=== PATIENT | female | born 1960 | race Caucasian/White ===

== ENCOUNTER 2018-01-26 11:36 | Emergency (ER) | payer SELFPAY ==
[2018-01-26] MEDS ORDERED: ONDANSETRON 4 MG/2 ML VIAL ONE ×2 (12:32→13:35)
[2018-01-26] MEDS ORDERED: FENTANYL CITR 100 MCG/2 ML ONE (12:32)
[2018-01-26 12:33] LABS: Hematocrit 26.5 % (36.0-45.0); MPV 9.3 fL (7.6-11.3)
[2018-01-26 12:34] LABS: Absolute Lymphocytes (CBC) 0.9 K/uL (0.7-4.9); Absolute Monocytes 0.4 K/uL (0.1-1.3); Absolute Neutrophil 5.1 K/uL (1.8-8.0); Basophils % 0.4 % (0-1.3); Eosinophils % 0.2 % (0-4.4); Lymphocytes % 13.9 % (15.3-44.8); Monocytes % 6.3 % (3.3-12.3)
[2018-01-26 12:37] LABS: Protime INR 1.6
--- NOTE | 2018-01-26 13:09 | RAD REPORT ---
EXAM DESCRIPTION: RAD - Hip Left 2 View - 01/26/2018 1:00 pm CLINICAL HISTORY: Left hip pain status post fall FINDINGS: Subcapital fracture involves the proximal left femur with moderate displacement of fractur e fragments. Portion of the femoral neck may also be involved. No dislocation seen
[2018-01-26] MEDS ORDERED: MORPHINE 4 MG/ML SYR ONE ×4 (13:35→19:34)
[2018-01-26 13:36] LABS: ALT/SGPT 33 U/L (12-78); AST/SGOT 75 U/L (15-37); Albumin 2.8 g/dL (3.4-5.0); Alkaline Phosphatase 147 U/L (45-117); BUN Blood Urea Nitrogen 14 mg/dL (7-18); Bicarbonate 24 mmol/L (21-32); Bilirubin Total 1.8 mg/dL (0.2-1.0); Glucose Level 109 mg/dL (74-106); Potassium 3.6 mmol/L (3.5-5.1); Protein, Total 7.5 g/dL (6.4-8.2); Sodium Level 143 mmol/L (136-145)
[2018-01-26] MEDS ORDERED: NA CHLORIDE 0.9% 1,000 ML ONE ×2 (13:36→15:58)
--- NOTE | 2018-01-26 13:42 | RAD REPORT ---
EXAM DESCRIPTION: Aurea Single View01/26/2018 1:37 pm CLINICAL HISTORY: Chest pain COMPARISON: 2017 FINDINGS: The lungs appear clear of acute infiltrate. The heart is normal size IMPRESSION: No acute abnormalities displayed
--- NOTE | 2018-01-26 13:42 | EDPHYS ---
Physician Documentation [facility] Name: Jami Brewer Age: 57 yrs Sex: Female : 1960 Arrival Date: 01/26/2018 Time: 11:41 Bed 5 Private MD: Raymond Shaver ED Physician Blake Guzman HPI: 01/26 12:00 This 57 yrs old Female presents to ER via EMS with complaints of Fall Injury, pm1 Hip Pain. 12:00 Details of fall: The patient fell from an upright position, while walking. Onset: The pm1 symptoms/episode began/occurred yesterday. Associated injuries: The patient sustained left hip. Severity of symptoms: in the emergency department the symptoms are unchanged. The patient has not experienced similar symptoms in the past. The patient has not recently seen a physician. Patient was walking outside her apartment yesterday and tripped on some cobblestones and then landed on her left hip. No headache, head injury, LOC, or neck pain. Patient reports that she was not able to get up and bear weight. She crawled into her apartment. Called the EMS today because she could not get up. 15:30 Patient's friends report that she is an alcoholic and drinks alcohol daily. pm1 Historical: - Allergies: 11:48 No Known Allergies; ph - PMHx: 11:48 Ulcers; Depression; Hypertension; Cirrhosis; ph - Immunization history: Last tetanus immunization: unknown. - Social history:: Smoking status: Patient/guardian denies using tobacco, Patient uses alcohol, last drink was [address], marijuana. - Ebola Screening: : No symptoms or risks identified at this time. ROS: 12:00 Constitutional: Negative for fever, chills, and weight loss, Eyes: Negative for injury, pm1 pain, redness, and discharge, ENT: Negative for injury, pain, and discharge, Neck: Negative for injury, pain, and swelling, Cardiovascular: Negative for chest pain, palpitations, and edema, Respiratory: Negative for shortness of breath, cough, wheezing, and pleuritic chest pain, Abdomen/GI: Negative for abdominal pain, nausea, vomiting, diarrhea, and constipation, Back: Negative for injury and pain, : Negative for injury, bleeding, discharge, and swelling. 12:00 Skin: Negative for injury, rash, and discoloration, Neuro: Negative for headache, weakness, numbness, tingling, and seizure. 12:00 MS/extremity: Positive for pain, of the left hip. Exam: 12:00 Constitutional: This is a well developed, well nourished patient who is awake, alert, pm1 and in no acute distress. Head/Face: Normocephalic, atraumatic. Eyes: Pupils equal round and reactive to light, extra-ocular motions intact. Lids and lashes normal. Conjunctiva and sclera are non-icteric and not injected. Cornea within normal limits. Periorbital areas with no swelling, redness, or edema. ENT: Nares patent. No nasal discharge, no septal abnormalities noted. Tympanic membranes are normal and external auditory canals are clear. Oropharynx with no redness, swelling, or masses, exudates, or evidence of obstruction, uvula midline. Mucous membranes moist. Neck: Trachea midline, no thyromegaly or masses palpated, and no cervical lymphadenopathy. Supple, full range of motion without nuchal rigidity, or vertebral point tenderness. No Meningismus. Chest/axilla: Normal chest wall appearance and motion. Nontender with no deformity. No lesions are appreciated. Respiratory: Lungs have equal breath sounds bilaterally, clear to auscultation and percussion. No rales, rhonchi or wheezes noted. No increased work of breathing, no retractions or nasal flaring. Abdomen/GI: Soft, non-tender, with normal bowel sounds. No distension or tympany. No guarding or rebound. No evidence of tenderness throughout. 12:00 Back: No spinal tenderness. No costovertebral tenderness. Full range of motion. 12:00 Cardiovascular: Rate: tachycardic, Rhythm: regular, Pulses: no pulse deficits are appreciated, 2+ marked with pen on left foot , Heart sounds: normal, Edema: is not appreciated. 12:00 Musculoskeletal/extremity: Extremities: grossly normal except: noted in the left hip: pain, tenderness, Sensation intact. 12:00 Skin: Appearance: normal except for affected area, ecchymosis, small bruising present to left iliac crest and left hip. Vital Signs: 11:45 BP 131 / 66; Pulse 112; Resp 20; Temp 98.0; Pulse Ox 94% on R/A; Weight 64.86 kg; ph Height 5 ft. 7 in. (170.18 cm); Pain 10/10; 13:00 BP 119 / 57; Pulse 125; Resp 20; Pulse Ox 95% on R/A; ph 14:00 BP 139 / 72; Pulse 121; Resp 18; Pulse Ox 95% on R/A; ph 15:21 BP 134 / 64; Pulse 121; Resp 18; Pulse Ox 98% on 2 lpm NC; ph 16:15 BP 139 / 74; Pulse 129; Resp 18; Pulse Ox 96% on 2 lpm NC; ph 16:15 BP 149 / 73; Pulse 124; Resp 20; Pulse Ox 96% on 2 lpm NC; ph 19:28 BP 148 / 83; Pulse 121; Resp 17; Temp 98.2; Pulse Ox 98% ; Pain 6/10; tl1 11:45 Body Mass Index 22.40 (64.86 kg, 170.18 cm) ph Ashley Coma Score: 11:45 Eye Response: spontaneous(4). Verbal Response: oriented(5). Motor Response: obeys ph commands(6). Total: 15. 13:00 Eye Response: spontaneous(4). Verbal Response: oriented(5). Motor Response: obeys ph commands(6). Total: 15. 14:00 Eye Response: spontaneous(4). Verbal Response: oriented(5). Motor Response: obeys ph commands(6). Total: 15. 15:21 Eye Response: spontaneous(4). Verbal Response: oriented(5). Motor Response: obeys ph commands(6). Total: 15. 16:15 Eye Response: spontaneous(4). Verbal Response: oriented(5). Motor Response: obeys ph commands(6). Total: 15. 16:15 Eye Response: spontaneous(4). Verbal Response: oriented(5). Motor Response: obeys ph commands(6). Total: 15. 19:33 Eye Response: spontaneous(4). Verbal Response: oriented(5). Motor Response: obeys tl1 commands(6). Total: 15. Trauma Score (Adult): 11:45 Eye Response: spontaneous(1); Verbal Response: oriented(1); Motor Response: obeys ph commands(2); Systolic BP: > 89 mm Hg(4); Respiratory Rate: 10 to 29 per min(4); Ashley Score: 15; Trauma Score: 12 13:00 Eye Response: spontaneous(1); Verbal Response: oriented(1); Motor Response: obeys ph commands(2); Systolic BP: > 89 mm Hg(4); Respiratory Rate: 10 to 29 per min(4); Ashley Score: 15; Trauma Score: 12 14:00 Eye Response: spontaneous(1); Verbal Response: oriented(1); Motor Response: obeys ph commands(2); Systolic BP: > 89 mm Hg(4); Respiratory Rate: 10 to 29 per min(4); Ashley Score: 15; Trauma Score: 12 15:21 Eye Response: spontaneous(1); Verbal Response: oriented(1); Motor Response: obeys ph commands(2); Systolic BP: > 89 mm Hg(4); Respiratory Rate: 10 to 29 per min(4); Tyrone Score: 15; Trauma Score: 12 16:15 Eye Response: spontaneous(1); Verbal Response: oriented(1); Motor Response: obeys ph commands(2); Systolic BP: > 89 mm Hg(4); Respiratory Rate: 10 to 29 per min(4); Tyrone Score: 15; Trauma Score: 12 16:15 Eye Response: spontaneous(1); Verbal Response: oriented(1); Motor Response: obeys ph commands(2); Systolic BP: > 89 mm Hg(4); Respiratory Rate: 10 to 29 per min(4); Ashley Score: 15; Trauma Score: 12 19:33 Eye Response: spontaneous(1); Verbal Response: oriented(1); Motor Response: obeys tl1 commands(2); Systolic BP: > 89 mm Hg(4); Respiratory Rate: 10 to 29 per min(4); Tyrone Score: 15; Trauma Score: 12 MDM: 11:41 Patient medically screened. pm1 13:11 Data reviewed: vital signs. Counseling: I had a detailed discussion with the patient pm1 and/or guardian regarding: the historical points, exam findings, and any diagnostic results supporting the discharge/admit diagnosis, radiology results, the need for further work-up and treatment in the hospital. 13:46 Physician consultation: Frank Kellogg MD was called at 13:46, was contacted at 13:46, pm1 regarding consult, patient's condition, after a discussion of the case, a recommendation for transfer for higher level of care is made, Requests transfer due to liver cirrhosis history and abnormal liver enzymes and abnormal PT-INR profile. 14:34 Physician consultation: Frank Kellogg MD was called at 14:34, Consulted with pmDeng Kellogg. Declined to see the patient at this time. He would like the patient to be transferred for higher level of care due to liver cirrhosis and coagulopathy. Speciality for GI and infectious disease is present at [facility] for evaluation and treatment prior to surgery. 15:21 ED course: Spoke with Dr. Kellogg, who came to evaluate patient in ER, states pt with rn cirrhosis, a 1 day old injury, is stable, still recommends transfer given alcoholic cirrhosis, and coagulopathy. . 15:23 ED course: At this point, we have gotten administration, ER director, chief mechanical engineer rn involved to resolve this matter, ultimate direction that I received from these sources is to transfer for higher level of care. . 15:56 ED course: Patient accepted to [facility] without a report. pm1 01/26 12:23 Order name: CBC with Diff; Complete Time: 12:55 pm1 01/26 12:23 Order name: CMP; Complete Time: 13:39 pm1 01/26 11:52 Order name: Hip Left 2 View XRAY; Complete Time: 13:12 pm1 01/26 12:23 Order name: PT-INR; Complete Time: 12:55 pm1 01/26 12:58 Order name: Chest Single View XRAY; Complete Time: 13:46 pm1 01/26 13:14 Order name: Type And Screen; Complete Time: 15:19 pm1 01/26 11:55 Order name: IV Saline Lock; Complete Time: 12:25 pm1 01/26 12:58 Order name: EKG; Complete Time: 12:59 pm1 01/26 12:58 Order name: EKG - Nurse/Tech; Complete Time: 14:09 pm1 01/26 12:59 Order name: Urine Dipstick-Ancillary (obtain specimen); Complete Time: 15:18 pm1 Administered Medications: 12:26 Drug: Zofran 4 mg Route: IVP; Site: right antecubital; hb 13:30 Follow up: Response: No adverse reaction ph 12:28 Drug: fentaNYL (PF) 50 mcg Route: IVP; Site: right antecubital; hb 13:30 Follow up: Response: No adverse reaction ph 13:45 Drug: morphine 4 mg Route: IVP; Site: right forearm; ph 14:15 Follow up: Response: No adverse reaction; Pain is decreased ph 13:45 Drug: NS 0.9% 500 ml Route: IV; Rate: bolus; Site: right forearm; ph 14:30 Follow up: Response: No adverse reaction; IV Status: Completed infusion ph 14:55 Drug: NS 0.9% 1000 ml Route: IV; Rate: 100 ml/hr; Site: right forearm; ph 17:09 Follow up: Response: No adverse reaction; IV Status: Infusion continued upon admission ph 14:55 Drug: morphine 4 mg Route: IVP; Site: right forearm; ph 15:30 Follow up: Response: No adverse reaction; Pain is decreased ph 14:55 Drug: NS 0.9% 500 ml Route: IV; Rate: bolus; Site: right forearm; ph 15:45 Follow up: Response: No adverse reaction; IV Status: Completed infusion ph 15:54 Drug: Valium 5 mg Route: IVP; Site: right forearm; ph 16:15 Follow up: Response: No adverse reaction; Anxiety decreased ph 17:08 Drug: morphine 4 mg Route: IVP; Site: right forearm; ph 17:28 Follow up: Response: No adverse reaction; Pain is decreased ph 19:27 Drug: morphine 4 mg Route: IVP; Infused Over: 2 mins; Site: right forearm; tl1 19:28 Follow up: Response: No adverse reaction; Temperature is decreased; medication tl1 administered upon transfer Disposition: 01/26/18 13:[address] [facility]. Diagnosis are Subcapital fracture of the left proximal femur, Anemia, unspecified, Thrombocytopenia, unspecified, Alcohol dependence with withdrawal. - Reason for transfer: Higher level of care. - Accepting physician is [facility]. - Condition is Stable. - Problem is new. - Symptoms have improved. Addendum: 02/04/2018 06:58 Co-signature as Attending Physician, Blake Guzman MD. r n Signatures: Dispatcher [employer] EDBlake Zaragoza MD MD rn Lasagna, Tonya RN RN tl1 Yola Mathis RN RN Roshan Quinteros, MEDIA EXECUTIVE MEDIA EXECUTIVE pm1 Gala Alonso, ALEXI RN Corrections: (The following items were deleted from the chart) 01/26 13:52 13:42 Hospitalization Ordered by Sima Ott MD for Observation. Preliminary pm1 diagnosis is Left subcapital femur fracture ; Anemia, unspecified. Bed requested for Telemetry/MedSurg (observation). Status is Observation. Condition is Stable. Problem is new. Symptoms have improved. UTI on Admission? No. pm1 15:42 13:53 01/26/2018 13:[address] [facility]. Diagnosis is pm1 Subcapital fracture of the left proximal femur. Reason for transfer: Higher level of care. Accepting physician is [facility]. Condition is Stable. Problem is new. Symptoms have improved. pm1 19:16 15:42 01/26/2018 13:[address] [facility]. Diagnosis is tl1 Subcapital fracture of the left proximal femur; Anemia, unspecified; Thrombocytopenia, unspecified; Alcohol dependence with withdrawal. Reason for transfer: Higher level of care. Accepting physician is [facility]. Condition is Stable. Problem is new. Symptoms have improved. pm1 19:44 19:16 01/26/2018 13:[address] [facility]. Diagnosis is tl1 Subcapital fracture of the left proximal femur; Anemia, unspecified; Thrombocytopenia, unspecified; Alcohol dependence with withdrawal. Reason for transfer: Higher level of care. Accepting physician is [facility]. Condition is Stable. Problem is new. Symptoms have improved. tl1
--- NOTE | 2018-01-26 13:42 | ER ---
Nurse's Notes [facility] Name: Jami Brewer Age: 57 yrs Sex: Female : 1960 Arrival Date: 01/26/2018 Time: 11:41 Bed 5 Private MD: Raymond Shaver Diagnosis: Subcapital fracture of the left proximal femur;Anemia, unspecified;Thrombocytopenia, unspecified;Alcohol dependence with withdrawal Presentation: 01/26 11:42 Presenting complaint: EMS states: Pt reports falling 3 times in the last 2 weeks, fel ph yesterday onto [place] and is c/o pain in L hip, states that she did hit her head but denies LOC or blood thinner use, also c/o pain in R elbow, hx of depression and recently started taking citalopram which she thinks may be contributing to her falling. Care prior to arrival: None. Mechanism of Injury: Fall from standing position. Trauma event details: Injury occurred in the [facility], Injury occurred: at home. Injury occurred: January 25, 2018. 11:42 Acuity: PRECIOUS 3 ph 11:42 Method Of Arrival: EMS: [facility] ph 11:57 Transition of care: patient was not received from another setting of care. Onset of ph symptoms was January 26, 2018. Risk Assessment: Do you want to hurt yourself or someone else? Patient reports no desire to harm self or others. Initial Sepsis Screen: Does the patient meet any 2 criteria? No. Patient's initial sepsis screen is negative. Does the patient have a suspected source of infection? No. Patient's initial sepsis screen is negative. Trauma Activation: Not Applicable Physician: ED Physician; Name: ; Notified At: ; Arrived At: Physician: General Surgeon; Name: ; Notified At: ; Arrived At: Physician: Radiology; Name: ; Notified At: ; Arrived At: Physician: Respiratory; Name: ; Notified At: ; Arrived At: Physician: Lab; Name: ; Notified At: ; Arrived At: Historical: - Allergies: 11:48 No Known Allergies; ph - PMHx: 11:48 Ulcers; Depression; Hypertension; Cirrhosis; ph - Immunization history: Last tetanus immunization: unknown. - Social history:: Smoking status: Patient/guardian denies using tobacco, Patient uses alcohol, last drink was [address], marijuana. - Ebola Screening: : No symptoms or risks identified at this time. Screenin:52 Abuse screen: Denies threats or abuse. Denies injuries from another. Nutritional ph screening: No deficits noted. Tuberculosis screening: No symptoms or risk factors identified. Fall Risk Fall in past 12 months (25 points). No secondary diagnosis (0 pts). No IV (0 pts). Ambulatory Aid- None/Bed Rest/Nurse Assist (0 pts). Gait- Impaired (20 pts.). Mental Status- Oriented to own ability (0 pts). Total Angulo Fall Scale indicates High Risk Score (45 or more points). Fall prevention measures have been instituted. Side Rails Up X 2 Frequent Obs/Assessments Occuring As available patient and family educated on Fall Prevention Program and Strategies. Primary Survey: 11:48 NO uncontrolled hemorrhage observed. A: The patient is alert. Airway: patent, No ph supplemental oxygen in use on arrival. Oral cavity: clear, Trachea midline. Breathing/Chest: Respiratory pattern: regular, Respiratory effort: spontaneous, unlabored, Breath sounds: clear, bilaterally. Chest inspection: symmetrical rise and fall of the chest. Circulation: Pulses: palpable right radial artery, right dorsalis pedis artery, left radial artery and left dorsalis pedis artery. Skin color: pink, Skin temperature: warm, dry. Disability Alert. Exposure/Environment: There is no evidence of uncontrolled external bleeding. Obvious injury(ies) are noted at this time: pt c/o pain to L hip and R elbow. 14:11 Reassessment Breathing/Chest Respiratory pattern Regular Respiratory effort Spontaneous ph Unlabored Disability Alert. Secondary Survey: 11:58 HEENT: No deficits noted. Gastrointestinal: No deficits noted. : No signs and/or ph symptoms were reported regarding the genitourinary system. Musculoskeletal: Circulation, motion, and sensation intact. Range of motion: limited in left hip. Assessment: 11:54 General: Appears in no apparent distress. uncomfortable, Behavior is calm, cooperative, ph appropriate for age. Pain: Complains of pain in left upper thigh and right shoulder. Neuro: Level of Consciousness is awake, alert, obeys commands, Oriented to person, place, time, situation. Cardiovascular: Capillary refill < 3 seconds in bilateral fingers Patient's skin is warm and dry. Respiratory: Airway is patent Respiratory effort is even, unlabored, Respiratory pattern is regular, symmetrical. GI: No signs and/or symptoms were reported involving the gastrointestinal system. Derm: Skin is intact, is healthy with good turgor, Skin is pink, warm \\T\\ dry. Bruising that is dark purple, on left hip. Musculoskeletal: Circulation, motion, and sensation intact. Range of motion: limited in left hip. 13:45 Reassessment: Patient appears in no apparent distress at this time. Patient and/or ph family updated on plan of care and expected duration. Pain level reassessed. Patient is alert, oriented x 3, equal unlabored respirations, skin warm/dry/pink. Attempted to place Bledsoe pt, unable to do so, charge nurse also attempted and was unsuccessful as well. 14:00 Reassessment: Patient appears in no apparent distress at this time. Stephanie CROSSP ph at bedside to attempt Bledsoe placement. 14:35 Reassessment: Patient appears in no apparent distress at this time. Patient and/or ph family updated on plan of care and expected duration. Pain level reassessed. Patient is alert, oriented x 3, equal unlabored respirations, skin warm/dry/pink. Pt rates pain 9/10 at this time, repositioned onto R side with pillows behind back for comfort, pt states, " That helped a little bit." ERP notified of pt's pain level, see MAR for orders. 15:18 Reassessment: Patient appears in no apparent distress at this time. Patient and/or ph family updated on plan of care and expected duration. Pain level reassessed. Patient is alert, oriented x 3, equal unlabored respirations, skin warm/dry/pink. 16:00 Reassessment: Patient appears in no apparent distress at this time. Patient and/or ph family updated on plan of care and expected duration. Pain level reassessed. Patient is alert, oriented x 3, equal unlabored respirations, skin warm/dry/pink. 17:00 Reassessment: Patient appears in no apparent distress at this time. Patient and/or ph family updated on plan of care and expected duration. Pain level reassessed. Patient is alert, oriented x 3, equal unlabored respirations, skin warm/dry/pink. Report called to [facility], awaiting EMS for transport. Vital Signs: 11:45 BP 131 / 66; Pulse 112; Resp 20; Temp 98.0; Pulse Ox 94% on R/A; Weight 64.86 kg; ph Height 5 ft. 7 in. (170.18 cm); Pain 10/10; 13:00 BP 119 / 57; Pulse 125; Resp 20; Pulse Ox 95% on R/A; ph 14:00 BP 139 / 72; Pulse 121; Resp 18; Pulse Ox 95% on R/A; ph 15:21 BP 134 / 64; Pulse 121; Resp 18; Pulse Ox 98% on 2 lpm NC; ph 16:15 BP 139 / 74; Pulse 129; Resp 18; Pulse Ox 96% on 2 lpm NC; ph 16:15 BP 149 / 73; Pulse 124; Resp 20; Pulse Ox 96% on 2 lpm NC; ph 19:28 BP 148 / 83; Pulse 121; Resp 17; Temp 98.2; Pulse Ox 98% ; Pain 6/10; tl1 11:45 Body Mass Index 22.40 (64.86 kg, 170.18 cm) ph Ashley Coma Score: 11:45 Eye Response: spontaneous(4). Verbal Response: oriented(5). Motor Response: obeys ph commands(6). Total: 15. 13:00 Eye Response: spontaneous(4). Verbal Response: oriented(5). Motor Response: obeys ph commands(6). Total: 15. 14:00 Eye Response: spontaneous(4). Verbal Response: oriented(5). Motor Response: obeys ph commands(6). Total: 15. 15:21 Eye Response: spontaneous(4). Verbal Response: oriented(5). Motor Response: obeys ph commands(6). Total: 15. 16:15 Eye Response: spontaneous(4). Verbal Response: oriented(5). Motor Response: obeys ph commands(6). Total: 15. 16:15 Eye Response: spontaneous(4). Verbal Response: oriented(5). Motor Response: obeys ph commands(6). Total: 15. 19:33 Eye Response: spontaneous(4). Verbal Response: oriented(5). Motor Response: obeys tl1 commands(6). Total: 15. Trauma Score (Adult): 11:45 Eye Response: spontaneous(1); Verbal Response: oriented(1); Motor Response: obeys ph commands(2); Systolic BP: > 89 mm Hg(4); Respiratory Rate: 10 to 29 per min(4); Ashley Score: 15; Trauma Score: 12 13:00 Eye Response: spontaneous(1); Verbal Response: oriented(1); Motor Response: obeys ph commands(2); Systolic BP: > 89 mm Hg(4); Respiratory Rate: 10 to 29 per min(4); [place] Score: 15; Trauma Score: 12 14:00 Eye Response: spontaneous(1); Verbal Response: oriented(1); Motor Response: obeys ph commands(2); Systolic BP: > 89 mm Hg(4); Respiratory Rate: 10 to 29 per min(4); Ashley Score: 15; Trauma Score: 12 15:21 Eye Response: spontaneous(1); Verbal Response: oriented(1); Motor Response: obeys ph commands(2); Systolic BP: > 89 mm Hg(4); Respiratory Rate: 10 to 29 per min(4); Ashley Score: 15; Trauma Score: 12 16:15 Eye Response: spontaneous(1); Verbal Response: oriented(1); Motor Response: obeys ph commands(2); Systolic BP: > 89 mm Hg(4); Respiratory Rate: 10 to 29 per min(4); Ashley Score: 15; Trauma Score: 12 16:15 Eye Response: spontaneous(1); Verbal Response: oriented(1); Motor Response: obeys ph commands(2); Systolic BP: > 89 mm Hg(4); Respiratory Rate: 10 to 29 per min(4); [place] Score: 15; Trauma Score: 12 19:33 Eye Response: spontaneous(1); Verbal Response: oriented(1); Motor Response: obeys tl1 commands(2); Systolic BP: > 89 mm Hg(4); Respiratory Rate: 10 to 29 per min(4); [place] Score: 15; Trauma Score: 12 ED Course: 11:41 Patient arrived in ED. ph 11:41 Roshan Lewis NP is PHCP. pm1 11:41 Blake Guzman MD is Attending Physician. pm1 11:45 Triage completed. ph 11:51 Marnie Vaz, ALEXI is Primary Nurse. sv 11:52 Arm band placed on. ph 11:56 Patient has correct armband on for positive identification. Bed in low position. Call ph light in reach. Side rails up X2. Pulse ox on. NIBP on. Warm blanket given. Pillow given. 11:58 Patient maintains SpO2 saturation greater than 95% on room air. Thermoregulation: warm ph blanket given to patient. 12:24 Yola Mathis RN is Primary Nurse. ph 12:24 Initial lab(s) drawn, by la, sent to lab. Inserted saline lock: 22 gauge in right jb1 forearm, using aseptic technique. Blood collected. 12:55 X-ray completed. Portable x-ray completed in exam room. Patient tolerated procedure ag1 poorly. 13:00 Hip Left 2 View XRAY In Process Unspecified. EDMS 13:18 No provider procedures requiring assistance completed. ph 13:23 EKG done, by pharmacy technology instructor. reviewed by Roshan Lewis NP. dt2 13:37 Chest Single View XRAY In Process Unspecified. EDMS 13:39 Sima Ott MD is Hospitalizing Provider. pm1 13:45 X-ray completed. Portable x-ray completed in exam room. ag1 14:06 Initiate a transfer with Nieves at [facility] transfer center. lt1 14:30 Bledsoe cath inserted, using sterile technique, 16 Fr., by ED staff, balloon inflated, to ph gravity drainage, urine specimen collected. returned glen urine. Patient tolerated well. 15:00 Patient was declined to transfer to [facility] per Nieves at the transfer center due lt1 to hospital being full. 15:02 Raymond Shaver MD is Private Physician. lt1 15:35 Initiate transfer with Shirley at [facility]. lt1 15:56 administrative approval given by Shirley Reddy RN head transfer clerk/ pt going to the ER/ eb Report to be called [phone]/ Dr. Wiggins accepted the patient in transfer. 19:22 Primary Nurse role handed off by Yola Mathis RN tl1 19:32 Patient transferred, IV remains in place. tl1 Administered Medications: 12:26 Drug: Zofran 4 mg Route: IVP; Site: right antecubital; hb 13:30 Follow up: Response: No adverse reaction ph 12:28 Drug: fentaNYL (PF) 50 mcg Route: IVP; Site: right antecubital; hb 13:30 Follow up: Response: No adverse reaction ph 13:45 Drug: morphine 4 mg Route: IVP; Site: right forearm; ph 14:15 Follow up: Response: No adverse reaction; Pain is decreased ph 13:45 Drug: NS 0.9% 500 ml Route: IV; Rate: bolus; Site: right forearm; ph 14:30 Follow up: Response: No adverse reaction; IV Status: Completed infusion ph 14:55 Drug: NS 0.9% 1000 ml Route: IV; Rate: 100 ml/hr; Site: right forearm; ph 17:09 Follow up: Response: No adverse reaction; IV Status: Infusion continued upon admission ph 14:55 Drug: morphine 4 mg Route: IVP; Site: right forearm; ph 15:30 Follow up: Response: No adverse reaction; Pain is decreased ph 14:55 Drug: NS 0.9% 500 ml Route: IV; Rate: bolus; Site: right forearm; ph 15:45 Follow up: Response: No adverse reaction; IV Status: Completed infusion ph 15:54 Drug: Valium 5 mg Route: IVP; Site: right forearm; ph 16:15 Follow up: Response: No adverse reaction; Anxiety decreased ph 17:08 Drug: morphine 4 mg Route: IVP; Site: right forearm; ph 17:28 Follow up: Response: No adverse reaction; Pain is decreased ph 19:27 Drug: morphine 4 mg Route: IVP; Infused Over: 2 mins; Site: right forearm; tl1 19:28 Follow up: Response: No adverse reaction; Temperature is decreased; medication tl1 administered upon transfer Intake: 11:45 PO: 0ml; Total: 0ml. ph 15:21 IV: 1000ml (IV Fluid); Total: 1000ml. ph 16:15 IV: 100ml (IV Fluid); Total: 1100ml. ph 16:15 IV: 100ml (IV Fluid); Total: 1200ml. ph Output: 11:45 Urine: 0ml; Total: 0ml. ph 16:15 Urine: 400ml (Bledsoe); Total: 400ml. ph Outcome: 13:42 Decision to Hospitalize by Provider. pm1 13:53 ER care complete, transfer ordered by MD. pm1 19:16 Patient left the ED. tl1 19:31 Transferred by ground EMS to [facility], Transfer form completed. X-rays sent tl1 w/ patient. 19:31 Condition: stable 19:31 Instructed on the need for transfer. 19:32 accepting facility acceptance of patient Patient's length of stay extended due to tl1 19:44 Patient left the ED. tl1 Signatures: Dispatcher [employer] ED Aakash Evans jb1 Marnie Vaz, ALEXI TRUONG sv Karen Hanson RN RN tl1 Yola Mathis RN RN Judith Carvalho ag1 Roshan Lewis, GEOTHERMAL TECHNICIAN GEOTHERMAL TECHNICIAN pm1 Gala Alonso RN RN hb Botello, Elizabeth eb Teague, Danielle dt2 Megan Queen 1 Corrections: (The following items were deleted from the chart) 12:56 12:54 X-ray completed. Portable x-ray completed in exam room. Patient tolerated ag1 procedure well. ag1 15:57 11:45 morphine 4 mg IVP in right forearm ph ph
[2018-01-26] MEDS ORDERED: DIAZEPAM 10 MG/2 ML INJ SYRINGE ONE (15:53)
--- NOTE | 2018-01-26 18:06 | EKG ---
Test Date: 2018-01-26 Test Time: 13:17:04 Zone Maintenance Technician: MANOHAR MEASUREMENT RESULTS: Intervals: Rate: 120 VT: 146 QRSD: 80 QT: 340 QTc: 480 [place]: P: 85 VT: 146 QRS: 73 T: 76 INTERPRETIVE STATEMENTS: Sinus tachycardia Minimal voltage criteria for LVH, may be normal variant Borderline ECG Compared to ECG 08/31/2016 23:43:00 Left ventricular hypertrophy now present Myocardial infarct finding no longer present Electronically Signed On 01-26-18 18:04:46 SENIOR QC TECHNICIAN by Iban Levine
--- OUTSIDE RECORDS SUMMARY | 2018-01-26 18:54 | XMS REPORT ---
:1960 [facility] Address [address] [place] [id number] Care Team Providers Name Role Phone STEPHANIE MAYA Unavailable Unavailable Problems This patient has no known problems. Allergies, Adverse Reactions, Alerts This patient has no known allergies or adverse reactions. Medications This patient has no known medications. Results Test Description Test Time Test Comments Text Results Atomic Results Result Comments BLOOD CULTURE 2016-09-06 11:00:00 Test Item Value Reference Range Comments CULTURE (BEAKER) (test ldyu=2048) No growth in 5 days BLOOD [id number] 11:00:00 Test Item Value Reference Range Comments CULTURE (BEAKER) (test iqgv=6425) No growth in 5 days CBC W/PLT COUNT & AUTO [id number] 08:38:00 Test Item Value Reference Range Comments WHITE BLOOD CELL COUNT (BEAKER) (test hxso=456) 9.6 K/ L 3.5-10.5 RED BLOOD CELL COUNT (BEAKER) (test hogk=284) 3.00 M/ L 3.93-5.22 HEMOGLOBIN (BEAKER) (test ciuy=063) 7.4 GM/DL 11.2-15.7 HEMATOCRIT (BEAKER) (test jshe=961) 24.4 % 34.1-44.9 MEAN CORPUSCULAR VOLUME (BEAKER) (test wqhy=459) 81.3 fL 79.4-94.8 MEAN CORPUSCULAR HEMOGLOBIN (BEAKER) (test 24.7 pg 25.6-32.2 qodd=442) MEAN CORPUSCULAR HEMOGLOBIN CONC (BEAKER) (test 30.3 GM/DL 32.2-35.5 tshx=415) RED CELL DISTRIBUTION WIDTH (BEAKER) (test 22.5 % 11.7-14.4 vfec=695) PLATELET COUNT (BEAKER) (test gqts=082) 91 K/CU MM 150-450 MEAN PLATELET VOLUME (BEAKER) (test cfmx=394) 10.3 fL 9.4-12.3 NUCLEATED RED BLOOD CELLS (BEAKER) (test 0 /100 WBC 0-0 waxi=652) NEUTROPHILS RELATIVE PERCENT (BEAKER) (test 71 % jpmi=088) LYMPHOCYTES RELATIVE PERCENT (BEAKER) (test 15 % ewbi=612) MONOCYTES RELATIVE PERCENT (BEAKER) (test 10 % ytyk=049) EOSINOPHILS RELATIVE PERCENT (BEAKER) (test 4 % zbci=883) BASOPHILS RELATIVE PERCENT (BEAKER) (test 1 % kuis=047) NEUTROPHILS ABSOLUTE COUNT (BEAKER) (test 6.82 K/ L 1.56-6.13 eddv=192) LYMPHOCYTES ABSOLUTE COUNT (BEAKER) (test 1.39 K/ L 1.18-3.74 ityk=287) MONOCYTES ABSOLUTE COUNT (BEAKER) (test kgay=939) 0.92 K/ L 0.24-0.36 EOSINOPHILS ABSOLUTE COUNT (BEAKER) (test 0.37 K/ L 0.04-0.36 kkfg=594) BASOPHILS ABSOLUTE COUNT (BEAKER) (test fgmw=577) 0.06 K/ L 0.01-0.08 IMMATURE GRANULOCYTES-RELATIVE PERCENT (BEAKER) 1 % 0-1 (test rqlp=8249) COMPREHENSIVE METABOLIC [id number] 07:11:00 Test Item Value Reference Range Comments TOTAL PROTEIN (BEAKER) 6.5 gm/dL 6.0-8.3 (test pczc=787) ALBUMIN (BEAKER) (test 2.2 g/dL 3.5-5.0 hyxy=9610) ALKALINE PHOSPHATASE 111 U/L 40-150 (BEAKER) (test mpwf=819) BILIRUBIN TOTAL (BEAKER) 3.2 mg/dL 0.2-1.2 (test plzu=009) SODIUM (BEAKER) (test 139 meq/L 136-145 vfhc=727) POTASSIUM (BEAKER) (test 3.2 meq/L 3.5-5.1 vrmd=489) CHLORIDE (BEAKER) (test 105 meq/L 98-107 rcvl=514) CO2 (BEAKER) (test 27 meq/L 22-29 kkxc=738) BLOOD UREA NITROGEN 4 mg/dL 7-21 (BEAKER) (test nrsu=053) CREATININE (BEAKER) (test 0.63 mg/dL 0.57-1.25 ccxh=838) GLUCOSE RANDOM (BEAKER) 107 mg/dL 70-105 (test rvfb=549) CALCIUM (BEAKER) (test 7.7 mg/dL 8.4-10.2 gath=243) AST (SGOT) (BEAKER) (test 55 U/L 5-34 mxux=620) ALT (SGPT) (BEAKER) (test 17 U/L 6-55 evtg=507) EGFR (BEAKER) (test 98 mL/min/1.73 sq m ESTIMATED GFR IS NOT pntz=3555) ACCURATE CREATININE CLEARANCE IN PREDICTING GLOMERULAR FILTRATION RATE. ESTIMATED GFR IS NOT APPLICABLE FOR DIALYSIS PATIENTS. Specimen slightly ictericPROTHROMBIN [id number] 06:07:00 Test Item Value Reference Range Comments PROTIME (BEAKER) (test yttz=395) 23.2 seconds 11.7-14.7 INR (BEAKER) (test rjzi=606) 2.1 <=5.9 RECOMMENDED COUMADIN/WARFARIN INR THERAPY RANGESSTANDARD DOSE: 2.0 - 3.0 Includes: PROPHYLAXIS forvenous thrombosis, systemic embolization; TREATMENT for venous thrombosis and/or pulmonary embolus.HIGH RISK: Target INR is 2.5-3.5 for patients with mechanical heart valves.BODY FLUID CULTURE + GRAM [id number] 00:14:00 Test Item Value Reference Range Comments CULTURE (BEAKER) (test ptun=0024) No growth GRAM STAIN RESULT (BEAKER) (test No WBCs ddnq=9106) GRAM STAIN RESULT (BEAKER) (test No organisms seen uwji=29047) HEMOGLOBIN AND [id number] 23:16:00 Test Item Value Reference Range Comments HEMOGLOBIN (BEAKER) (test sjkg=741) 7.4 GM/DL 11.2-15.7 HEMATOCRIT (BEAKER) (test rzkt=728) 24.6 % 34.1-44.9 HEMOGLOBIN AND [id number] 10:55:00 Test Item Value Reference Range Comments HEMOGLOBIN (BEAKER) (test ecjp=545) 8.2 GM/DL 11.2-15.7 HEMATOCRIT (BEAKER) (test kvkk=633) 27.2 % 34.1-44.9 CBC W/PLT COUNT & AUTO [id number] 09:09:00 Test Item Value Reference Range Comments WHITE BLOOD CELL COUNT 7.7 K/ L 3.5-10.5 (BEAKER) (test rupl=875) RED BLOOD CELL COUNT (BEAKER) 3.02 M/ L 3.93-5.22 (test clrr=549) HEMOGLOBIN (BEAKER) (test 7.4 GM/DL 11.2-15.7 nanx=882) HEMATOCRIT (BEAKER) (test 24.0 % 34.1-44.9 bfhi=240) MEAN CORPUSCULAR VOLUME 79.5 fL 79.4-94.8 (BEAKER) (test tufn=568) MEAN CORPUSCULAR HEMOGLOBIN 24.5 pg 25.6-32.2 (BEAKER) (test dxdh=894) MEAN CORPUSCULAR HEMOGLOBIN 30.8 GM/DL 32.2-35.5 CONC (BEAKER) (test ihpj=715) RED CELL DISTRIBUTION WIDTH 22.2 % 11.7-14.4 (BEAKER) (test kitv=747) PLATELET COUNT (BEAKER) (test 77 K/CU MM 150-450 srwk=693) MEAN PLATELET VOLUME (BEAKER) fL 9.4-12.3 Unable to report due to (test vkwr=540) abnormal Platelet population distribution. NUCLEATED RED BLOOD CELLS 0 /100 WBC 0-0 (BEAKER) (test vtfg=665) NEUTROPHILS RELATIVE PERCENT 69 % (BEAKER) (test vtyz=760) LYMPHOCYTES RELATIVE PERCENT 15 % (BEAKER) (test ayws=486) MONOCYTES RELATIVE PERCENT 11 % (BEAKER) (test bsiy=290) EOSINOPHILS RELATIVE PERCENT 4 % (BEAKER) (test gtol=143) BASOPHILS RELATIVE PERCENT 1 % (BEAKER) (test qlbv=197) NEUTROPHILS ABSOLUTE COUNT 5.26 K/ L 1.56-6.13 (BEAKER) (test wcgu=644) LYMPHOCYTES ABSOLUTE COUNT 1.16 K/ L 1.18-3.74 (BEAKER) (test ziax=495) MONOCYTES ABSOLUTE COUNT 0.84 K/ L 0.24-0.36 (BEAKER) (test fchj=263) EOSINOPHILS ABSOLUTE COUNT 0.30 K/ L 0.04-0.36 (BEAKER) (test bxpu=600) BASOPHILS ABSOLUTE COUNT 0.06 K/ L 0.01-0.08 (BEAKER) (test cfpk=455) IMMATURE GRANULOCYTES-RELATIVE 1 % 0-1 PERCENT (BEAKER) (test qjyp=3762) COMPREHENSIVE METABOLIC [id number] 07:08:00 Test Item Value Reference Range Comments TOTAL PROTEIN (BEAKER) 6.8 gm/dL 6.0-8.3 (test cskp=971) ALBUMIN (BEAKER) (test 2.3 g/dL 3.5-5.0 qmqj=8530) ALKALINE PHOSPHATASE 116 U/L 40-150 (BEAKER) (test vyit=338) BILIRUBIN TOTAL (BEAKER) 3.3 mg/dL 0.2-1.2 (test effl=143) SODIUM (BEAKER) (test 137 meq/L 136-145 gvww=148) POTASSIUM (BEAKER) (test 3.0 meq/L 3.5-5.1 ypnb=763) CHLORIDE (BEAKER) (test 103 meq/L 98-107 asnc=503) CO2 (BEAKER) (test 27 meq/L 22-29 zbad=432) BLOOD UREA NITROGEN 5 mg/dL 7-21 (BEAKER) (test dwsf=873) CREATININE (BEAKER) (test 0.61 mg/dL 0.57-1.25 hoaq=116) GLUCOSE RANDOM (BEAKER) 112 mg/dL 70-105 (test hkii=936) CALCIUM (BEAKER) (test 7.5 mg/dL 8.4-10.2 pvgs=044) AST (SGOT) (BEAKER) (test 55 U/L 5-34 zdyg=507) ALT (SGPT) (BEAKER) (test 17 U/L 6-55 fqid=483) EGFR (BEAKER) (test 102 mL/min/1.73 sq ESTIMATED GFR IS NOT wusc=1812) m ACCURATE CREATININE CLEARANCE IN PREDICTING GLOMERULAR FILTRATION RATE. ESTIMATED GFR IS NOT APPLICABLE FOR DIALYSIS PATIENTS. Specimen slightly ictericPROTHROMBIN [id number] 06:40:00 Test Item Value Reference Range Comments PROTIME (BEAKER) (test gfcj=667) 23.1 seconds 11.7-14.7 INR (BEAKER) (test mvtr=219) 2.0 <=5.9 RECOMMENDED COUMADIN/WARFARIN INR THERAPY RANGESSTANDARD DOSE: 2.0 - 3.0 Includes: PROPHYLAXIS forvenous thrombosis, systemic embolization; TREATMENT for venous thrombosis and/or pulmonary embolus.HIGH RISK: Target INR is 2.5-3.5 for patients with mechanical heart valves.HEMOGLOBIN AND [id number] 21 :22:00 Test Item Value Reference Range Comments HEMOGLOBIN (BEAKER) (test cevi=414) 8.0 GM/DL 11.2-15.7 HEMATOCRIT (BEAKER) (test bnpd=429) 26.2 % 34.1-44.9 ANTI-NUCLEAR ANTIBODY (FLORES)2016-09-02 13:41:00 Test Item Value Reference Range Comments ANTI-NUCLEAR ANTIBODY (FLORES) (BEAKER) (test Negative Negative fasz=640) CBC W/PLT COUNT & AUTO [id number] 06:28:00 Test Item Value Reference Range Comments WHITE BLOOD CELL COUNT (BEAKER) (test anwc=187) 5.6 K/ L 3.5-10.5 RED BLOOD CELL COUNT (BEAKER) (test tinf=223) 2.98 M/ L 3.93-5.22 HEMOGLOBIN (BEAKER) (test xvmh=710) 7.4 GM/DL 11.2-15.7 HEMATOCRIT (BEAKER) (test dyga=373) 23.7 % 34.1-44.9 MEAN CORPUSCULAR VOLUME (BEAKER) (test itgk=166) 79.5 fL 79.4-94.8 MEAN CORPUSCULAR HEMOGLOBIN (BEAKER) (test 24.8 pg 25.6-32.2 nhuq=937) MEAN CORPUSCULAR HEMOGLOBIN CONC (BEAKER) (test 31.2 GM/DL 32.2-35.5 ghwj=150) RED CELL DISTRIBUTION WIDTH (BEAKER) (test 21.3 % 11.7-14.4 elbk=819) PLATELET COUNT (BEAKER) (test bjmx=772) 77 K/CU MM 150-450 MEAN PLATELET VOLUME (BEAKER) (test mzah=184) 10.4 fL 9.4-12.3 NUCLEATED RED BLOOD CELLS (BEAKER) (test 0 /100 WBC 0-0 ghog=654) NEUTROPHILS RELATIVE PERCENT (BEAKER) (test 63 % qyxm=790) LYMPHOCYTES RELATIVE PERCENT (BEAKER) (test 21 % oehl=706) MONOCYTES RELATIVE PERCENT (BEAKER) (test 12 % dimr=093) EOSINOPHILS RELATIVE PERCENT (BEAKER) (test 3 % nvsm=037) BASOPHILS RELATIVE PERCENT (BEAKER) (test 1 % olap=310) NEUTROPHILS ABSOLUTE COUNT (BEAKER) (test 3.53 K/ L 1.56-6.13 igjt=858) LYMPHOCYTES ABSOLUTE COUNT (BEAKER) (test 1.15 K/ L 1.18-3.74 yuok=747) MONOCYTES ABSOLUTE COUNT (BEAKER) (test ttln=979) 0.68 K/ L 0.24-0.36 EOSINOPHILS ABSOLUTE COUNT (BEAKER) (test 0.17 K/ L 0.04-0.36 rrbb=371) BASOPHILS ABSOLUTE COUNT (BEAKER) (test jfcs=490) 0.05 K/ L 0.01-0.08 IMMATURE GRANULOCYTES-RELATIVE PERCENT (BEAKER) 1 % 0-1 (test nxhv=6141) COMPREHENSIVE METABOLIC [id number] 05:34:00 Test Item Value Reference Range Comments TOTAL PROTEIN (BEAKER) 7.0 gm/dL 6.0-8.3 (test msqq=138) ALBUMIN (BEAKER) (test 2.4 g/dL 3.5-5.0 djob=7010) ALKALINE PHOSPHATASE 120 U/L 40-150 (BEAKER) (test krlg=156) BILIRUBIN TOTAL (BEAKER) 2.7 mg/dL 0.2-1.2 (test dpxx=018) SODIUM (BEAKER) (test 137 meq/L 136-145 vtsc=878) POTASSIUM (BEAKER) (test 3.7 meq/L 3.5-5.1 yrhh=836) CHLORIDE (BEAKER) (test 106 meq/L 98-107 nvyd=272) CO2 (BEAKER) (test 25 meq/L 22-29 eplx=012) BLOOD UREA NITROGEN 9 mg/dL 7-21 (BEAKER) (test fxeb=657) CREATININE (BEAKER) (test 0.61 mg/dL 0.57-1.25 nxtb=588) GLUCOSE RANDOM (BEAKER) 135 mg/dL 70-105 (test zmeg=059) CALCIUM (BEAKER) (test 7.3 mg/dL 8.4-10.2 mrmq=549) AST (SGOT) (BEAKER) (test 67 U/L 5-34 dtue=700) ALT (SGPT) (BEAKER) (test 21 U/L 6-55 uxxk=400) EGFR (BEAKER) (test 102 mL/min/1.73 sq ESTIMATED GFR IS NOT corp=3802) m ACCURATE CREATININE CLEARANCE IN PREDICTING GLOMERULAR FILTRATION RATE. ESTIMATED GFR IS NOT APPLICABLE FOR DIALYSIS PATIENTS. Specimen slightly ictericPROTHROMBIN [id number] 05:31:00 Test Item Value Reference Range Comments PROTIME (BEAKER) (test llgo=925) 21.1 seconds 11.7-14.7 INR (BEAKER) (test xwkd=660) 1.8 <=5.9 RECOMMENDED COUMADIN/WARFARIN INR THERAPY RANGESSTANDARD DOSE: 2.0 - 3.0 Includes: PROPHYLAXIS forvenous thrombosis, systemic embolization; TREATMENT for venous thrombosis and/or pulmonary embolus.HIGH RISK: Target INR is 2.5-3.5 for patients with mechanical heart valves.HEMOGLOBIN AND [id number] 05 :26:00 Test Item Value Reference Range Comments HEMOGLOBIN (BEAKER) (test pnzn=731) 7.4 GM/DL 11.2-15.7 HEMATOCRIT (BEAKER) (test blri=859) 23.7 % 34.1-44.9 HEMOGLOBIN AND [id number] 23:31:00 Test Item Value Reference Range Comments HEMOGLOBIN (BEAKER) (test wasp=568) 7.1 GM/DL 11.2-15.7 HEMATOCRIT (BEAKER) (test dhgz=153) 22.9 % 34.1-44.9 URINALYSIS W/ [id number] 22:47:00 Test Item Value Reference Range Comments COLOR (BEAKER) (test deuk=591) Yellow CLARITY (BEAKER) (test xxmk=613) Clear SPECIFIC GRAVITY UA (BEAKER) (test fuvu=964) 1.017 1.001-1.035 PH UA (BEAKER) (test iarh=187) 6.0 5.0-8.0 PROTEIN UA (BEAKER) (test ljvi=574) Negative Negative GLUCOSE UA (BEAKER) (test ijli=018) Negative Negative KETONES UA (BEAKER) (test bqrt=958) Negative Negative BILIRUBIN UA (BEAKER) (test exkx=259) Negative Negative BLOOD UA (BEAKER) (test rrnf=167) Trace Negative NITRITE UA (BEAKER) (test tgce=308) Positive Negative LEUKOCYTE ESTERASE UA (BEAKER) (test dnhg=744) Negative Negative UROBILINOGEN UA (BEAKER) (test jkdx=708) 0.2 mg/dL 0.2-1.0 RBC UA (BEAKER) (test jcpl=847) 1 /HPF WBC UA (BEAKER) (test iaey=257) 5 /HPF BACTERIA (BEAKER) (test nvsm=071) Rare MUCUS (BEAKER) (test ikxq=9918) Rare SQUAMOUS EPITHELIAL (BEAKER) (test mivm=857) 1 /HPF SOURCE(BEAKER) (test mgtk=9097) Urine, Voided BODY FLUID CELL COUNT WITH [id number] 20:32:00 Test Item Value Reference Range Comments APPEARANCE FLUID (BEAKER) (test ubjz=168) Slightly Hazy Clear COLOR FLUID (BEAKER) (test ykje=355) Straw Colorless, Straw RBC FLUID (BEAKER) (test fkfk=571) 230 /cu mm <=1 ADJUSTED WBC FLUID (BEAKER) (test seao=5968) 105 /cu mm <=5 LINING CELLS (BEAKER) (test xiox=3783) 5 /cu mm <=1 NEUTROPHILS FLUID (BEAKER) (test izpi=8674) 11 % LYMPHS FLUID (BEAKER) (test ngfu=780) 8 % MONO/MACROPHAGE FLUID (BEAKER) (test 81 % qhax=207) EOSINOPHILS FLUID (BEAKER) (test dfir=793) 0 % BASO FLUID (BEAKER) (test nzgh=100) 0 % CONTAINER BODY FLUID (BEAKER) (test EDTA Tube tpqf=7942) HEMOGLOBIN AND [id number] 17:45:00 Test Item Value Reference Range Comments HEMOGLOBIN (BEAKER) (test tlrv=578) 7.0 GM/DL 11.2-15.7 HEMATOCRIT (BEAKER) (test euxn=992) 22.5 % 34.1-44.9 ALBUMIN, BODY [id number] 17:14:00 Test Item Value Reference Range Comments ALBUMIN FLUID (BEAKER) (test dtag=037) < gm/dL Reference Range: No Normals Assay performance has not been validated for this type of specimen.PROTEIN, BODY [id number] 17:14:00 Test Item Value Reference Range Comments PROTEIN FLUID (BEAKER) (test jnem=691) < g/dL Absence of reference range indicates that normals have not been defined.Assay performance has not been validated for this type of specimen.TRIGLYCERIDES, BODY [id number] 17:10:00 Test Item Value Reference Range Comments TRIGLYCERIDES FLUID (BEAKER) (test sdfo=557) 12 mg/dL Reference Range: No Normals Assay performance has not been validated for this type of specimen.HEMOGLOBIN AND [id number] 13:36:00 Test Item Value Reference Range Comments HEMOGLOBIN (BEAKER) (test nlgn=414) 7.0 GM/DL 11.2-15.7 HEMATOCRIT (BEAKER) (test xyet=375) 22.5 % 34.1-44.9 CBC W/PLT COUNT & AUTO [id number] 09:05:00 Test Item Value Reference Range Comments WHITE BLOOD CELL COUNT (BEAKER) (test edex=861) 6.2 K/ L 3.5-10.5 RED BLOOD CELL COUNT (BEAKER) (test oatt=441) 3.12 M/ L 3.93-5.22 HEMOGLOBIN (BEAKER) (test qfii=686) 7.7 GM/DL 11.2-15.7 HEMATOCRIT (BEAKER) (test xnyt=841) 25.4 % 34.1-44.9 MEAN CORPUSCULAR VOLUME (BEAKER) (test lrkw=309) 81.4 fL 79.4-94.8 MEAN CORPUSCULAR HEMOGLOBIN (BEAKER) (test 24.7 pg 25.6-32.2 kxij=400) MEAN CORPUSCULAR HEMOGLOBIN CONC (BEAKER) (test 30.3 GM/DL 32.2-35.5 rwuz=503) RED CELL DISTRIBUTION WIDTH (BEAKER) (test 21.4 % 11.7-14.4 llgp=622) PLATELET COUNT (BEAKER) (test dwqf=330) 90 K/CU MM 150-450 MEAN PLATELET VOLUME (BEAKER) (test zpsx=199) 10.1 fL 9.4-12.3 NUCLEATED RED BLOOD CELLS (BEAKER) (test 0 /100 WBC 0-0 lexq=816) NEUTROPHILS RELATIVE PERCENT (BEAKER) (test 58 % dnyc=491) LYMPHOCYTES RELATIVE PERCENT (BEAKER) (test 27 % ryth=264) MONOCYTES RELATIVE PERCENT (BEAKER) (test 13 % ldkl=930) EOSINOPHILS RELATIVE PERCENT (BEAKER) (test 1 % fucc=228) BASOPHILS RELATIVE PERCENT (BEAKER) (test 1 % olly=009) NEUTROPHILS ABSOLUTE COUNT (BEAKER) (test 3.57 K/ L 1.56-6.13 nvfx=615) LYMPHOCYTES ABSOLUTE COUNT (BEAKER) (test 1.69 K/ L 1.18-3.74 rzmp=836) MONOCYTES ABSOLUTE COUNT (BEAKER) (test gpaw=962) 0.79 K/ L 0.24-0.36 EOSINOPHILS ABSOLUTE COUNT (BEAKER) (test 0.06 K/ L 0.04-0.36 ywfq=633) BASOPHILS ABSOLUTE COUNT (BEAKER) (test vbma=107) 0.04 K/ L 0.01-0.08 IMMATURE GRANULOCYTES-RELATIVE PERCENT (BEAKER) 1 % 0-1 (test cbqq=1826) (MANUAL DIFFERENTIAL)2016-09-01 09:05:00 Test Item Value Reference Range Comments TOTAL COUNTED (BEAKER) (test wznr=2499) WBC MORPHOLOGY (BEAKER) (test cjba=404) Normal PLT MORPHOLOGY (BEAKER) (test ngby=669) Normal HYPOCHROMIA (BEAKER) (test lwov=243) 1+ few POLYCHROMATOPHILLIC RBCS(BEAKER) (test jjpo=426) 1+ few TARGET CELLS (BEAKER) (test ysai=576) 1+ few TEAR DROP CELLS (BEAKER) (test wcfd=734) 1+ few [id number] 07:47:00 Test Item Value Reference Range Comments FERRITIN (BEAKER) (test tdjg=910) 17 ng/mL 5-275 Effective 12/24/2013: Reference Range ChangeNew: Male 5-275 Previous: Male 22-322 Female 5-275 Female 10-291ALPHA FETOPROTEIN (AFP), TUMOR [id number] 07:47:00 Test Item Value Reference Range Comments ALPHA-FETOPROTEIN (BEAKER) (test evon=1911) 3.0 ng/mL <10.0 Effective 12/24/2013: Reference Range ChangeNew: <10.0 Previous: 0.0- 8.0IRON, TIBC, % SAT. (WITHOUT FERRITIN)2016-09-01 07:34:00 Test Item Value Reference Range Comments IRON (BEAKER) (test qtll=113) 25 ug/dL 40-160 TOTAL IRON BINDING CAPACITY (BEAKER) (test 276 ug/dL 250-450 cfed=246) IRON % SATURATION (2) (BEAKER) (test mduz=4215) 9 % 20-55 LACTIC ACID, VENOUS, WHOLE [id number] 07:10:00 Test Item Value Reference Range Comments LACTATE BLOOD VENOUS (2) 3.2 mmol/L 0.5-2.2 Specimen slightly hemolyzed (BEAKER) (test ffwn=4727) Effective 06/10/2015: Units/Reference Range ChangeNew: 0.5-2.2 mmol/L Previous: 5 -20 mg/dLHEMOGLOBIN AND [id number] 06:51:00 Test Item Value Reference Range Comments HEMOGLOBIN (BEAKER) (test geky=671) 7.2 GM/DL 11.2-15.7 HEMATOCRIT (BEAKER) (test voys=473) 23.3 % 34.1-44.9 HEPATITIS A [id number] 04:15:00 Test Item Value Reference Range Comments HEPATITIS A IGM ANTIBODY (BEAKER) (test Nonreactive Nonreactive kgmm=230) HEPATITIS A IGG ANTIBODY (BEAKER) (test Reactive Nonreactive vhvr=2768) CARCINOEMBRYONIC ANTIGEN (CEA)2016-09-01 04:05:00 Test Item Value Reference Range Comments CARCINOEMBRYONIC ANTIGEN (BEAKER) (test nvzi=514) 8.6 ng/mL 0.0-5.0 TSH/FREE T4 IF [id number] 04:05:00 Test Item Value Reference Range Comments THYROID STIMULATING HORMONE (BEAKER) (test 0.43 uIU/mL 0.35-4.94 nglu=775) HEPATITIS PANEL, [id number] 04:01:00 Test Item Value Reference Range Comments HEPATITIS A IGM ANTIBODY (BEAKER) (test Nonreactive Nonreactive efhz=021) HEPATITIS B CORE IGM ANTIBODY (BEAKER) (test Nonreactive Nonreactive mrtl=536) HEPATITIS C ANTIBODY (BEAKER) (test pbzo=623) Nonreactive Nonreactive HEPATITIS B SURFACE ANTIGEN (2) (BEAKER) (test Nonreactive Nonreactive lakr=2198) HEPATITIS B [id number] 04:01:00 Test Item Value Reference Range Comments HEPATITIS B CORE TOTAL ANTIBODY (BEAKER) (test Nonreactive Nonreactive drwl=155) HEPATITIS B SURFACE ANTIBODY (BEAKER) (test 24.0 mIU/mL <8.0 lsxz=335) HEPATITIS B SURFACE ANTIGEN (2) (BEAKER) (test Nonreactive Nonreactive zpbv=3124) HIV-1 ANTIGEN WITH HIV-1/2 [id number] 04:01:00 Test Item Value Reference Range Comments HIV-1 ANTIGEN WITH HIV 1\T\2 ANTIBODY (2) Nonreactive Nonreactive (BEAKER) (test wbms=8999) [id number] 03:45:00 Test Item Value Reference Range Comments AMMONIA (BEAKER) (test nziw=215) 80 mol/L 18-72 LACTIC ACID, VENOUS, WHOLE [id number] 03:45:00 Test Item Value Reference Range Comments LACTATE BLOOD VENOUS (2) 3.7 mmol/L 0.5-2.2 Specimen slightly hemolyzed (BEAKER) (test hnuw=7031) Effective 06/10/2015: Units/Reference Range ChangeNew: 0.5-2.2 mmol/L Previous: 5 -20 mg/dLCOMPREHENSIVE METABOLIC [id number] 03:35:00 Test Item Value Reference Range Comments TOTAL PROTEIN (BEAKER) 7.0 gm/dL 6.0-8.3 (test fwdd=297) ALBUMIN (BEAKER) (test 2.4 g/dL 3.5-5.0 eqcg=4343) ALKALINE PHOSPHATASE 123 U/L 40-150 (BEAKER) (test ohui=554) BILIRUBIN TOTAL (BEAKER) 1.8 mg/dL 0.2-1.2 (test bmuh=561) SODIUM (BEAKER) (test 139 meq/L 136-145 aroz=396) POTASSIUM (BEAKER) (test 4.9 meq/L 3.5-5.1 ccsl=961) CHLORIDE (BEAKER) (test 109 meq/L 98-107 avhn=395) CO2 (BEAKER) (test 21 meq/L 22-29 hnaz=155) BLOOD UREA NITROGEN 11 mg/dL 7-21 (BEAKER) (test emmd=583) CREATININE (BEAKER) (test 0.72 mg/dL 0.57-1.25 xnov=006) GLUCOSE RANDOM (BEAKER) 90 mg/dL 70-105 (test jzje=079) CALCIUM (BEAKER) (test 7.1 mg/dL 8.4-10.2 trlb=010) AST (SGOT) (BEAKER) (test 74 U/L 5-34 zfiv=021) ALT (SGPT) (BEAKER) (test 21 U/L 6-55 ukib=779) EGFR (BEAKER) (test 84 mL/min/1.73 sq m ESTIMATED GFR IS NOT onth=2476) ACCURATE CREATININE CLEARANCE IN PREDICTING GLOMERULAR FILTRATION RATE. ESTIMATED GFR IS NOT APPLICABLE FOR DIALYSIS PATIENTS. [id number] 03:28:00 Test Item Value Reference Range Comments PHOSPHORUS (BEAKER) (test kvby=407) 3.8 mg/dL 2.3-4.7 [id number] 03:28:00 Test Item Value Reference Range Comments MAGNESIUM (BEAKER) (test sfnq=219) 1.5 mg/dL 1.6-2.6 PROTHROMBIN TIME/[id number] 03:18:00 Test Item Value Reference Range Comments PROTIME (BEAKER) (test pshz=381) 22.6 seconds 11.7-14.7 INR (BEAKER) (test aife=411) 2.0 <=5.9 RECOMMENDED COUMADIN/WARFARIN INR THERAPY RANGESSTANDARD DOSE: 2.0 - 3.0 Includes: PROPHYLAXIS forvenous thrombosis, systemic embolization; TREATMENT for venous thrombosis and/or pulmonary embolus.HIGH RISK: Target INR is 2.5-3.5 for patients with mechanical heart valves.
--- OUTSIDE RECORDS SUMMARY | 2018-01-26 18:54 | XMS REPORT | Clinical Summary ---
:1960 [facility] Address [address] [place] [address] Care Team Providers Name Role Phone SivakumarRaymond Primary Care Provider Allergies No Known Allergies Medications Medication Sig Dispensed Refills Start Date End Date Status escitalopram oxalate Take 10 mg by 0 Active (LEXAPRO) 10 MG tablet mouth daily. loratadine (CLARITIN) Take 10 mg by 0 Active 10 mg tablet mouth daily. carvedilol (COREG) Take 1 tablet 60 tablet 1 09/04/2016 Active 3.125 MG tablet (3.125 mg total) by mouth 2 (two) times daily. folic acid (FOLVITE) 1 Take 1 tablet 30 tablet 1 09/04/2016 Active MG tablet (1 mg total) by mouth daily. lactulose (CHRONULAC) Take 15 mLs (10 1350 mL 1 09/04/2016 Active 20 gram/30 mL solution g total) by mouth 3 (three) times daily. thiamine (VITAMIN B-1) Take 1 tablet 30 tablet 1 09/04/2016 Active 50 MG tablet (50 mg total) by mouth daily. pantoprazole Take 1 tablet 60 tablet 1 09/04/2016 Active (PROTONIX) 40 MG (40 mg total) tablet by mouth 2 (two) times daily. furosemide (LASIX) 40 Take 1 tablet 30 tablet 1 09/04/2016 09/04/2017 MG tablet (40 mg total) by mouth daily. spironolactone Take 1 tablet 30 tablet 1 09/04/2016 09/04/2017 (ALDACTONE) 100 MG (100 mg total) tablet by mouth daily. potassium chloride Take 2 tablets 60 tablet 1 09/04/2016 09/04/2017 (KLOR-CON) 10 MEQ CR (20 mEq total) tablet by mouth daily. Active Problems Problem Noted Date Acute GI bleeding 09/01/2016 Acute blood loss anemia 09/01/2016 Alcohol withdrawal syndrome without complication 09/01/2016 Cirrhosis of liver with ascites 09/01/2016 Coagulopathy 09/01/2016 Thrombocytopenia 09/01/2016 Social History Tobacco Use Types Packs/Day Years Used Date Former Smoker Alcohol Use Drinks/Week oz/Week Comments Yes 2 Glasses of wine 1.2 Sex Assigned at Date Recorded Not on file Job Start Date Occupation Industry Not on file Not on file Not on file Travel History Travel Start Travel End No recent travel history available. Last Filed Vital Signs Not on file Plan of Treatment Not on file Results Not on fileafter 01/25/2017 Advance Directives For more information, please contact:[address] [phone] Code Status Date Activated Date Inactivated Comments Full Code 09/01/2016 10:09 AM 09/04/2016 3:57 PM This code status was determined by: Patient
== END 2018-01-26 19:44 | disposition short-term general hospital (02) ==
LOC: ER 11:36
DX: S72.012A Unspecified intracapsular fracture of left femur, initial encounter for closed fracture (principal); D64.9 Anemia, unspecified; D69.6 Thrombocytopenia, unspecified; F10.239 Alcohol dependence with withdrawal, unspecified; W01.0XXA Fall on same level from slipping, tripping and stumbling without subsequent striking against object, initial encounter; Y93.01 Activity, walking, marching and hiking; Y92.89 Other specified places as the place of occurrence of the external cause; I10 Essential (primary) hypertension
CPT/HCPCS: 36415; 51702; 71045; 80053; 85025; 85610; 86850; 86900; 86901; 93005; 99285; J2405; J3010; J3360; J7030

== ENCOUNTER 2018-02-07 12:42 | Emergency (ER) | payer SELFPAY ==
--- OUTSIDE RECORDS SUMMARY | 2018-02-07 12:46 | XMS REPORT | Clinical Summary ---
:1960 [facility] Address [address] [place] [address] Care Team Providers Name Role Phone SivakumarRaymond [...] Not on file Results Not on fileafter 02/06/2017 Advance Directives For more information, please contact:[address] [phone] Code Status Date Activated Date Inactivated Comments Full Code 09/01/2016 10:09 AM 09/04/2016 3:57 PM This code status was determined by: Patient
--- OUTSIDE RECORDS SUMMARY | 2018-02-07 12:47 | XMS REPORT ---
:1960 [facility] Address [address] [place] [address] Care Team Providers Name Role Phone STEPHANIE MAYA Unavailable Unavailable Problems This patient has no known problems. Allergies, Adverse Reactions, Alerts This patient has no known allergies or adverse reactions. Medications This patient has no known medications. Results Test Description Test Time Test Comments Text Results Atomic Results Result Comments BLOOD CULTURE 2016-09-06 11:00:00 Test Item Value Reference Range Comments CULTURE (BEAKER) (test twqo=9297) No growth in 5 days BLOOD [id number] 11:00:00 Test Item Value Reference Range Comments CULTURE (BEAKER) (test ixdq=0575) No growth in 5 days CBC W/PLT COUNT & AUTO [id number] 08:38:00 Test Item Value Reference Range Comments WHITE BLOOD CELL COUNT (BEAKER) (test zdgl=554) 9.6 K/ L 3.5-10.5 RED BLOOD CELL COUNT (BEAKER) (test ntib=285) 3.00 M/ L 3.93-5.22 HEMOGLOBIN (BEAKER) (test sfwj=730) 7.4 GM/DL 11.2-15.7 HEMATOCRIT (BEAKER) (test ukuv=582) 24.4 % 34.1-44.9 MEAN CORPUSCULAR VOLUME (BEAKER) (test cgjp=832) 81.3 fL 79.4-94.8 MEAN CORPUSCULAR HEMOGLOBIN (BEAKER) (test 24.7 pg 25.6-32.2 lkww=077) MEAN CORPUSCULAR HEMOGLOBIN CONC (BEAKER) (test 30.3 GM/DL 32.2-35.5 wooy=843) RED CELL DISTRIBUTION WIDTH (BEAKER) (test 22.5 % 11.7-14.4 xwre=742) PLATELET COUNT (BEAKER) (test fmgs=487) 91 K/CU MM 150-450 MEAN PLATELET VOLUME (BEAKER) (test hxuq=281) 10.3 fL 9.4-12.3 NUCLEATED RED BLOOD CELLS (BEAKER) (test 0 /100 WBC 0-0 ghdq=692) NEUTROPHILS RELATIVE PERCENT (BEAKER) (test 71 % fkbb=807) LYMPHOCYTES RELATIVE PERCENT (BEAKER) (test 15 % mfke=661) MONOCYTES RELATIVE PERCENT (BEAKER) (test 10 % nlhw=059) EOSINOPHILS RELATIVE PERCENT (BEAKER) (test 4 % ajcc=076) BASOPHILS RELATIVE PERCENT (BEAKER) (test 1 % lnkh=483) NEUTROPHILS ABSOLUTE COUNT (BEAKER) (test 6.82 K/ L 1.56-6.13 swug=370) LYMPHOCYTES ABSOLUTE COUNT (BEAKER) (test 1.39 K/ L 1.18-3.74 sgij=314) MONOCYTES ABSOLUTE COUNT (BEAKER) (test akae=992) 0.92 K/ L 0.24-0.36 EOSINOPHILS ABSOLUTE COUNT (BEAKER) (test 0.37 K/ L 0.04-0.36 ailb=886) BASOPHILS ABSOLUTE COUNT (BEAKER) (test umuw=604) 0.06 K/ L 0.01-0.08 IMMATURE GRANULOCYTES-RELATIVE PERCENT (BEAKER) 1 % 0-1 (test gqlf=4121) COMPREHENSIVE METABOLIC [id number] 07:11:00 Test Item Value Reference Range Comments TOTAL PROTEIN (BEAKER) 6.5 gm/dL 6.0-8.3 (test wxco=524) ALBUMIN (BEAKER) (test 2.2 g/dL 3.5-5.0 ivcw=0132) ALKALINE PHOSPHATASE 111 U/L 40-150 (BEAKER) (test bzfl=139) BILIRUBIN TOTAL (BEAKER) 3.2 mg/dL 0.2-1.2 (test notp=076) SODIUM (BEAKER) (test 139 meq/L 136-145 hwrk=829) POTASSIUM (BEAKER) (test 3.2 meq/L 3.5-5.1 vsjd=594) CHLORIDE (BEAKER) (test 105 meq/L 98-107 rhrv=180) CO2 (BEAKER) (test 27 meq/L 22-29 srau=983) BLOOD UREA NITROGEN 4 mg/dL 7-21 (BEAKER) (test ybqv=377) CREATININE (BEAKER) (test 0.63 mg/dL 0.57-1.25 dwkm=900) GLUCOSE RANDOM (BEAKER) 107 mg/dL 70-105 (test phxs=550) CALCIUM (BEAKER) (test 7.7 mg/dL 8.4-10.2 azhp=015) AST (SGOT) (BEAKER) (test 55 U/L 5-34 rjkp=647) ALT (SGPT) (BEAKER) (test 17 U/L 6-55 rrua=855) EGFR (BEAKER) (test 98 mL/min/1.73 sq m ESTIMATED GFR IS NOT hvca=4659) ACCURATE CREATININE CLEARANCE IN PREDICTING GLOMERULAR FILTRATION RATE. ESTIMATED GFR IS NOT APPLICABLE FOR DIALYSIS PATIENTS. Specimen slightly ictericPROTHROMBIN [id number] 06:07:00 Test Item Value Reference Range Comments PROTIME (BEAKER) (test rvow=350) 23.2 seconds 11.7-14.7 INR (BEAKER) (test tmhk=228) 2.1 <=5.9 RECOMMENDED COUMADIN/WARFARIN INR THERAPY RANGESSTANDARD DOSE: 2.0 - 3.0 Includes: PROPHYLAXIS forvenous thrombosis, systemic embolization; TREATMENT for venous thrombosis and/or pulmonary embolus.HIGH RISK: Target INR is 2.5-3.5 for patients with mechanical heart valves.BODY FLUID CULTURE + GRAM [id number] 00:14:00 Test Item Value Reference Range Comments CULTURE (BEAKER) (test dkzx=4943) No growth GRAM STAIN RESULT (BEAKER) (test No WBCs npnr=1455) GRAM STAIN RESULT (BEAKER) (test No organisms seen yykl=90765) HEMOGLOBIN AND [id number] 23:16:00 Test Item Value Reference Range Comments HEMOGLOBIN (BEAKER) (test ibrj=581) 7.4 GM/DL 11.2-15.7 HEMATOCRIT (BEAKER) (test aihc=386) 24.6 % 34.1-44.9 HEMOGLOBIN AND [id number] 10:55:00 Test Item Value Reference Range Comments HEMOGLOBIN (BEAKER) (test zfol=181) 8.2 GM/DL 11.2-15.7 HEMATOCRIT (BEAKER) (test dtjj=010) 27.2 % 34.1-44.9 CBC W/PLT COUNT & AUTO [id number] 09:09:00 Test Item Value Reference Range Comments WHITE BLOOD CELL COUNT 7.7 K/ L 3.5-10.5 (BEAKER) (test scvj=998) RED BLOOD CELL COUNT (BEAKER) 3.02 M/ L 3.93-5.22 (test rmht=469) HEMOGLOBIN (BEAKER) (test 7.4 GM/DL 11.2-15.7 rufw=248) HEMATOCRIT (BEAKER) (test 24.0 % 34.1-44.9 jyon=967) MEAN CORPUSCULAR VOLUME 79.5 fL 79.4-94.8 (BEAKER) (test xdmt=911) MEAN CORPUSCULAR HEMOGLOBIN 24.5 pg 25.6-32.2 (BEAKER) (test ccpt=963) MEAN CORPUSCULAR HEMOGLOBIN 30.8 GM/DL 32.2-35.5 CONC (BEAKER) (test uzij=695) RED CELL DISTRIBUTION WIDTH 22.2 % 11.7-14.4 (BEAKER) (test jfsl=337) PLATELET COUNT (BEAKER) (test 77 K/CU MM 150-450 flve=419) MEAN PLATELET VOLUME (BEAKER) fL 9.4-12.3 Unable to report due to (test qkxp=315) abnormal Platelet population distribution. NUCLEATED RED BLOOD CELLS 0 /100 WBC 0-0 (BEAKER) (test lggj=239) NEUTROPHILS RELATIVE PERCENT 69 % (BEAKER) (test lulv=311) LYMPHOCYTES RELATIVE PERCENT 15 % (BEAKER) (test npfi=104) MONOCYTES RELATIVE PERCENT 11 % (BEAKER) (test bqkt=613) EOSINOPHILS RELATIVE PERCENT 4 % (BEAKER) (test udxs=776) BASOPHILS RELATIVE PERCENT 1 % (BEAKER) (test lram=103) NEUTROPHILS ABSOLUTE COUNT 5.26 K/ L 1.56-6.13 (BEAKER) (test mqiz=266) LYMPHOCYTES ABSOLUTE COUNT 1.16 K/ L 1.18-3.74 (BEAKER) (test jaxg=014) MONOCYTES ABSOLUTE COUNT 0.84 K/ L 0.24-0.36 (BEAKER) (test ytae=470) EOSINOPHILS ABSOLUTE COUNT 0.30 K/ L 0.04-0.36 (BEAKER) (test zsjh=197) BASOPHILS ABSOLUTE COUNT 0.06 K/ L 0.01-0.08 (BEAKER) (test popd=612) IMMATURE GRANULOCYTES-RELATIVE 1 % 0-1 PERCENT (BEAKER) (test wbwk=5765) COMPREHENSIVE METABOLIC [id number] 07:08:00 Test Item Value Reference Range Comments TOTAL PROTEIN (BEAKER) 6.8 gm/dL 6.0-8.3 (test cewo=465) ALBUMIN (BEAKER) (test 2.3 g/dL 3.5-5.0 gbrs=5199) ALKALINE PHOSPHATASE 116 U/L 40-150 (BEAKER) (test kgyq=155) BILIRUBIN TOTAL (BEAKER) 3.3 mg/dL 0.2-1.2 (test inmb=496) SODIUM (BEAKER) (test 137 meq/L 136-145 pund=828) POTASSIUM (BEAKER) (test 3.0 meq/L 3.5-5.1 qvrn=584) CHLORIDE (BEAKER) (test 103 meq/L 98-107 koem=378) CO2 (BEAKER) (test 27 meq/L 22-29 azys=204) BLOOD UREA NITROGEN 5 mg/dL 7-21 (BEAKER) (test sqng=749) CREATININE (BEAKER) (test 0.61 mg/dL 0.57-1.25 bwlm=203) GLUCOSE RANDOM (BEAKER) 112 mg/dL 70-105 (test doen=044) CALCIUM (BEAKER) (test 7.5 mg/dL 8.4-10.2 kxtq=873) AST (SGOT) (BEAKER) (test 55 U/L 5-34 eexe=559) ALT (SGPT) (BEAKER) (test 17 U/L 6-55 taem=756) EGFR (BEAKER) (test 102 mL/min/1.73 sq ESTIMATED GFR IS NOT spfh=3171) m ACCURATE CREATININE CLEARANCE IN PREDICTING GLOMERULAR FILTRATION RATE. ESTIMATED GFR IS NOT APPLICABLE FOR DIALYSIS PATIENTS. Specimen slightly ictericPROTHROMBIN [id number] 06:40:00 Test Item Value Reference Range Comments PROTIME (BEAKER) (test cjja=908) 23.1 seconds 11.7-14.7 INR (BEAKER) (test bmip=110) 2.0 <=5.9 RECOMMENDED COUMADIN/WARFARIN INR THERAPY RANGESSTANDARD DOSE: 2.0 - 3.0 Includes: PROPHYLAXIS forvenous thrombosis, systemic embolization; TREATMENT for venous thrombosis and/or pulmonary embolus.HIGH RISK: Target INR is 2.5-3.5 for patients with mechanical heart valves.HEMOGLOBIN AND [id number] 21 :22:00 Test Item Value Reference Range Comments HEMOGLOBIN (BEAKER) (test smyh=660) 8.0 GM/DL 11.2-15.7 HEMATOCRIT (BEAKER) (test zdig=164) 26.2 % 34.1-44.9 ANTI-NUCLEAR ANTIBODY (FLORES)2016-09-02 13:41:00 Test Item Value Reference Range Comments ANTI-NUCLEAR ANTIBODY (FLORES) (BEAKER) (test Negative Negative zosk=803) CBC W/PLT COUNT & AUTO [id number] 06:28:00 Test Item Value Reference Range Comments WHITE BLOOD CELL COUNT (BEAKER) (test aqeh=052) 5.6 K/ L 3.5-10.5 RED BLOOD CELL COUNT (BEAKER) (test qsla=835) 2.98 M/ L 3.93-5.22 HEMOGLOBIN (BEAKER) (test quoc=031) 7.4 GM/DL 11.2-15.7 HEMATOCRIT (BEAKER) (test arib=492) 23.7 % 34.1-44.9 MEAN CORPUSCULAR VOLUME (BEAKER) (test hnvk=666) 79.5 fL 79.4-94.8 MEAN CORPUSCULAR HEMOGLOBIN (BEAKER) (test 24.8 pg 25.6-32.2 mevg=083) MEAN CORPUSCULAR HEMOGLOBIN CONC (BEAKER) (test 31.2 GM/DL 32.2-35.5 lmwj=920) RED CELL DISTRIBUTION WIDTH (BEAKER) (test 21.3 % 11.7-14.4 cdsg=940) PLATELET COUNT (BEAKER) (test xleg=734) 77 K/CU MM 150-450 MEAN PLATELET VOLUME (BEAKER) (test uwhh=968) 10.4 fL 9.4-12.3 NUCLEATED RED BLOOD CELLS (BEAKER) (test 0 /100 WBC 0-0 psys=929) NEUTROPHILS RELATIVE PERCENT (BEAKER) (test 63 % mksz=202) LYMPHOCYTES RELATIVE PERCENT (BEAKER) (test 21 % qkit=188) MONOCYTES RELATIVE PERCENT (BEAKER) (test 12 % qszm=629) EOSINOPHILS RELATIVE PERCENT (BEAKER) (test 3 % rjub=001) BASOPHILS RELATIVE PERCENT (BEAKER) (test 1 % bxog=973) NEUTROPHILS ABSOLUTE COUNT (BEAKER) (test 3.53 K/ L 1.56-6.13 qnav=666) LYMPHOCYTES ABSOLUTE COUNT (BEAKER) (test 1.15 K/ L 1.18-3.74 aaid=381) MONOCYTES ABSOLUTE COUNT (BEAKER) (test rigp=364) 0.68 K/ L 0.24-0.36 EOSINOPHILS ABSOLUTE COUNT (BEAKER) (test 0.17 K/ L 0.04-0.36 echc=999) BASOPHILS ABSOLUTE COUNT (BEAKER) (test sqqy=488) 0.05 K/ L 0.01-0.08 IMMATURE GRANULOCYTES-RELATIVE PERCENT (BEAKER) 1 % 0-1 (test rrgp=5455) COMPREHENSIVE METABOLIC [id number] 05:34:00 Test Item Value Reference Range Comments TOTAL PROTEIN (BEAKER) 7.0 gm/dL 6.0-8.3 (test bsip=849) ALBUMIN (BEAKER) (test 2.4 g/dL 3.5-5.0 dsdm=0598) ALKALINE PHOSPHATASE 120 U/L 40-150 (BEAKER) (test zrxt=844) BILIRUBIN TOTAL (BEAKER) 2.7 mg/dL 0.2-1.2 (test lvgr=279) SODIUM (BEAKER) (test 137 meq/L 136-145 aqog=697) POTASSIUM (BEAKER) (test 3.7 meq/L 3.5-5.1 mhii=505) CHLORIDE (BEAKER) (test 106 meq/L 98-107 fkii=383) CO2 (BEAKER) (test 25 meq/L 22-29 swwy=474) BLOOD UREA NITROGEN 9 mg/dL 7-21 (BEAKER) (test xlqt=108) CREATININE (BEAKER) (test 0.61 mg/dL 0.57-1.25 tvfs=800) GLUCOSE RANDOM (BEAKER) 135 mg/dL 70-105 (test dqng=454) CALCIUM (BEAKER) (test 7.3 mg/dL 8.4-10.2 izab=321) AST (SGOT) (BEAKER) (test 67 U/L 5-34 bslz=505) ALT (SGPT) (BEAKER) (test 21 U/L 6-55 mnkp=984) EGFR (BEAKER) (test 102 mL/min/1.73 sq ESTIMATED GFR IS NOT wjrt=2849) m ACCURATE CREATININE CLEARANCE IN PREDICTING GLOMERULAR FILTRATION RATE. ESTIMATED GFR IS NOT APPLICABLE FOR DIALYSIS PATIENTS. Specimen slightly ictericPROTHROMBIN TIME/[id number] 05:31:00 Test Item Value Reference Range Comments PROTIME (BEAKER) (test evxs=635) 21.1 seconds 11.7-14.7 INR (BEAKER) (test wtjb=094) 1.8 <=5.9 RECOMMENDED COUMADIN/WARFARIN INR THERAPY RANGESSTANDARD DOSE: 2.0 - 3.0 Includes: PROPHYLAXIS forvenous thrombosis, systemic embolization; TREATMENT for venous thrombosis and/or pulmonary embolus.HIGH RISK: Target INR is 2.5-3.5 for patients with mechanical heart valves.HEMOGLOBIN AND [id number] 05 :26:00 Test Item Value Reference Range Comments HEMOGLOBIN (BEAKER) (test mjhe=714) 7.4 GM/DL 11.2-15.7 HEMATOCRIT (BEAKER) (test ljti=532) 23.7 % 34.1-44.9 HEMOGLOBIN AND [id number] 23:31:00 Test Item Value Reference Range Comments HEMOGLOBIN (BEAKER) (test gdcv=769) 7.1 GM/DL 11.2-15.7 HEMATOCRIT (BEAKER) (test qwjs=363) 22.9 % 34.1-44.9 URINALYSIS W/ [id number] 22:47:00 Test Item Value Reference Range Comments COLOR (BEAKER) (test ofbj=235) Yellow CLARITY (BEAKER) (test pfso=591) Clear SPECIFIC GRAVITY UA (BEAKER) (test xank=476) 1.017 1.001-1.035 PH UA (BEAKER) (test rcrh=180) 6.0 5.0-8.0 PROTEIN UA (BEAKER) (test unug=818) Negative Negative GLUCOSE UA (BEAKER) (test dmyw=242) Negative Negative KETONES UA (BEAKER) (test dpmt=856) Negative Negative BILIRUBIN UA (BEAKER) (test ysrl=702) Negative Negative BLOOD UA (BEAKER) (test jzzy=199) Trace Negative NITRITE UA (BEAKER) (test xqkg=740) Positive Negative LEUKOCYTE ESTERASE UA (BEAKER) (test zwap=379) Negative Negative UROBILINOGEN UA (BEAKER) (test dnue=507) 0.2 mg/dL 0.2-1.0 RBC UA (BEAKER) (test paca=406) 1 /HPF WBC UA (BEAKER) (test ukfh=989) 5 /HPF BACTERIA (BEAKER) (test lyje=517) Rare MUCUS (BEAKER) (test btny=3883) Rare SQUAMOUS EPITHELIAL (BEAKER) (test eknd=747) 1 /HPF SOURCE(BEAKER) (test wxbs=8823) Urine, Voided BODY FLUID CELL COUNT WITH [id number] 20:32:00 Test Item Value Reference Range Comments APPEARANCE FLUID (BEAKER) (test lmhs=326) Slightly Hazy Clear COLOR FLUID (BEAKER) (test qpos=422) Straw Colorless, Straw RBC FLUID (BEAKER) (test wmbj=719) 230 /cu mm <=1 ADJUSTED WBC FLUID (BEAKER) (test xckb=7047) 105 /cu mm <=5 LINING CELLS (BEAKER) (test wcqc=5024) 5 /cu mm <=1 NEUTROPHILS FLUID (BEAKER) (test flqc=4506) 11 % LYMPHS FLUID (BEAKER) (test vtwn=996) 8 % MONO/MACROPHAGE FLUID (BEAKER) (test 81 % lcro=196) EOSINOPHILS FLUID (BEAKER) (test kqkl=032) 0 % BASO FLUID (BEAKER) (test vcrj=598) 0 % CONTAINER BODY FLUID (BEAKER) (test EDTA Tube suot=1095) HEMOGLOBIN AND [id number] 17:45:00 Test Item Value Reference Range Comments HEMOGLOBIN (BEAKER) (test pypv=924) 7.0 GM/DL 11.2-15.7 HEMATOCRIT (BEAKER) (test yaqt=415) 22.5 % 34.1-44.9 ALBUMIN, BODY [id number] 17:14:00 Test Item Value Reference Range Comments ALBUMIN FLUID (BEAKER) (test qogv=616) < gm/dL Reference Range: No Normals Assay performance has not been validated for this type of specimen.PROTEIN, BODY [id number] 17:14:00 Test Item Value Reference Range Comments PROTEIN FLUID (BEAKER) (test flvo=125) < g/dL Absence of reference range indicates that normals have not been defined.Assay performance has not been validated for this type of specimen.TRIGLYCERIDES, BODY [id number] 17:10:00 Test Item Value Reference Range Comments TRIGLYCERIDES FLUID (BEAKER) (test ykgn=364) 12 mg/dL Reference Range: No Normals Assay performance has not been validated for this type of specimen.HEMOGLOBIN AND [id number] 13:36:00 Test Item Value Reference Range Comments HEMOGLOBIN (BEAKER) (test hmox=945) 7.0 GM/DL 11.2-15.7 HEMATOCRIT (BEAKER) (test ckvh=291) 22.5 % 34.1-44.9 CBC W/PLT COUNT & AUTO [id number] 09:05:00 Test Item Value Reference Range Comments WHITE BLOOD CELL COUNT (BEAKER) (test lihq=876) 6.2 K/ L 3.5-10.5 RED BLOOD CELL COUNT (BEAKER) (test cyus=220) 3.12 M/ L 3.93-5.22 HEMOGLOBIN (BEAKER) (test qncc=431) 7.7 GM/DL 11.2-15.7 HEMATOCRIT (BEAKER) (test mott=259) 25.4 % 34.1-44.9 MEAN CORPUSCULAR VOLUME (BEAKER) (test sszy=136) 81.4 fL 79.4-94.8 MEAN CORPUSCULAR HEMOGLOBIN (BEAKER) (test 24.7 pg 25.6-32.2 xvuv=503) MEAN CORPUSCULAR HEMOGLOBIN CONC (BEAKER) (test 30.3 GM/DL 32.2-35.5 mszl=808) RED CELL DISTRIBUTION WIDTH (BEAKER) (test 21.4 % 11.7-14.4 yliy=065) PLATELET COUNT (BEAKER) (test jbnt=673) 90 K/CU MM 150-450 MEAN PLATELET VOLUME (BEAKER) (test escu=613) 10.1 fL 9.4-12.3 NUCLEATED RED BLOOD CELLS (BEAKER) (test 0 /100 WBC 0-0 vsaa=982) NEUTROPHILS RELATIVE PERCENT (BEAKER) (test 58 % hslv=748) LYMPHOCYTES RELATIVE PERCENT (BEAKER) (test 27 % ntfw=749) MONOCYTES RELATIVE PERCENT (BEAKER) (test 13 % yyzr=303) EOSINOPHILS RELATIVE PERCENT (BEAKER) (test 1 % xbpb=554) BASOPHILS RELATIVE PERCENT (BEAKER) (test 1 % uaeb=906) NEUTROPHILS ABSOLUTE COUNT (BEAKER) (test 3.57 K/ L 1.56-6.13 zbsd=468) LYMPHOCYTES ABSOLUTE COUNT (BEAKER) (test 1.69 K/ L 1.18-3.74 emgi=183) MONOCYTES ABSOLUTE COUNT (BEAKER) (test ehkq=103) 0.79 K/ L 0.24-0.36 EOSINOPHILS ABSOLUTE COUNT (BEAKER) (test 0.06 K/ L 0.04-0.36 qtla=482) BASOPHILS ABSOLUTE COUNT (BEAKER) (test xmap=324) 0.04 K/ L 0.01-0.08 IMMATURE GRANULOCYTES-RELATIVE PERCENT (BEAKER) 1 % 0-1 (test isyn=8176) (MANUAL DIFFERENTIAL)2016-09-01 09:05:00 Test Item Value Reference Range Comments TOTAL COUNTED (BEAKER) (test zbju=5622) WBC MORPHOLOGY (BEAKER) (test axws=022) Normal PLT MORPHOLOGY (BEAKER) (test wowp=246) Normal HYPOCHROMIA (BEAKER) (test qlwh=729) 1+ few POLYCHROMATOPHILLIC RBCS(BEAKER) (test ulex=290) 1+ few TARGET CELLS (BEAKER) (test elol=209) 1+ few TEAR DROP CELLS (BEAKER) (test xpxl=033) 1+ few [id number] 07:47:00 Test Item Value Reference Range Comments FERRITIN (BEAKER) (test pquq=630) 17 ng/mL 5-275 Effective 12/24/2013: Reference Range ChangeNew: Male 5-275 Previous: Male 22-322 Female 5-275 Female 10-291ALPHA FETOPROTEIN (AFP), TUMOR [id number] 07:47:00 Test Item Value Reference Range Comments ALPHA-FETOPROTEIN (BEAKER) (test keak=0674) 3.0 ng/mL <10.0 Effective 12/24/2013: Reference Range ChangeNew: <10.0 Previous: 0.0- 8.0IRON, TIBC, % SAT. (WITHOUT FERRITIN)2016-09-01 07:34:00 Test Item Value Reference Range Comments IRON (BEAKER) (test ofjs=852) 25 ug/dL 40-160 TOTAL IRON BINDING CAPACITY (BEAKER) (test 276 ug/dL 250-450 ofbr=123) IRON % SATURATION (2) (BEAKER) (test thkt=0053) 9 % 20-55 LACTIC ACID, VENOUS, WHOLE [id number] 07:10:00 Test Item Value Reference Range Comments LACTATE BLOOD VENOUS (2) 3.2 mmol/L 0.5-2.2 Specimen slightly hemolyzed (BEAKER) (test fbkm=5203) Effective 06/10/2015: Units/Reference Range ChangeNew: 0.5-2.2 mmol/L Previous: 5 -20 mg/dLHEMOGLOBIN AND [id number] 06:51:00 Test Item Value Reference Range Comments HEMOGLOBIN (BEAKER) (test aazo=582) 7.2 GM/DL 11.2-15.7 HEMATOCRIT (BEAKER) (test qudp=116) 23.3 % 34.1-44.9 HEPATITIS A [id number] 04:15:00 Test Item Value Reference Range Comments HEPATITIS A IGM ANTIBODY (BEAKER) (test Nonreactive Nonreactive jsgb=480) HEPATITIS A IGG ANTIBODY (BEAKER) (test Reactive Nonreactive rmxh=9917) CARCINOEMBRYONIC ANTIGEN (CEA)2016-09-01 04:05:00 Test Item Value Reference Range Comments CARCINOEMBRYONIC ANTIGEN (BEAKER) (test smoa=365) 8.6 ng/mL 0.0-5.0 TSH/FREE T4 IF [id number] 04:05:00 Test Item Value Reference Range Comments THYROID STIMULATING HORMONE (BEAKER) (test 0.43 uIU/mL 0.35-4.94 citd=575) HEPATITIS PANEL, [id number] 04:01:00 Test Item Value Reference Range Comments HEPATITIS A IGM ANTIBODY (BEAKER) (test Nonreactive Nonreactive bfje=026) HEPATITIS B CORE IGM ANTIBODY (BEAKER) (test Nonreactive Nonreactive xnyo=258) HEPATITIS C ANTIBODY (BEAKER) (test rilx=956) Nonreactive Nonreactive HEPATITIS B SURFACE ANTIGEN (2) (BEAKER) (test Nonreactive Nonreactive qsbg=3075) HEPATITIS B [id number] 04:01:00 Test Item Value Reference Range Comments HEPATITIS B CORE TOTAL ANTIBODY (BEAKER) (test Nonreactive Nonreactive okmm=198) HEPATITIS B SURFACE ANTIBODY (BEAKER) (test 24.0 mIU/mL <8.0 xvkr=712) HEPATITIS B SURFACE ANTIGEN (2) (BEAKER) (test Nonreactive Nonreactive iszg=6687) HIV-1 ANTIGEN WITH HIV-1/2 [id number] 04:01:00 Test Item Value Reference Range Comments HIV-1 ANTIGEN WITH HIV 1\T\2 ANTIBODY (2) Nonreactive Nonreactive (BEAKER) (test lhdz=3176) [id number] 03:45:00 Test Item Value Reference Range Comments AMMONIA (BEAKER) (test pyxl=037) 80 mol/L 18-72 LACTIC ACID, VENOUS, WHOLE [id number] 03:45:00 Test Item Value Reference Range Comments LACTATE BLOOD VENOUS (2) 3.7 mmol/L 0.5-2.2 Specimen slightly hemolyzed (BEAKER) (test bpsu=2405) Effective 06/10/2015: Units/Reference Range ChangeNew: 0.5-2.2 mmol/L Previous: 5 -20 mg/dLCOMPREHENSIVE METABOLIC [id number] 03:35:00 Test Item Value Reference Range Comments TOTAL PROTEIN (BEAKER) 7.0 gm/dL 6.0-8.3 (test nhhm=504) ALBUMIN (BEAKER) (test 2.4 g/dL 3.5-5.0 lyjd=2048) ALKALINE PHOSPHATASE 123 U/L 40-150 (BEAKER) (test jnck=050) BILIRUBIN TOTAL (BEAKER) 1.8 mg/dL 0.2-1.2 (test erjl=256) SODIUM (BEAKER) (test 139 meq/L 136-145 kanj=923) POTASSIUM (BEAKER) (test 4.9 meq/L 3.5-5.1 sbmh=991) CHLORIDE (BEAKER) (test 109 meq/L 98-107 rctr=768) CO2 (BEAKER) (test 21 meq/L 22-29 duyp=555) BLOOD UREA NITROGEN 11 mg/dL 7-21 (BEAKER) (test riqk=553) CREATININE (BEAKER) (test 0.72 mg/dL 0.57-1.25 asli=025) GLUCOSE RANDOM (BEAKER) 90 mg/dL 70-105 (test djhe=239) CALCIUM (BEAKER) (test 7.1 mg/dL 8.4-10.2 vuvs=261) AST (SGOT) (BEAKER) (test 74 U/L 5-34 mglq=797) ALT (SGPT) (BEAKER) (test 21 U/L 6-55 mude=727) EGFR (BEAKER) (test 84 mL/min/1.73 sq m ESTIMATED GFR IS NOT ezfz=9834) ACCURATE CREATININE CLEARANCE IN PREDICTING GLOMERULAR FILTRATION RATE. ESTIMATED GFR IS NOT APPLICABLE FOR DIALYSIS PATIENTS. [id number] 03:28:00 Test Item Value Reference Range Comments PHOSPHORUS (BEAKER) (test nstt=053) 3.8 mg/dL 2.3-4.7 [id number] 03:28:00 Test Item Value Reference Range Comments MAGNESIUM (BEAKER) (test cmfe=025) 1.5 mg/dL 1.6-2.6 PROTHROMBIN TIME/[id number] 03:18:00 Test Item Value Reference Range Comments PROTIME (BEAKER) (test dlhe=881) 22.6 seconds 11.7-14.7 INR (BEAKER) (test gwqw=312) 2.0 <=5.9 RECOMMENDED COUMADIN/WARFARIN INR THERAPY RANGESSTANDARD DOSE: 2.0 - 3.0 Includes: PROPHYLAXIS forvenous thrombosis, systemic embolization; TREATMENT for venous thrombosis and/or pulmonary embolus.HIGH RISK: Target INR is 2.5-3.5 for patients with mechanical heart valves.
[2018-02-07] MEDS ORDERED: NA CHLORIDE 0.9% 0 ML ONE (13:33)
[2018-02-07 13:43] LABS: Protime INR 2.07
[2018-02-07 13:44] LABS: Absolute Lymphocytes (CBC) 0.4 K/uL (0.7-4.9); Absolute Monocytes 1.7 K/uL (0.1-1.3); Absolute Neutrophil 18.7 K/uL (1.8-8.0); Basophils % 0.1 % (0-1.3); Lymphocytes % 1.9 % (15.3-44.8); MPV 9.4 fL (7.6-11.3); RBC Red Blood Cell Count 1.39 M/uL (3.86-4.86)
--- NOTE | 2018-02-07 13:46 | RAD REPORT ---
EXAM DESCRIPTION: CT - Head C Spine Cap W Con - 02/07/2018 1:26 pm CLINICAL HISTORY: Trauma, head and neck injury. Chest, abdomen and pelvis pain. SMASH INJURY COMPARISON: Abdomen Pelvis W Contrast dated 08/31/2016; Hip Left 2 View dated 01/26/2018 TECHNIQUE: CT head without contrast. CT cervical spine without contrast with coronal and sagittal reformatted images. CT chest, abdomen and pelvis with IV contrast (approximately 100 mL nonionic IV contrast) with nicole l and sagittal reformatted images of the spine. All CT scans are performed using dose optimization technique as appropriate and may include automated exposure control or mA/KV adjustment according to patient size. FINDINGS: CT HEAD WITHOUT CONTRAST: No intracranial hemorrhage, hydrocephalus or extra-axial fluid collection. Mild generalized brain atr ophy. No areas of brain edema or midline shift. The paranasal sinuses and mastoids are clear. The calvarium is intact. CT CERVICAL SPINE WITHOUT CONTRAST: No fracture or subluxation. Spondylosis is noted involving the mid and lower cervical levels with sma ll endplate osteophytes present. The prevertebral soft tissues are normal in thickness. CT CHEST, ABDOMEN, PELVIS WITH CONTRAST: A few small areas of ground-glass opacity are present in both lungs, greatest in the right middle lob e. Large amount of esophageal varices are seen.No pneumothorax or pericardial/pleural fluid. Prominent liver cirrhosis is noted with several low-density liver lesions identified, largest measuri ng 15 mm in the superior right lobe of the liver. The spleen, pancreas, adrenal glands kidneys show n o acute process. Mild ascites is present. No pelvic mass or hematoma. Moderate stool is present in the rectum. There is evidence of a dislocated left hip arthroplasty. The acetabular cup itself appears externally rotated and position is superior to the acetabulum. Small bony fragments are present in the acetabul um inferiorly. Several chronic left posterior rib fractures are seen. No acute rib fractures identified. Multiple we dge compression deformities of thoracic and lumbar vertebral bodies also seen. 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 Multiple wedge compression deformities of thoracic and lumbar spine levels is noted. These fractures are favored to be chronic, however MR would be needed for more accurate dating of these fractures. Liver cirrhosis with mild ascites.
[2018-02-07 13:49] LABS: Albumin 2.1 g/dL (3.4-5.0); Bilirubin Direct 2.3 mg/dL (0-0.2); Bilirubin Total 4.6 mg/dL (0.2-1.0); Potassium 4.2 mmol/L (3.5-5.1); Protein, Total 5.8 g/dL (6.4-8.2); Thyroid Stimulating Hormone 2.06 uIU/mL (0.360-3.740)
[2018-02-07 13:59] LABS: Hematocrit 14.2 % (36.0-45.0)
--- NOTE | 2018-02-07 14:02 | RAD REPORT ---
EXAM DESCRIPTION: RAD - Elbow Right 3 View - 02/07/2018 1:55 pm CLINICAL HISTORY: Swelling;Smash injury COMPARISON: No comparisons FINDINGS: Extensive hardware is present within the right elbow. Hardware in distal shaft of the belinda jacqueline may be fractured chronically. Moderate soft tissue swelling is evident. Degenerative changes invo lve the right elbow. No acute fracture demonstrated.
[2018-02-07 14:22] LABS: Anisocytosis 1+; Blood Morphology Comment NOTED (NOT SEEN); Hypochromasia 3+; Platelet Estimate ADEQ; Polychromasia 2+; Urine White Blood Cell Casts OK
[2018-02-07] MEDS ORDERED: NA CHLORIDE 0.9% 250 ML ONE ×2 (14:25→15:58)
[2018-02-07] MEDS ORDERED: DIPHENHYDRAMINE 50 MG/ML VIAL ONE (14:40)
--- NOTE | 2018-02-07 15:03 | ER ---
Nurse's Notes [facility] Name: Jami Brewer Age: 57 yrs Sex: Female : 1960 Arrival Date: 02/07/2018 Time: 12:49 Bed 19 Private MD: Diagnosis: Alcoholic cirrhosis of liver with ascites;Anemia in chronic diseases classified elsewhere;Dislocated left hip arthroplasty with fracture Presentation: 02/07 12:38 Presenting complaint: BP 124/54 HR-140s 95% RA. sv 12:45 Presenting complaint: EMS states: Slipped while ambulating with walking in kitchen, hb down for approx 45 minutes, c/o severe left hjp pain /. Pt is 2 weeks s/p left hip replacement. Care prior to arrival: None. Mechanism of Injury: Fall from standing position. Trauma event details: Injury occurred in the [facility], Injury occurred: at home. Injury occurred: February 07, 2018. 12:45 Method Of Arrival: EMS: [facility] hb 12:50 Acuity: PRECIOUS 2 sv 13:42 Risk Assessment: Do you want to hurt yourself or someone else? Patient reports no hb desire to harm self or others. 13:46 Transition of care: patient was not received from another setting of care. Onset of hb symptoms was February 07, 2018. Initial Sepsis Screen: Does the patient meet any 2 criteria? No. Patient's initial sepsis screen is negative. Does the patient have a suspected source of infection? No. Patient's initial sepsis screen is negative. Trauma Activation: Alert Physician: ED Physician; Name: ; Notified At: ; Arrived At: Physician: General Surgeon; Name: ; Notified At: ; Arrived At: Physician: Radiology; Name: ; Notified At: ; Arrived At: Physician: Respiratory; Name: ; Notified At: ; Arrived At: Physician: Lab; Name: ; Notified At: ; Arrived At: Historical: - Allergies: 13:42 No Known Allergies; hb - PMHx: 13:42 Cirrhosis; Depression; Hypertension; Ulcers; hb - PSHx: 13:42 Hip - LEFT; hb - Immunization history:: Adult Immunizations up to date. - Social history:: Smoking status: Patient/guardian denies using tobacco. - Immunization history: Last tetanus immunization: unknown. - Ebola Screening: : No symptoms or risks identified at this time. Screenin:00 Fall Risk Total Angulo Fall Scale indicates High Risk Score (45 or more points). Fall hb prevention measures have been instituted. Side Rails Up X 2 Frequent Obs/Assessments Occuring Family Present and informed to notify staff if the need to leave the bedside As available patient and family educated on Fall Prevention Program and Strategies. 13:00 Abuse screen: Denies threats or abuse. Denies injuries from another. Nutritional hb screening: No deficits noted. Tuberculosis screening: No symptoms or risk factors identified. Primary Survey: 12:46 NO uncontrolled hemorrhage observed. A: The patient is alert. Airway: patent. hb Breathing/Chest: Respiratory pattern: regular, Respiratory effort: spontaneous, unlabored, Chest inspection: symmetrical rise and fall of the chest. Circulation: Pulses: palpable . Skin color: pale, jaundiced. Disability Alert. Exposure/Environment: There is no evidence of uncontrolled external bleeding. Obvious injury(ies) are noted at this time: pain in right abdomen, right elbow, left hip. 13:53 Reassessment Airway Airway Patent Oxygen No O2 Oral cavity Clear Trachea Midline sv Breathing/Chest Respiratory pattern Regular Respiratory effort Spontaneous Unlabored Chest inspection Symmetrical Circulation Heart tones Present Color Other jaundice Temperature Warm Dry Disability Alert. Secondary Survey: 12:40 Musculoskeletal: Swelling present in left lower back, left gluteus lizbeth, anterior sv aspect of left lateral abdomen, left iliac crest, left hip and left leg. 12:46 HEENT: Face Other bruising noted to left upper forehead. Gastrointestinal: Abdomen is hb distended, Patient reports Other right sided abdominal pain. : No deficits noted. No signs and/or symptoms were reported regarding the genitourinary system. Musculoskeletal: Reports pain in right elbow, right sided abdomen, left hip. Assessment: 12:40 Derm: Bruising that is dark purple, yellow, on left lower back, left gluteus lizbeth, sv posterior aspect of left lateral abdomen, left iliac crest, left hip and left leg. 13:20 Reassessment: Patient appears in no apparent distress at this time. No changes from sv previously documented assessment. Patient and/or family updated on plan of care and expected duration. Pain level reassessed. 14:00 Reassessment: Patient appears in no apparent distress at this time. No changes from sv previously documented assessment. Patient and/or family updated on plan of care and expected duration. Pain level reassessed. 15:00 Reassessment: blood slip sent for RBCs, awaiting unit to arrive to ED. Stephanie Srivastava, ss EKG TECH notified of 99.2 temperature. No further orders have been given. Will continue to monitor patient closely. 15:15 Reassessment: 1st unit of PRBCs started. sv 15:22 Reassessment: Patient appears in no apparent distress at this time. No changes from sv previously documented assessment. Patient and/or family updated on plan of care and expected duration. Pain level reassessed. 15:38 Reassessment: Report called to Brianda TRUONG at [facility]. ss 16:10 Reassessment: Patient appears in no apparent distress at this time. No changes from sv previously documented assessment. Patient and/or family updated on plan of care and expected duration. Pain level reassessed. Attempted to change pt's sheets underneath her, pt unable to tolerate it. Brief placed underneath pt as best as it could be. 16:41 Reassessment: Patient appears in no apparent distress at this time. No changes from sv previously documented assessment. Patient and/or family updated on plan of care and expected duration. Pain level reassessed. Pt receiving a blood transfusion at this time, unable to get a repeat lactate. Bedside report given to Chey from EMS. Both units of PRBCs checked off with Chey from EMS. Vital Signs: 12:41 BP 120 / 58; Pulse 136; Resp 22; Temp 98.5; Pulse Ox 97% ; Height 5 ft. 7 in. (170.18 sv cm); 13:46 BP 110 / 55; Pulse 128; Resp 16; Pulse Ox 99% ; sv 15:10 BP 102 / 40; Pulse 127 MON; Resp 17; Temp 99.2; Pulse Ox 99% on 2 lpm NC; sv 15:30 BP 108 / 56; Pulse 125; Resp 17; Temp 99.4(O); Pulse Ox 100% on 2 lpm NC; sv 16:15 BP 106 / 52; Pulse 130; Resp 16; Temp 99.4(O); Pulse Ox 100% on 2 lpm NC; sv 16:30 BP 112 / 48; Pulse 124; Resp 14; Temp 99.9(O); Pulse Ox 100% on 2 lpm NC; sv 15:10 Sinus tachycardia sv Ashley Coma Score: 12:42 Eye Response: spontaneous(4). Verbal Response: oriented(5). Motor Response: obeys hb commands(6). Total: 15. Trauma Score (Adult): 12:42 Eye Response: spontaneous(1); Verbal Response: oriented(1); Motor Response: obeys sv commands(2); Systolic BP: > 89 mm Hg(4); Respiratory Rate: 10 to 29 per min(4); [place] Score: 15; Trauma Score: 12 ED Course: 12:49 Patient arrived in ED. sv 12:49 Marnie Vaz, RN is Primary Nurse. sv 12:50 Triage completed. sv 12:50 Patient maintains SpO2 saturation greater than 95% on room air. hb 12:50 Patient has correct armband on for positive identification. Placed in gown. Bed in low hb position. Call light in reach. Side rails up X2. 12:58 Stephanie Srivastava FNP-C is [facility]. snw 12:58 Tae Barba MD is Attending Physician. snw 13:00 Initial lab(s) drawn, by me, sent to lab. First set of blood cultures drawn by me. sv Inserted saline lock: 20 gauge in left forearm, using aseptic technique. Blood collected. Flushed left forearm with 5 ml normal saline. 13:00 Thermoregulation: warm blanket given to patient. hb 13:10 Second set of blood cultures drawn by me. Inserted saline lock: 20 gauge in left sv forearm, using aseptic technique. Blood collected. 13:13 Radiology exam delayed due to lab results not completed at this time. (BUN/Creatinine) sj IV insertion attempt and/or patient not having appropriate IV at this time. 13:[address] via stretcher. sv 13:18 EKG done, by prosthetics technician. reviewed by Stephanie SANHCEZ. at1 13:24 CT completed. Patient tolerated procedure well. Patient moved back from CT. nj 13:26 CT Traumagram (Head C Spine CAP W Con) In Process Unspecified. EDMS 13:38 X-ray completed. Portable x-ray completed in exam room. Patient tolerated procedure kp1 well. 13:42 T\T\S collected, blood band applied to patient. dh3 13:42 Arm band placed on. hb 13:54 Notified Nurse Practitioner and/or Physician Last Ironer of a critical lab result(s), la1 Lactate 9.0\E\. 13:55 Elbow Right 3 View XRAY In Process Unspecified. EDMS 14:00 Consent for blood and/or blood product transfusion explained by staff, explained by physician, signed by patient. 14:29 LAB Add On Sent. sv 14:29 Packed RBC Leukored -1 Sent. sv 16:44 No provider procedures requiring assistance completed. Patient transferred, IV remains sv in place. intact. Administered Medications: 13:47 Drug: NS 0.9% 1000 ml Route: IV; Rate: 125 ml/hr; Site: left forearm; sv 16:46 Follow up: Response: No adverse reaction; IV Status: Order to discontinue infusion sv 14:39 Drug: Benadryl 12.5 mg Route: IVP; Site: left forearm; ss 15:31 Follow up: Response: No adverse reaction ss Intake: 12:42 PO: 0ml; Total: 0ml. sv Output: 12:42 Urine: 0ml; Total: 0ml. sv Outcome: 15:03 ER care complete, transfer ordered by . snw 16:44 Transferred by ground EMS to [facility], Transfer form completed. X-rays sent sv w/ patient. 16:44 Condition: stable 16:44 Instructed on the need for transfer. 16:45 Patient's length of stay in the Emergency Department was greater than 2 hours. pt to be sv transferredPatient's length of stay extended due to 16:47 Patient left the ED. sv Signatures: Dispatcher [employer] EDNJ Marnie Vaz RN RN Stephanie Srivastava, SOUR BLEACHING PLEATER-C SOUR BLEACHING PLEATER-CsnCece Holder Shelby, RN RN Cheryl Culver, head of loss prevention EKG Tat1 Barry Dale RN RN la1 Gala Alonso, Des Baker RN, Kathy kp1 Nadia Lozada [facility] Corrections: (The following items were deleted from the chart) 13:45 12:42 BP 106 / 53; Pulse 135bpm; Resp 17bpm; Pulse Ox 100% RA; Pain 10/10; hb hb 15:23 12:42 Ashley Score=15, Trauma Score=12, hb sv 16:43 16:41 Reassessment: Patient appears in no apparent distress at this time. No changes sv from previously documented assessment. Patient and/or family updated on plan of care and expected duration. Pain level reassessed. Pt receiving a blood transfusion at this time, unable to get a repeat lactate. Bedside report given to Chey from EMS. sv
--- NOTE | 2018-02-07 15:03 | EDPHYS ---
Physician Documentation [facility] Name: Jami Brewer Age: 57 yrs Sex: Female : 1960 Arrival Date: 02/07/2018 Time: 12:49 Bed 19 Private MD: ED Physician Tae Barba HPI: 02/07 13:19 This 57 yrs old Female presents to ER via Unassigned with complaints of Fall snw Injury. 13:19 Details of fall: The patient fell from an upright position, while standing. Onset: The snw symptoms/episode began/occurred gradually, pt unable to say how many falls she has had post recent surgery. Associated injuries: The patient sustained injury to the abdomen, swelling, tenderness, left hip and left elbow. Severity of symptoms: At their worst the symptoms were moderate, severe. The patient has experienced a previous episode, approximately 2 weeks ago. The patient has been recently seen by a physician: The patient has been recently seen at the [facility] Emergency Department, a couple of weeks ago, for similar complaints sent to [place] for left hip. Historical: - Allergies: 13:42 No Known Allergies; hb - PMHx: 13:42 Cirrhosis; Depression; Hypertension; Ulcers; hb - PSHx: 13:42 Hip - LEFT; hb - Immunization history:: Adult Immunizations up to date. - Social history:: Smoking status: Patient/guardian denies using tobacco. - Immunization history: Last tetanus immunization: unknown. - Ebola Screening: : No symptoms or risks identified at this time. ROS: 13:17 ENT: Negative for injury, pain, and discharge. snw 13:17 Neck: Negative for injury, pain, and swelling, Cardiovascular: Negative for chest pain, palpitations, and edema, Respiratory: Negative for shortness of breath, cough, wheezing, and pleuritic chest pain, : Negative for injury, bleeding, discharge, and swelling, Skin: Negative for injury, rash, and discoloration, Neuro: Negative for headache, weakness, numbness, tingling, and seizure. 13:17 Constitutional: Positive for body aches, malaise. 13:17 Eyes: Positive for pain, swelling. 13:17 Abdomen/GI: Positive for abdominal pain, of the suprapubic area and right lower quadrant, right elbow. Exam: 13:10 ENT: Nares patent. No nasal discharge, no septal abnormalities noted. Tympanic snw membranes are normal and external auditory canals are clear. Oropharynx with no redness, swelling, or masses, exudates, or evidence of obstruction, uvula midline. Mucous membranes moist. Neck: Trachea midline, no thyromegaly or masses palpated, and no cervical lymphadenopathy. Supple, full range of motion without nuchal rigidity, or vertebral point tenderness. No Meningismus. Chest/axilla: Normal chest wall appearance and motion. Nontender with no deformity. No lesions are appreciated. 13:10 Respiratory: Lungs have equal breath sounds bilaterally, clear to auscultation and percussion. No rales, rhonchi or wheezes noted. No increased work of breathing, no retractions or nasal flaring. 13:10 Back: No spinal tenderness. No costovertebral tenderness. Full range of motion. 13:10 Constitutional: The patient appears awake, pale, unkempt. 13:10 Head/face: Noted is ecchymosis, that is mild, of the forehead. 13:10 Eyes: Conjunctiva: pale, bilaterally, Sclera: icterus, is present. 13:10 Cardiovascular: Rate: tachycardic, Rhythm: regular, Pulses: no pulse deficits are appreciated, Edema: 3+ edema to level of right elbow, left upper thigh, left lower thigh, left knee, left midcalf, left ankle, left foot and left toes. 13:10 Skin: Appearance: Color: jaundiced, pale, ecchymosis, that are moderate, that are marked, and are scattered. 13:10 Neuro: Orientation: to person, place, Mentation: no acute changes, seizure activity, is not displayed by the patient. Vital Signs: 12:41 BP 120 / 58; Pulse 136; Resp 22; Temp 98.5; Pulse Ox 97% ; Height 5 ft. 7 in. (170.18 sv cm); 13:46 BP 110 / 55; Pulse 128; Resp 16; Pulse Ox 99% ; sv 15:10 BP 102 / 40; Pulse 127 MON; Resp 17; Temp 99.2; Pulse Ox 99% on 2 lpm NC; sv 15:30 BP 108 / 56; Pulse 125; Resp 17; Temp 99.4(O); Pulse Ox 100% on 2 lpm NC; sv 16:15 BP 106 / 52; Pulse 130; Resp 16; Temp 99.4(O); Pulse Ox 100% on 2 lpm NC; sv 16:30 BP 112 / 48; Pulse 124; Resp 14; Temp 99.9(O); Pulse Ox 100% on 2 lpm NC; sv 15:10 Sinus tachycardia sv [place] Coma Score: 12:42 Eye Response: spontaneous(4). Verbal Response: oriented(5). Motor Response: obeys hb commands(6). Total: 15. Trauma Score (Adult): 12:42 Eye Response: spontaneous(1); Verbal Response: oriented(1); Motor Response: obeys sv commands(2); Systolic BP: > 89 mm Hg(4); Respiratory Rate: 10 to 29 per min(4); Ashley Score: 15; Trauma Score: 12 MDM: 12:58 Patient medically screened. snw 14:21 Data reviewed: vital signs, nurses notes. Data interpreted: Pulse oximetry: on room air snw is 97 %. Interpretation: acceptable. Counseling: I had a detailed discussion with the patient and/or guardian regarding: the historical points, exam findings, and any diagnostic results supporting the discharge/admit diagnosis, lab results, radiology results, the need to transfer to another facility, for higher level of care. ED course: will order blood transfusion now and attempt transfer back to [place]. 02/07 12:57 Order name: Basic Metabolic Panel; Complete Time: 13:54 snw 02/07 12:57 Order name: CBC with Diff; Complete Time: 14:25 snw 02/07 12:57 Order name: Hepatic Function; Complete Time: 13:54 snw 02/07 12:57 Order name: Lipase; Complete Time: 13:54 snw 02/07 12:57 Order name: TS snw 02/07 12:57 Order name: TSH; Complete Time: 13:54 snw 02/07 12:57 Order name: ETOH Level; Complete Time: 13:38 snw 02/07 12:57 Order name: PT-INR; Complete Time: 13:56 snw 02/07 12:57 Order name: Ptt, Activated; Complete Time: 13:56 snw 02/07 13:09 Order name: AMMONIA; Complete Time: 13:38 snw 02/07 13:17 Order name: Blood Culture Adult (2) sv 02/07 13:17 Order name: Lactate; Complete Time: 13:54 sv 02/07 14:03 Order name: CBC Smear Scan; Complete Time: 14:25 EDMS 02/07 12:57 Order name: IV Saline Lock; Complete Time: 13:17 snw 02/07 12:57 Order name: Labs collected and sent; Complete Time: 13:17 snw 02/07 13:09 Order name: CT Traumagram (Head C Spine CAP W Con); Complete Time: 13:49 snw 02/07 13:09 Order name: EKG - Nurse/Tech; Complete Time: 13:16 snw 02/07 13:09 Order name: NPO; Complete Time: 13:16 snw 02/07 13:09 Order name: O2 Per Protocol; Complete Time: 13:16 snw 02/07 13:09 Order name: O2 Sat Monitoring; Complete Time: 13:16 snw 02/07 13:09 Order name: Elbow Right 3 View XRAY; Complete Time: 14:06 snw 02/07 13:09 Order name: EKG; Complete Time: 13:10 snw 02/07 14:01 Order name: Consent for Blood Transfusion; Complete Time: 14:29 snw 02/07 14:09 Order name: LAB Add On ag 02/07 14:12 Order name: Packed RBC Leukored -1 EDMS 02/07 14:01 Order name: IV Saline Lock; Complete Time: 14:13 snw Administered Medications: 13:47 Drug: NS 0.9% 1000 ml Route: IV; Rate: 125 ml/hr; Site: left forearm; sv 16:46 Follow up: Response: No adverse reaction; IV Status: Order to discontinue infusion sv 14:39 Drug: Benadryl 12.5 mg Route: IVP; Site: left forearm; ss 15:31 Follow up: Response: No adverse reaction ss Disposition: 02/08 07:01 Co-signature as Attending Physician, Tae Barba MD I agree with the assessment and weston plan of care. Disposition: 02/07/18 15:03 Transfer ordered to [facility]. Diagnosis are Alcoholic cirrhosis of liver with ascites, Anemia in chronic diseases classified elsewhere, Dislocated left hip arthroplasty with fracture. - Reason for transfer: Higher level of care. - Accepting physician is Dr. Achor, Zi kindly accepts pt in transfer. - Condition is Stable. - Problem is an acute exacerbation. - Symptoms have worsened. Signatures: Dispatcher [employer] [facility] Marnie Vaz RN RN Tae Mayorga MD MD cha Therrien, Shelly, STRETCHING PRESS OPERATOR-C STRETCHING PRESS OPERATOR-Csnw Mallorie Tripp RN RN ss Gala Alonso RN RN Corrections: (The following items were deleted from the chart) 02/07 13:14 13:02 Pelvis Wo Cont+CT.RAD.BRZ ordered. [facility] EDMO 16:47 15:03 02/07/2018 15:03 Transfer ordered to [facility]. sv Diagnosis is Alcoholic cirrhosis of liver with ascites; Anemia in chronic diseases classified elsewhere; Dislocated left hip arthroplasty with fracture. Reason for transfer: Higher level of care. Accepting physician is Zi Hines kindly accepts pt in transfer. Condition is Stable. Problem is an acute exacerbation. Symptoms have worsened. snw
--- NOTE | 2018-02-07 15:18 | EKG ---
Test Date: 2018-02-07 Test Time: 13:06:26 Asbestos Pipe Supervisor: JUAN MEASUREMENT RESULTS: Intervals: Rate: 135 NH: 140 QRSD: 76 QT: 292 QTc: 438 [place]: P: 77 NH: 140 QRS: 72 T: 62 INTERPRETIVE STATEMENTS: Sinus tachycardia Otherwise normal ECG Compared to ECG 01/26/2018 13:17:04 Left ventricular hypertrophy no longer present Electronically Signed On 02-07-18 15:17:31 SALES REPRESENTATIVE ADVERTISING by Hu Dent
[2018-02-07] MEDS ORDERED: NA CHLORIDE 0.9% 1,000 ML ONE (15:58)
== END 2018-02-07 16:47 | disposition short-term general hospital (02) ==
LOC: ER 12:42
PROC: 30233N1 Transfusion of Nonautologous Red Blood Cells into Peripheral Vein, Percutaneous Approach (ICD-10-PCS; principal; 2018-02-07)
DX: M97.02XA Periprosthetic fracture around internal prosthetic left hip joint, initial encounter (principal); T84.021A Dislocation of internal left hip prosthesis, initial encounter; K70.31 Alcoholic cirrhosis of liver with ascites; D63.8 Anemia in other chronic diseases classified elsewhere; W18.39XA Other fall on same level, initial encounter; Y93.89 Activity, other specified; Y92.9 Unspecified place or not applicable; I10 Essential (primary) hypertension
CPT/HCPCS: 36415; 70450; 71260; 72125; 74177; 80048; 80076; 80320; 82140; 82962; 83605; 83690; 84443; 85025; 85610; 85730; 86850; 86900; 86901; 87040; 87205; 93005; J7030; P9016; Q9967

== ENCOUNTER 2018-04-11 19:13 | Inpatient (IN) | payer OTHER, SELFPAY ==
--- OUTSIDE RECORDS SUMMARY | 2018-04-11 19:15 | XMS REPORT ---
:1960 Author Organization [facility] Address [address] [place] [address] Care Team Providers Name Role Phone STEPHANIE MAYA Unavailable Unavailable Problems This patient has no known problems. Allergies, Adverse Reactions, Alerts This patient has no known allergies or adverse reactions. Medications This patient has no known medications. Results Test Description Test Time Test Comments Text Results Atomic Results Result Comments BLOOD CULTURE 2016-09-06 11:00:00 Test Item Value Reference Range Comments CULTURE (BEAKER) (test qxcx=4944) No growth in 5 days BLOOD [id number] 11:00:00 Test Item Value Reference Range Comments CULTURE (BEAKER) (test ghkq=9002) No growth in 5 days CBC W/PLT COUNT & AUTO [id number] 08:38:00 Test Item Value Reference Range Comments WHITE BLOOD CELL COUNT (BEAKER) (test ltfe=931) 9.6 K/ L 3.5-10.5 RED BLOOD CELL COUNT (BEAKER) (test yuvt=137) 3.00 M/ L 3.93-5.22 HEMOGLOBIN (BEAKER) (test lkcn=168) 7.4 GM/DL 11.2-15.7 HEMATOCRIT (BEAKER) (test qles=420) 24.4 % 34.1-44.9 MEAN CORPUSCULAR VOLUME (BEAKER) (test ieow=678) 81.3 fL 79.4-94.8 MEAN CORPUSCULAR HEMOGLOBIN (BEAKER) (test 24.7 pg 25.6-32.2 rbza=091) MEAN CORPUSCULAR HEMOGLOBIN CONC (BEAKER) (test 30.3 GM/DL 32.2-35.5 rkgo=856) RED CELL DISTRIBUTION WIDTH (BEAKER) (test 22.5 % 11.7-14.4 zfzc=040) PLATELET COUNT (BEAKER) (test dmfi=351) 91 K/CU MM 150-450 MEAN PLATELET VOLUME (BEAKER) (test chbl=903) 10.3 fL 9.4-12.3 NUCLEATED RED BLOOD CELLS (BEAKER) (test 0 /100 WBC 0-0 iopn=300) NEUTROPHILS RELATIVE PERCENT (BEAKER) (test 71 % prmy=535) LYMPHOCYTES RELATIVE PERCENT (BEAKER) (test 15 % vnxw=644) MONOCYTES RELATIVE PERCENT (BEAKER) (test 10 % lxjw=360) EOSINOPHILS RELATIVE PERCENT (BEAKER) (test 4 % cafx=789) BASOPHILS RELATIVE PERCENT (BEAKER) (test 1 % ayjz=215) NEUTROPHILS ABSOLUTE COUNT (BEAKER) (test 6.82 K/ L 1.56-6.13 sbzt=268) LYMPHOCYTES ABSOLUTE COUNT (BEAKER) (test 1.39 K/ L 1.18-3.74 mkzw=235) MONOCYTES ABSOLUTE COUNT (BEAKER) (test hqdx=132) 0.92 K/ L 0.24-0.36 EOSINOPHILS ABSOLUTE COUNT (BEAKER) (test 0.37 K/ L 0.04-0.36 ukxd=809) BASOPHILS ABSOLUTE COUNT (BEAKER) (test gvfj=418) 0.06 K/ L 0.01-0.08 IMMATURE GRANULOCYTES-RELATIVE PERCENT (BEAKER) 1 % 0-1 (test bwon=3221) COMPREHENSIVE METABOLIC [id number] 07:11:00 Test Item Value Reference Range Comments TOTAL PROTEIN (BEAKER) 6.5 gm/dL 6.0-8.3 (test niki=335) ALBUMIN (BEAKER) (test 2.2 g/dL 3.5-5.0 xcew=0682) ALKALINE PHOSPHATASE 111 U/L 40-150 (BEAKER) (test sbtu=670) BILIRUBIN TOTAL (BEAKER) 3.2 mg/dL 0.2-1.2 (test xdww=570) SODIUM (BEAKER) (test 139 meq/L 136-145 xmjk=339) POTASSIUM (BEAKER) (test 3.2 meq/L 3.5-5.1 korl=451) CHLORIDE (BEAKER) (test 105 meq/L 98-107 lovy=006) CO2 (BEAKER) (test 27 meq/L 22-29 olha=775) BLOOD UREA NITROGEN 4 mg/dL 7-21 (BEAKER) (test kuta=165) CREATININE (BEAKER) (test 0.63 mg/dL 0.57-1.25 kiqx=226) GLUCOSE RANDOM (BEAKER) 107 mg/dL 70-105 (test kqvk=282) CALCIUM (BEAKER) (test 7.7 mg/dL 8.4-10.2 alfg=205) AST (SGOT) (BEAKER) (test 55 U/L 5-34 ckhf=726) ALT (SGPT) (BEAKER) (test 17 U/L 6-55 kzmm=405) EGFR (BEAKER) (test 98 mL/min/1.73 sq m ESTIMATED GFR IS NOT unwg=3108) ACCURATE CREATININE CLEARANCE IN PREDICTING GLOMERULAR FILTRATION RATE. ESTIMATED GFR IS NOT APPLICABLE FOR DIALYSIS PATIENTS. Specimen slightly ictericPROTHROMBIN [id number] 06:07:00 Test Item Value Reference Range Comments PROTIME (BEAKER) (test nvlj=913) 23.2 seconds 11.7-14.7 INR (BEAKER) (test wsld=037) 2.1 <=5.9 RECOMMENDED COUMADIN/WARFARIN INR THERAPY RANGESSTANDARD DOSE: 2.0 - 3.0 Includes: PROPHYLAXIS forvenous thrombosis, systemic embolization; TREATMENT for venous thrombosis and/or pulmonary embolus.HIGH RISK: Target INR is 2.5-3.5 for patients with mechanical heart valves.BODY FLUID CULTURE + GRAM [id number] 00:14:00 Test Item Value Reference Range Comments CULTURE (BEAKER) (test zovg=6083) No growth GRAM STAIN RESULT (BEAKER) (test No WBCs jqgb=4451) GRAM STAIN RESULT (BEAKER) (test No organisms seen etkq=54663) HEMOGLOBIN AND [id number] 23:16:00 Test Item Value Reference Range Comments HEMOGLOBIN (BEAKER) (test xiac=682) 7.4 GM/DL 11.2-15.7 HEMATOCRIT (BEAKER) (test ijqu=855) 24.6 % 34.1-44.9 HEMOGLOBIN AND [id number] 10:55:00 Test Item Value Reference Range Comments HEMOGLOBIN (BEAKER) (test npvb=821) 8.2 GM/DL 11.2-15.7 HEMATOCRIT (BEAKER) (test anwm=528) 27.2 % 34.1-44.9 CBC W/PLT COUNT & AUTO [id number] 09:09:00 Test Item Value Reference Range Comments WHITE BLOOD CELL COUNT 7.7 K/ L 3.5-10.5 (BEAKER) (test koak=941) RED BLOOD CELL COUNT (BEAKER) 3.02 M/ L 3.93-5.22 (test vbgk=430) HEMOGLOBIN (BEAKER) (test 7.4 GM/DL 11.2-15.7 mxfg=570) HEMATOCRIT (BEAKER) (test 24.0 % 34.1-44.9 ouvc=816) MEAN CORPUSCULAR VOLUME 79.5 fL 79.4-94.8 (BEAKER) (test bnbu=047) MEAN CORPUSCULAR HEMOGLOBIN 24.5 pg 25.6-32.2 (BEAKER) (test rbrg=073) MEAN CORPUSCULAR HEMOGLOBIN 30.8 GM/DL 32.2-35.5 CONC (BEAKER) (test mdad=622) RED CELL DISTRIBUTION WIDTH 22.2 % 11.7-14.4 (BEAKER) (test lxig=327) PLATELET COUNT (BEAKER) (test 77 K/CU MM 150-450 iksc=021) MEAN PLATELET VOLUME (BEAKER) fL 9.4-12.3 Unable to report due to (test jago=354) abnormal Platelet population distribution. NUCLEATED RED BLOOD CELLS 0 /100 WBC 0-0 (BEAKER) (test txdi=458) NEUTROPHILS RELATIVE PERCENT 69 % (BEAKER) (test wtqb=003) LYMPHOCYTES RELATIVE PERCENT 15 % (BEAKER) (test sbuo=409) MONOCYTES RELATIVE PERCENT 11 % (BEAKER) (test eqfh=443) EOSINOPHILS RELATIVE PERCENT 4 % (BEAKER) (test pkrp=556) BASOPHILS RELATIVE PERCENT 1 % (BEAKER) (test mreo=229) NEUTROPHILS ABSOLUTE COUNT 5.26 K/ L 1.56-6.13 (BEAKER) (test mbyu=201) LYMPHOCYTES ABSOLUTE COUNT 1.16 K/ L 1.18-3.74 (BEAKER) (test bpni=581) MONOCYTES ABSOLUTE COUNT 0.84 K/ L 0.24-0.36 (BEAKER) (test sqxn=371) EOSINOPHILS ABSOLUTE COUNT 0.30 K/ L 0.04-0.36 (BEAKER) (test ynac=310) BASOPHILS ABSOLUTE COUNT 0.06 K/ L 0.01-0.08 (BEAKER) (test okhs=722) IMMATURE GRANULOCYTES-RELATIVE 1 % 0-1 PERCENT (BEAKER) (test hwdk=3151) COMPREHENSIVE METABOLIC [id number] 07:08:00 Test Item Value Reference Range Comments TOTAL PROTEIN (BEAKER) 6.8 gm/dL 6.0-8.3 (test juvm=142) ALBUMIN (BEAKER) (test 2.3 g/dL 3.5-5.0 abmk=0320) ALKALINE PHOSPHATASE 116 U/L 40-150 (BEAKER) (test mtbz=750) BILIRUBIN TOTAL (BEAKER) 3.3 mg/dL 0.2-1.2 (test joyw=685) SODIUM (BEAKER) (test 137 meq/L 136-145 ibrv=055) POTASSIUM (BEAKER) (test 3.0 meq/L 3.5-5.1 pbed=251) CHLORIDE (BEAKER) (test 103 meq/L 98-107 cevg=629) CO2 (BEAKER) (test 27 meq/L 22-29 htdc=670) BLOOD UREA NITROGEN 5 mg/dL 7-21 (BEAKER) (test ccvi=775) CREATININE (BEAKER) (test 0.61 mg/dL 0.57-1.25 esvm=065) GLUCOSE RANDOM (BEAKER) 112 mg/dL 70-105 (test svmf=650) CALCIUM (BEAKER) (test 7.5 mg/dL 8.4-10.2 tmpk=341) AST (SGOT) (BEAKER) (test 55 U/L 5-34 lhuo=981) ALT (SGPT) (BEAKER) (test 17 U/L 6-55 ttzp=468) EGFR (BEAKER) (test 102 mL/min/1.73 sq ESTIMATED GFR IS NOT kmem=6616) m ACCURATE CREATININE CLEARANCE IN PREDICTING GLOMERULAR FILTRATION RATE. ESTIMATED GFR IS NOT APPLICABLE FOR DIALYSIS PATIENTS. Specimen slightly ictericPROTHROMBIN TIME/[id number] 06:40:00 Test Item Value Reference Range Comments PROTIME (BEAKER) (test kuud=735) 23.1 seconds 11.7-14.7 INR (BEAKER) (test rtbk=997) 2.0 <=5.9 RECOMMENDED COUMADIN/WARFARIN INR THERAPY RANGESSTANDARD DOSE: 2.0 - 3.0 Includes: PROPHYLAXIS forvenous thrombosis, systemic embolization; TREATMENT for venous thrombosis and/or pulmonary embolus.HIGH RISK: Target INR is 2.5-3.5 for patients with mechanical heart valves.HEMOGLOBIN AND [id number] 21 :22:00 Test Item Value Reference Range Comments HEMOGLOBIN (BEAKER) (test qrtc=467) 8.0 GM/DL 11.2-15.7 HEMATOCRIT (BEAKER) (test rfbz=529) 26.2 % 34.1-44.9 ANTI-NUCLEAR ANTIBODY (FLORES)2016-09-02 13:41:00 Test Item Value Reference Range Comments ANTI-NUCLEAR ANTIBODY (FLORES) (BEAKER) (test Negative Negative ixkd=293) CBC W/PLT COUNT & AUTO [id number] 06:28:00 Test Item Value Reference Range Comments WHITE BLOOD CELL COUNT (BEAKER) (test usbq=618) 5.6 K/ L 3.5-10.5 RED BLOOD CELL COUNT (BEAKER) (test qzdm=152) 2.98 M/ L 3.93-5.22 HEMOGLOBIN (BEAKER) (test emdf=063) 7.4 GM/DL 11.2-15.7 HEMATOCRIT (BEAKER) (test ckmf=990) 23.7 % 34.1-44.9 MEAN CORPUSCULAR VOLUME (BEAKER) (test qzxm=297) 79.5 fL 79.4-94.8 MEAN CORPUSCULAR HEMOGLOBIN (BEAKER) (test 24.8 pg 25.6-32.2 xfac=684) MEAN CORPUSCULAR HEMOGLOBIN CONC (BEAKER) (test 31.2 GM/DL 32.2-35.5 tnyr=968) RED CELL DISTRIBUTION WIDTH (BEAKER) (test 21.3 % 11.7-14.4 hbln=095) PLATELET COUNT (BEAKER) (test pkva=043) 77 K/CU MM 150-450 MEAN PLATELET VOLUME (BEAKER) (test geyv=972) 10.4 fL 9.4-12.3 NUCLEATED RED BLOOD CELLS (BEAKER) (test 0 /100 WBC 0-0 lnzr=307) NEUTROPHILS RELATIVE PERCENT (BEAKER) (test 63 % dxpc=405) LYMPHOCYTES RELATIVE PERCENT (BEAKER) (test 21 % cpbm=737) MONOCYTES RELATIVE PERCENT (BEAKER) (test 12 % zkqz=237) EOSINOPHILS RELATIVE PERCENT (BEAKER) (test 3 % iyxn=712) BASOPHILS RELATIVE PERCENT (BEAKER) (test 1 % xgkg=240) NEUTROPHILS ABSOLUTE COUNT (BEAKER) (test 3.53 K/ L 1.56-6.13 tglk=834) LYMPHOCYTES ABSOLUTE COUNT (BEAKER) (test 1.15 K/ L 1.18-3.74 exfm=866) MONOCYTES ABSOLUTE COUNT (BEAKER) (test tuce=858) 0.68 K/ L 0.24-0.36 EOSINOPHILS ABSOLUTE COUNT (BEAKER) (test 0.17 K/ L 0.04-0.36 jgft=334) BASOPHILS ABSOLUTE COUNT (BEAKER) (test pjwd=353) 0.05 K/ L 0.01-0.08 IMMATURE GRANULOCYTES-RELATIVE PERCENT (BEAKER) 1 % 0-1 (test abuv=8081) COMPREHENSIVE METABOLIC [id number] 05:34:00 Test Item Value Reference Range Comments TOTAL PROTEIN (BEAKER) 7.0 gm/dL 6.0-8.3 (test qums=360) ALBUMIN (BEAKER) (test 2.4 g/dL 3.5-5.0 gblk=4317) ALKALINE PHOSPHATASE 120 U/L 40-150 (BEAKER) (test jwtk=144) BILIRUBIN TOTAL (BEAKER) 2.7 mg/dL 0.2-1.2 (test exve=427) SODIUM (BEAKER) (test 137 meq/L 136-145 krcq=893) POTASSIUM (BEAKER) (test 3.7 meq/L 3.5-5.1 mavp=841) CHLORIDE (BEAKER) (test 106 meq/L 98-107 besz=758) CO2 (BEAKER) (test 25 meq/L 22-29 wphu=316) BLOOD UREA NITROGEN 9 mg/dL 7-21 (BEAKER) (test oksp=024) CREATININE (BEAKER) (test 0.61 mg/dL 0.57-1.25 fwmr=154) GLUCOSE RANDOM (BEAKER) 135 mg/dL 70-105 (test zamo=332) CALCIUM (BEAKER) (test 7.3 mg/dL 8.4-10.2 zcuy=435) AST (SGOT) (BEAKER) (test 67 U/L 5-34 klvb=443) ALT (SGPT) (BEAKER) (test 21 U/L 6-55 ycvn=880) EGFR (BEAKER) (test 102 mL/min/1.73 sq ESTIMATED GFR IS NOT mmtn=5568) m ACCURATE CREATININE CLEARANCE IN PREDICTING GLOMERULAR FILTRATION RATE. ESTIMATED GFR IS NOT APPLICABLE FOR DIALYSIS PATIENTS. Specimen slightly ictericPROTHROMBIN [id number] 05:31:00 Test Item Value Reference Range Comments PROTIME (BEAKER) (test kane=032) 21.1 seconds 11.7-14.7 INR (BEAKER) (test ssvy=461) 1.8 <=5.9 RECOMMENDED COUMADIN/WARFARIN INR THERAPY RANGESSTANDARD DOSE: 2.0 - 3.0 Includes: PROPHYLAXIS forvenous thrombosis, systemic embolization; TREATMENT for venous thrombosis and/or pulmonary embolus.HIGH RISK: Target INR is 2.5-3.5 for patients with mechanical heart valves.HEMOGLOBIN AND [id number] 05 :26:00 Test Item Value Reference Range Comments HEMOGLOBIN (BEAKER) (test rccc=316) 7.4 GM/DL 11.2-15.7 HEMATOCRIT (BEAKER) (test ztyf=607) 23.7 % 34.1-44.9 HEMOGLOBIN AND [id number] 23:31:00 Test Item Value Reference Range Comments HEMOGLOBIN (BEAKER) (test pohk=531) 7.1 GM/DL 11.2-15.7 HEMATOCRIT (BEAKER) (test iqog=611) 22.9 % 34.1-44.9 URINALYSIS W/ [id number] 22:47:00 Test Item Value Reference Range Comments COLOR (BEAKER) (test kaef=667) Yellow CLARITY (BEAKER) (test lcle=836) Clear SPECIFIC GRAVITY UA (BEAKER) (test ydeb=083) 1.017 1.001-1.035 PH UA (BEAKER) (test wajk=287) 6.0 5.0-8.0 PROTEIN UA (BEAKER) (test xsub=810) Negative Negative GLUCOSE UA (BEAKER) (test crxb=590) Negative Negative KETONES UA (BEAKER) (test fwdg=381) Negative Negative BILIRUBIN UA (BEAKER) (test bohs=443) Negative Negative BLOOD UA (BEAKER) (test kslb=712) Trace Negative NITRITE UA (BEAKER) (test higf=583) Positive Negative LEUKOCYTE ESTERASE UA (BEAKER) (test mqgg=240) Negative Negative UROBILINOGEN UA (BEAKER) (test wcid=763) 0.2 mg/dL 0.2-1.0 RBC UA (BEAKER) (test isux=198) 1 /HPF WBC UA (BEAKER) (test zwtu=860) 5 /HPF BACTERIA (BEAKER) (test sajy=572) Rare MUCUS (BEAKER) (test sxnp=1439) Rare SQUAMOUS EPITHELIAL (BEAKER) (test uaqi=070) 1 /HPF SOURCE(BEAKER) (test bytg=5723) Urine, Voided BODY FLUID CELL COUNT WITH [id number] 20:32:00 Test Item Value Reference Range Comments APPEARANCE FLUID (BEAKER) (test ayaa=821) Slightly Hazy Clear COLOR FLUID (BEAKER) (test gmuw=959) Straw Colorless, Straw RBC FLUID (BEAKER) (test eepj=122) 230 /cu mm <=1 ADJUSTED WBC FLUID (BEAKER) (test wluz=6589) 105 /cu mm <=5 LINING CELLS (BEAKER) (test xttz=5043) 5 /cu mm <=1 NEUTROPHILS FLUID (BEAKER) (test prup=1926) 11 % LYMPHS FLUID (BEAKER) (test rfwy=189) 8 % MONO/MACROPHAGE FLUID (BEAKER) (test 81 % daxn=424) EOSINOPHILS FLUID (BEAKER) (test jyaa=561) 0 % BASO FLUID (BEAKER) (test ruat=363) 0 % CONTAINER BODY FLUID (BEAKER) (test EDTA Tube xzim=4495) HEMOGLOBIN AND [id number] 17:45:00 Test Item Value Reference Range Comments HEMOGLOBIN (BEAKER) (test sifo=058) 7.0 GM/DL 11.2-15.7 HEMATOCRIT (BEAKER) (test upwi=140) 22.5 % 34.1-44.9 ALBUMIN, BODY [id number] 17:14:00 Test Item Value Reference Range Comments ALBUMIN FLUID (BEAKER) (test tzsm=208) < gm/dL Reference Range: No Normals Assay performance has not been validated for this type of specimen.PROTEIN, BODY [id number] 17:14:00 Test Item Value Reference Range Comments PROTEIN FLUID (BEAKER) (test zari=904) < g/dL Absence of reference range indicates that normals have not been defined.Assay performance has not been validated for this type of specimen.TRIGLYCERIDES, BODY [id number] 17:10:00 Test Item Value Reference Range Comments TRIGLYCERIDES FLUID (BEAKER) (test pwsa=811) 12 mg/dL Reference Range: No Normals Assay performance has not been validated for this type of specimen.HEMOGLOBIN AND [id number] 13:36:00 Test Item Value Reference Range Comments HEMOGLOBIN (BEAKER) (test bfha=782) 7.0 GM/DL 11.2-15.7 HEMATOCRIT (BEAKER) (test peth=856) 22.5 % 34.1-44.9 CBC W/PLT COUNT & AUTO [id number] 09:05:00 Test Item Value Reference Range Comments WHITE BLOOD CELL COUNT (BEAKER) (test vniw=358) 6.2 K/ L 3.5-10.5 RED BLOOD CELL COUNT (BEAKER) (test pudg=352) 3.12 M/ L 3.93-5.22 HEMOGLOBIN (BEAKER) (test avly=228) 7.7 GM/DL 11.2-15.7 HEMATOCRIT (BEAKER) (test jjun=498) 25.4 % 34.1-44.9 MEAN CORPUSCULAR VOLUME (BEAKER) (test qmby=994) 81.4 fL 79.4-94.8 MEAN CORPUSCULAR HEMOGLOBIN (BEAKER) (test 24.7 pg 25.6-32.2 urlv=191) MEAN CORPUSCULAR HEMOGLOBIN CONC (BEAKER) (test 30.3 GM/DL 32.2-35.5 sogb=094) RED CELL DISTRIBUTION WIDTH (BEAKER) (test 21.4 % 11.7-14.4 mixm=681) PLATELET COUNT (BEAKER) (test lphc=263) 90 K/CU MM 150-450 MEAN PLATELET VOLUME (BEAKER) (test dlxt=304) 10.1 fL 9.4-12.3 NUCLEATED RED BLOOD CELLS (BEAKER) (test 0 /100 WBC 0-0 pjrs=772) NEUTROPHILS RELATIVE PERCENT (BEAKER) (test 58 % aabr=876) LYMPHOCYTES RELATIVE PERCENT (BEAKER) (test 27 % cnoj=309) MONOCYTES RELATIVE PERCENT (BEAKER) (test 13 % kprt=179) EOSINOPHILS RELATIVE PERCENT (BEAKER) (test 1 % ufzf=975) BASOPHILS RELATIVE PERCENT (BEAKER) (test 1 % uhmx=203) NEUTROPHILS ABSOLUTE COUNT (BEAKER) (test 3.57 K/ L 1.56-6.13 pazt=940) LYMPHOCYTES ABSOLUTE COUNT (BEAKER) (test 1.69 K/ L 1.18-3.74 czfq=589) MONOCYTES ABSOLUTE COUNT (BEAKER) (test dmes=804) 0.79 K/ L 0.24-0.36 EOSINOPHILS ABSOLUTE COUNT (BEAKER) (test 0.06 K/ L 0.04-0.36 boey=489) BASOPHILS ABSOLUTE COUNT (BEAKER) (test yvyl=412) 0.04 K/ L 0.01-0.08 IMMATURE GRANULOCYTES-RELATIVE PERCENT (BEAKER) 1 % 0-1 (test xyyg=4504) (MANUAL DIFFERENTIAL)2016-09-01 09:05:00 Test Item Value Reference Range Comments TOTAL COUNTED (BEAKER) (test rsuu=4218) WBC MORPHOLOGY (BEAKER) (test uydd=815) Normal PLT MORPHOLOGY (BEAKER) (test eqbo=420) Normal HYPOCHROMIA (BEAKER) (test bqrj=778) 1+ few POLYCHROMATOPHILLIC RBCS(BEAKER) (test ofcs=953) 1+ few TARGET CELLS (BEAKER) (test wfbu=259) 1+ few TEAR DROP CELLS (BEAKER) (test mjpu=949) 1+ few [id number] 07:47:00 Test Item Value Reference Range Comments FERRITIN (BEAKER) (test xtaz=912) 17 ng/mL 5-275 Effective 12/24/2013: Reference Range ChangeNew: Male 5-275 Previous: Male 22-322 Female 5-275 Female 10-291ALPHA FETOPROTEIN (AFP), TUMOR [id number] 07:47:00 Test Item Value Reference Range Comments ALPHA-FETOPROTEIN (BEAKER) (test uydi=8783) 3.0 ng/mL <10.0 Effective 12/24/2013: Reference Range ChangeNew: <10.0 Previous: 0.0- 8.0IRON, TIBC, % SAT. (WITHOUT FERRITIN)2016-09-01 07:34:00 Test Item Value Reference Range Comments IRON (BEAKER) (test xxwt=763) 25 ug/dL 40-160 TOTAL IRON BINDING CAPACITY (BEAKER) (test 276 ug/dL 250-450 uzft=586) IRON % SATURATION (2) (BEAKER) (test fcnt=6744) 9 % 20-55 LACTIC ACID, VENOUS, WHOLE [id number] 07:10:00 Test Item Value Reference Range Comments LACTATE BLOOD VENOUS (2) 3.2 mmol/L 0.5-2.2 Specimen slightly hemolyzed (BEAKER) (test eexy=3001) Effective 06/10/2015: Units/Reference Range ChangeNew: 0.5-2.2 mmol/L Previous: 5 -20 mg/dLHEMOGLOBIN AND [id number] 06:51:00 Test Item Value Reference Range Comments HEMOGLOBIN (BEAKER) (test yeab=286) 7.2 GM/DL 11.2-15.7 HEMATOCRIT (BEAKER) (test fpjg=570) 23.3 % 34.1-44.9 HEPATITIS A [id number] 04:15:00 Test Item Value Reference Range Comments HEPATITIS A IGM ANTIBODY (BEAKER) (test Nonreactive Nonreactive ztyi=739) HEPATITIS A IGG ANTIBODY (BEAKER) (test Reactive Nonreactive vnuc=2144) CARCINOEMBRYONIC ANTIGEN (CEA)2016-09-01 04:05:00 Test Item Value Reference Range Comments CARCINOEMBRYONIC ANTIGEN (BEAKER) (test ieup=559) 8.6 ng/mL 0.0-5.0 TSH/FREE T4 IF [id number] 04:05:00 Test Item Value Reference Range Comments THYROID STIMULATING HORMONE (BEAKER) (test 0.43 uIU/mL 0.35-4.94 dgxu=687) HEPATITIS PANEL, [id number] 04:01:00 Test Item Value Reference Range Comments HEPATITIS A IGM ANTIBODY (BEAKER) (test Nonreactive Nonreactive tsou=722) HEPATITIS B CORE IGM ANTIBODY (BEAKER) (test Nonreactive Nonreactive akjb=310) HEPATITIS C ANTIBODY (BEAKER) (test zlhy=102) Nonreactive Nonreactive HEPATITIS B SURFACE ANTIGEN (2) (BEAKER) (test Nonreactive Nonreactive twmx=9598) HEPATITIS B [id number] 04:01:00 Test Item Value Reference Range Comments HEPATITIS B CORE TOTAL ANTIBODY (BEAKER) (test Nonreactive Nonreactive spam=055) HEPATITIS B SURFACE ANTIBODY (BEAKER) (test 24.0 mIU/mL <8.0 tltq=430) HEPATITIS B SURFACE ANTIGEN (2) (BEAKER) (test Nonreactive Nonreactive ialq=7043) HIV-1 ANTIGEN WITH HIV-1/2 [id number] 04:01:00 Test Item Value Reference Range Comments HIV-1 ANTIGEN WITH HIV 1\T\2 ANTIBODY (2) Nonreactive Nonreactive (BEAKER) (test xzjp=8487) [id number] 03:45:00 Test Item Value Reference Range Comments AMMONIA (BEAKER) (test nbxq=515) 80 mol/L 18-72 LACTIC ACID, VENOUS, WHOLE [id number] 03:45:00 Test Item Value Reference Range Comments LACTATE BLOOD VENOUS (2) 3.7 mmol/L 0.5-2.2 Specimen slightly hemolyzed (BEAKER) (test onsh=5888) Effective 06/10/2015: Units/Reference Range ChangeNew: 0.5-2.2 mmol/L Previous: 5 -20 mg/dLCOMPREHENSIVE METABOLIC [id number] 03:35:00 Test Item Value Reference Range Comments TOTAL PROTEIN (BEAKER) 7.0 gm/dL 6.0-8.3 (test yflv=445) ALBUMIN (BEAKER) (test 2.4 g/dL 3.5-5.0 amny=0377) ALKALINE PHOSPHATASE 123 U/L 40-150 (BEAKER) (test bmwo=231) BILIRUBIN TOTAL (BEAKER) 1.8 mg/dL 0.2-1.2 (test yfma=210) SODIUM (BEAKER) (test 139 meq/L 136-145 judl=195) POTASSIUM (BEAKER) (test 4.9 meq/L 3.5-5.1 inhk=993) CHLORIDE (BEAKER) (test 109 meq/L 98-107 nqhu=514) CO2 (BEAKER) (test 21 meq/L 22-29 bkss=186) BLOOD UREA NITROGEN 11 mg/dL 7-21 (BEAKER) (test nyrm=919) CREATININE (BEAKER) (test 0.72 mg/dL 0.57-1.25 xuyj=072) GLUCOSE RANDOM (BEAKER) 90 mg/dL 70-105 (test yneb=394) CALCIUM (BEAKER) (test 7.1 mg/dL 8.4-10.2 ixci=056) AST (SGOT) (BEAKER) (test 74 U/L 5-34 wnjs=688) ALT (SGPT) (BEAKER) (test 21 U/L 6-55 yece=346) EGFR (BEAKER) (test 84 mL/min/1.73 sq m ESTIMATED GFR IS NOT skpk=3276) ACCURATE CREATININE CLEARANCE IN PREDICTING GLOMERULAR FILTRATION RATE. ESTIMATED GFR IS NOT APPLICABLE FOR DIALYSIS PATIENTS. [id number] 03:28:00 Test Item Value Reference Range Comments PHOSPHORUS (BEAKER) (test ohaz=233) 3.8 mg/dL 2.3-4.7 [id number] 03:28:00 Test Item Value Reference Range Comments MAGNESIUM (BEAKER) (test hpip=005) 1.5 mg/dL 1.6-2.6 PROTHROMBIN TIME/[id number] 03:18:00 Test Item Value Reference Range Comments PROTIME (BEAKER) (test wpwy=287) 22.6 seconds 11.7-14.7 INR (BEAKER) (test vplb=823) 2.0 <=5.9 RECOMMENDED COUMADIN/WARFARIN INR THERAPY RANGESSTANDARD DOSE: 2.0 - 3.0 Includes: PROPHYLAXIS forvenous thrombosis, systemic embolization; TREATMENT for venous thrombosis and/or pulmonary embolus.HIGH RISK: Target INR is 2.5-3.5 for patients with mechanical heart valves.
--- OUTSIDE RECORDS SUMMARY | 2018-04-11 19:15 | XMS REPORT | Clinical Summary ---
:1960 [facility] Address [address] [place] [address] Care Team Providers Name Role Phone SivakumarRaymond [...] Not on file Results Not on fileafter 04/10/2017 Advance Directives For more information, please contact:[address] [phone] Code Status Date Activated Date Inactivated Comments Full Code 09/01/2016 10:09 AM 09/04/2016 3:57 PM This code status was determined by: Patient
[2018-04-11] MEDS ORDERED: NALOXONE HCL 2 MG/2 ML VIAL ONE (19:43)
[2018-04-11] MEDS ORDERED: LACTULOSE 20 GM/30 ML UCUP ONE ×2 (19:43→20:44)
[2018-04-11] MEDS ORDERED: ONDANSETRON 4 MG/2 ML VIAL ONE (19:43)
[2018-04-11 20:11] LABS: Absolute Lymphocytes (CBC) 1.7 K/uL (0.7-4.9); Absolute Monocytes 0.8 K/uL (0.1-1.3); Absolute Neutrophil 4.2 K/uL (1.8-8.0); Basophils % 1.2 % (0-1.3); Eosinophils % 9.1 % (0-4.4); Hematocrit 28.7 % (36.0-45.0); Lymphocytes % 22.7 % (15.3-44.8); MPV 8.7 fL (7.6-11.3); Monocytes % 11.1 % (3.3-12.3); RBC Red Blood Cell Count 2.65 M/uL (3.86-4.86)
[2018-04-11 20:12] LABS: Protime INR 1.33
[2018-04-11 20:34] LABS: ALT/SGPT 40 U/L (12-78); AST/SGOT 45 U/L (15-37); Albumin 3.4 g/dL (3.4-5.0); Alkaline Phosphatase 108 U/L (45-117); BUN Blood Urea Nitrogen 61 mg/dL (7-18); Bicarbonate 22 mmol/L (21-32); Bilirubin Direct 1.3 mg/dL (0-0.2); Bilirubin Total 2.2 mg/dL (0.2-1.0); Glucose Level 92 mg/dL (74-106); Potassium 4.6 mmol/L (3.5-5.1); Protein, Total 8.9 g/dL (6.4-8.2); Sodium Level 139 mmol/L (136-145)
[2018-04-11 20:47] LABS: Blood Morphology Comment NOTED (NOT SEEN); Macrocytosis 1+; Platelet Estimate ADEQ; Urine White Blood Cell Casts OK
[2018-04-11 20:48] LABS: Rouleau NOTED
--- NOTE | 2018-04-11 20:50 | ER ---
Nurse's Notes [facility] Name: Jami Brewer Age: 57 yrs Sex: Female : 1960 Arrival Date: 04/11/2018 Time: 19:17 Bed 3 Private MD: Diagnosis: Hyperammonemia;Hepatic encephalopathy;Altered mental status Presentation: 04/11 19:18 Presenting complaint: EMS states: patient is from [facility]. according to rr5 healthcare nurse staff patient started this mid afternoon became disoriented , lethargic GCS 14/15. Transition of care: patient was received from another setting of care (long-term care facility), [facility]. Onset of symptoms was April 11, 2018. Risk Assessment: Do you want to hurt yourself or someone else? Unable to obtain. Note had a hip surgery last January. CBG 104mg/dl. had an laboratory report of low sodium and BUN 42-45. IV site at right forearm removed from previous transfusion. Care prior to arrival: None. 19:18 Method Of Arrival: EMS: [facility] rr5 19:18 Acuity: PRECIOUS 3 rr5 19:18 Initial Sepsis Screen: Does the patient meet any 2 criteria? No. Patient's initial rr5 sepsis screen is negative. Does the patient have a suspected source of infection? No. Patient's initial sepsis screen is negative. Historical: - Allergies: 20:04 No Known Allergies; rr5 - Home Meds: 19:28 pantoprazole oral oral [Active]; rr5 20:02 propranolol 20 mg Oral tab [Active]; sucralfate 1 gram Oral tab 1 tab 4 times per day rr5 [Active]; tramadol 50 mg Oral tab [Active]; Xifaxan 550 mg oral tab [Active]; Aldactone 50 mg Oral tab [Active]; gabapentin 300 mg oral cap [Active]; lactulose 10 gram/15 mL Oral soln [Active]; lidocaine adhesive patch [Active]; melatonin 5 mg tablet [Active]; docusate sodium [Active]; ensure supplement [Active]; Lasix 40 mg Oral tab [Active]; Lexapro Oral [Active]; Seroquel 25 mg Oral tab [Active]; sodium polystyrene sulfonate oral oral [Active]; Tamiflu 75 mg Oral cap [Active]; Veltassa oral oral [Active]; - PMHx: 19:28 Cirrhosis; Depression; Hypertension; Ulcers; rr5 - PSHx: 19:28 left hip surgery; rr5 - Immunization history:: Adult Immunizations unknown. - Social history:: Smoking status: unknown. - Ebola Screening: : Unable to complete screening because. Screenin:30 Abuse screen: Denies threats or abuse. Denies injuries from another. Nutritional rr5 screening: No deficits noted. Tuberculosis screening: No symptoms or risk factors identified. Fall Risk IV access (20 points). Gait- Weak (10 pts.). Mental Status- Overestimates/Forgets Limitations (15 pts.). Total Angulo Fall Scale indicates High Risk Score (45 or more points). Fall prevention measures have been instituted. Side Rails Up X 2 Placed Close to Nursing Station 1:1 Attendant Assigned Frequent Obs/Assessments Occuring Family Present and informed to notify staff if the need to leave the bedside As available patient and family educated on Fall Prevention Program and Strategies. Assessment: 19:20 General: Appears in no apparent distress. comfortable, Behavior is drowsy. Pain: Unable rr5 to use pain scale. Patient is disoriented. Neuro: Level of Consciousness is awake, confused, lethargic, Oriented to disoriented. episodes of disorientation started mid afternoon according to EMS. Cardiovascular: Capillary refill < 3 seconds Patient's skin is warm and dry. Respiratory: Airway is patent Respiratory effort is even, unlabored, Respiratory pattern is regular, symmetrical. GI: No signs and/or symptoms were reported involving the gastrointestinal system. : No signs and/or symptoms were reported regarding the genitourinary system. EENT: No signs and/or symptoms were reported regarding the EENT system. Derm: Skin is intact, Skin temperature is warm. Musculoskeletal: Capillary refill < 3 seconds. 20:00 Reassessment: Patient appears in no apparent distress at this time. able to communicate rr5 to her computer forensics investigator with episodes of disorientation. 20:40 Reassessment: Patient appears in no apparent distress at this time. asleep on bed awake rr5 on verbal command. 21:40 Reassessment: Patient appears in no apparent distress at this time. No changes from rr5 previously documented assessment. patient is for admission. computer forensics investigator agreed. 22:00 Reassessment: Patient appears in no apparent distress at this time. emergency contact rr5 person CHAPINCITO SOTO [phone], CHAN [phone]. 22:17 Reassessment: Lucretia [phone], FRIEND. tl2 22:25 Reassessment: Patient appears in no apparent distress at this time. transferred to Room rr5 428. vitally stable. Vital Signs: 19:18 BP 124 / 73; Pulse 82; Resp 16; Temp 98.2; Pulse Ox 100% ; rr5 20:00 BP 120 / 65; Pulse 78; Resp 18; Pulse Ox 98% on R/A; tl2 20:52 BP 125 / 70; Pulse 81; Resp 18; Pulse Ox 98% on R/A; tl2 21:30 BP 116 / 64; Pulse 78; Resp 15; Pulse Ox 100% ; rr5 22:08 BP 117 / 62; Pulse 75; Resp 16; Pulse Ox 99% ; rr5 [place] Coma Score: 19:18 Eye Response: spontaneous(4). Verbal Response: confused(4). Motor Response: obeys rr5 commands(6). Total: 14. ED Course: 19:17 Patient arrived in ED. rr5 19:18 Giovanni Ferrera, ALEXI is Primary Nurse. rr5 19:18 Maintain EMS IV. Dressing intact. Good blood return noted. Site clean \T\ dry. Gauge \T\ rr 5 site: G20 left forearm. 19:19 Abraham Quiroga MD is Attending Physician. ps1 19:20 Arm band placed on. EKG completed in triage. Results shown to MD. rr5 19:20 Patient has correct armband on for positive identification. Placed in gown. Bed in low rr5 position. Call light in reach. Side rails up X2. Adult w/ patient. home help aide on. Pulse ox on. NIBP on. 19:20 Warm blanket given. rr5 19:25 Triage completed. rr5 19:26 EKG done, by ED staff, reviewed by Abraham Quiroga MD. ag4 20:49 Phyllis To MD is Hospitalizing Provider. ps1 21:55 Patient moved to NV via stretcher. vm2 22:04 CT completed. Patient tolerated procedure well. Patient moved back from NV. nj 22:07 No provider procedures requiring assistance completed. Patient admitted, IV remains in rr5 place. intact, No redness/swelling at site. 22:15 Straight cath inserted, using sterile technique, 16 Fr. Specimen obtained. Returned rr5 clear yellow urine. Patient tolerated well. inserted by angelica TRUONG. 22:48 Urine Microscopic Only Sent. rr5 Administered Medications: 19:35 Drug: Zofran 4 mg Route: IVP; Site: left forearm; rr5 22:47 Follow up: Response: No adverse reaction rr5 19:37 Drug: NARcan 2 mg Route: IVP; Site: left forearm; rr5 22:48 Follow up: Response: No adverse reaction rr5 19:38 Drug: Lactulose 20 grams Volume: 30 ml; Route: PO; rr5 22:48 Follow up: Response: No adverse reaction rr5 20:35 Drug: Lactulose 20 grams Volume: 30 ml; Route: PO; rr5 22:47 Follow up: Response: No adverse reaction rr5 Outcome: 20:50 Decision to Hospitalize by Provider. ps1 22:28 Admitted to Tele accompanied by tech, room 402, with chart, Report called to KIM [email or web address] 22:28 Condition: stable 22:28 Instructed on the need for admit. 22:48 Patient left the ED. rr5 Signatures: Charla Watson RN RN tl2 Des Thao Victoria 2 Abraham Quiroga MD MD ps1 Giovanni Ferrera RN RN rr5 Mahin Alva4
--- NOTE | 2018-04-11 20:50 | EDPHYS ---
Physician Documentation [facility] Name: Jami Brewer Age: 57 yrs Sex: Female : 1960 Arrival Date: 04/11/2018 Time: 19:17 Bed 3 Private MD: ED Physician Abraham Quiroga HPI: 04/11 19:28 This 57 yrs old Female presents to ER via EMS with complaints of disoriented. ps1 19:28 patient from [facility], has a history recent pinning of hip. Presenting ps1 alert but disoriented. Answering basic questions. Has a history of alcoholic cirrhosis. No fever. BIBEMS for acting lethargic. ROS limited 2/2 patients condition. . Historical: - Allergies: 20:04 No Known Allergies; rr5 - Home Meds: 19:28 pantoprazole oral oral [Active]; rr5 20:02 propranolol 20 mg Oral tab [Active]; sucralfate 1 gram Oral tab 1 tab 4 times per day rr5 [Active]; tramadol 50 mg Oral tab [Active]; Xifaxan 550 mg oral tab [Active]; Aldactone 50 mg Oral tab [Active]; gabapentin 300 mg oral cap [Active]; lactulose 10 gram/15 mL Oral soln [Active]; lidocaine adhesive patch [Active]; melatonin 5 mg tablet [Active]; docusate sodium [Active]; ensure supplement [Active]; Lasix 40 mg Oral tab [Active]; Lexapro Oral [Active]; Seroquel 25 mg Oral tab [Active]; sodium polystyrene sulfonate oral oral [Active]; Tamiflu 75 mg Oral cap [Active]; Veltassa oral oral [Active]; - PMHx: 19:28 Cirrhosis; Depression; Hypertension; Ulcers; rr5 - PSHx: 19:28 left hip surgery; rr5 - Immunization history:: Adult Immunizations unknown. - Social history:: Smoking status: unknown. - Ebola Screening: : Unable to complete screening because. ROS: 19:28 Unable to obtain ROS due to altered mental status. ps1 Exam: 19:28 Constitutional: This is a well developed, well nourished patient who is awake, alert, ps1 and in no acute distress. Head/Face: Normocephalic, atraumatic. Eyes: Pupils equal round and reactive to light, extra-ocular motions intact. Lids and lashes normal. Conjunctiva and sclera are non-icteric and not injected. Chest/axilla: Normal chest wall appearance and motion. Nontender with no deformity. No lesions are appreciated. Cardiovascular: Regular rate and rhythm. No gallops, murmurs, or rubs. Normal PMI, no JVD. No pulse deficits. Respiratory: Lungs have equal breath sounds bilaterally, clear to auscultation and percussion. No rales, rhonchi or wheezes noted. No increased work of breathing, no retractions or nasal flaring. Abdomen/GI: Soft, non-tender, with normal bowel sounds. No distension or tympany. No guarding or rebound. No evidence of tenderness throughout. MS/ Extremity: Pulses equal, no cyanosis. Neurovascular intact. Full, normal range of motion. Post surgical changes in left hip. Appears to be healing well. Psych: Awake, alert, with orientation to person, place and time. Behavior, mood, and affect are within normal limits. 19:28 Neuro: Orientation: Not oriented to time, situation, Mentation: slow to respond, confused, Memory: immediate memory is impaired, recent memory is impaired, Cranial nerves: grossly normal, Cerebellar function: is grossly normal. Vital Signs: 19:18 BP 124 / 73; Pulse 82; Resp 16; Temp 98.2; Pulse Ox 100% ; rr5 20:00 BP 120 / 65; Pulse 78; Resp 18; Pulse Ox 98% on R/A; tl2 20:52 BP 125 / 70; Pulse 81; Resp 18; Pulse Ox 98% on R/A; tl2 21:30 BP 116 / 64; Pulse 78; Resp 15; Pulse Ox 100% ; rr5 22:08 BP 117 / 62; Pulse 75; Resp 16; Pulse Ox 99% ; rr5 [place] Coma Score: 19:18 Eye Response: spontaneous(4). Verbal Response: confused(4). Motor Response: obeys rr5 commands(6). Total: 14. MDM: 19:52 Patient medically screened. ps1 04/11 19:35 Order name: Acetaminophen; Complete Time: 20:39 ps1 04/11 19:35 Order name: Basic Metabolic Panel; Complete Time: 20:39 ps1 04/11 19:35 Order name: CBC with Diff; Complete Time: 20:51 ps1 04/11 19:35 Order name: ETOH Level; Complete Time: 20:39 ps1 04/11 19:35 Order name: Hepatic Function; Complete Time: 20:39 ps1 04/11 19:35 Order name: PT-INR; Complete Time: 20:25 ps1 04/11 19:35 Order name: Ptt, Activated; Complete Time: 20:25 ps1 04/11 19:35 Order name: Salicylate; Complete Time: 20:39 ps1 04/11 19:35 Order name: Urine Drug Screen ps1 04/11 20:00 Order name: AMMONIA; Complete Time: 20:25 tl2 04/11 20:17 Order name: CBC Smear Scan; Complete Time: 20:51 EDMS 04/11 21:53 Order name: Ct Stroke Brain Wo Cont EDMS 04/11 22:46 Order name: Urine Microscopic Only rr5 04/11 19:35 Order name: EKG; Complete Time: 19:35 ps1 04/11 19:35 Order name: EKG - Nurse/Tech; Complete Time: 19:43 ps1 04/11 19:35 Order name: IV Saline Lock; Complete Time: 19:43 ps1 04/11 19:35 Order name: Labs collected and sent; Complete Time: 19:43 ps1 04/11 22:46 Order name: Straight Cath - Urine; Complete Time: 22:47 rr5 Administered Medications: 19:35 Drug: Zofran 4 mg Route: IVP; Site: left forearm; rr5 22:47 Follow up: Response: No adverse reaction rr5 19:37 Drug: NARcan 2 mg Route: IVP; Site: left forearm; rr5 22:48 Follow up: Response: No adverse reaction rr5 19:38 Drug: Lactulose 20 grams Volume: 30 ml; Route: PO; rr5 22:48 Follow up: Response: No adverse reaction rr5 20:35 Drug: Lactulose 20 grams Volume: 30 ml; Route: PO; rr5 22:47 Follow up: Response: No adverse reaction rr5 Disposition: 04/11/18 20:50 Hospitalization ordered by Phyllis To for Observation. Preliminary diagnosis are Hyperammonemia, Hepatic encephalopathy, Altered mental status. - Bed requested for Telemetry/MedSurg (observation). - Status is Observation. rr5 - Condition is Fair. - Problem is an acute exacerbation. - Symptoms have improved. UTI on Admission? No Signatures: Dispatcher [employer] EDArgelia Howard, RN RN cg Abraham Quiroga MD MD ps1 Giovanni Ferrera RN RN rr5 Corrections: (The following items were deleted from the chart) 19:34 19:28 Constitutional: This is a well developed, well nourished patient who is awake, ps1 alert, and in no acute distress. Head/Face: Normocephalic, atraumatic. Eyes: Pupils equal round and reactive to light, extra-ocular motions intact. Lids and lashes normal. Conjunctiva and sclera are non-icteric and not injected. Chest/axilla: Normal chest wall appearance and motion. Nontender with no deformity. No lesions are appreciated. Cardiovascular: Regular rate and rhythm. No gallops, murmurs, or rubs. Normal PMI, no JVD. No pulse deficits. Respiratory: Lungs have equal breath sounds bilaterally, clear to auscultation and percussion. No rales, rhonchi or wheezes noted. No increased work of breathing, no retractions or nasal flaring. Abdomen/GI: Soft, non-tender, with normal bowel sounds. No distension or tympany. No guarding or rebound. No evidence of tenderness throughout. MS/ Extremity: Pulses equal, no cyanosis. Neurovascular intact. Full, normal range of motion. Psych: Awake, alert, with orientation to person, place and time. Behavior, mood, and affect are within normal limits. ps1 21:45 20:50 Hospitalization Ordered by Phyllis To MD for Observation. Preliminary cg diagnosis is Hyperammonemia; Hepatic encephalopathy; Altered mental status. Bed requested for Telemetry/MedSurg (observation). Status is Observation. Condition is Fair. Problem is an acute exacerbation. Symptoms have improved. UTI on Admission? No. ps1 22:48 21:45 04/11/2018 20:50 Hospitalization Ordered by Phyllis To MD for Observation. rr5 Preliminary diagnosis is Hyperammonemia; Hepatic encephalopathy; Altered mental status. Bed requested for Telemetry/MedSurg (observation). Status is Observation. Condition is Fair. Problem is an acute exacerbation. Symptoms have improved. UTI on Admission? No. cg
--- NOTE | 2018-04-11 21:50 | P.HP ---
Certification for Inpatient Patient admitted to: Inpatient With expected LOS: >2 Midnights Practitioner: I am a practitioner with admitting privileges, knowledge of patient current condition, hospital course, and medical plan of care. Services: Services provided to patient in accordance with Admission requirements found in Title 42 Section 412.3 of the Code of Federal Regulations Patient History Date of Service: 04/11/18 Reason for admission: hepatic encephalopathy History of Present Illness: Ms Brewer is a 57 years old woman with history of HTN, alcoholic cirrhosis, resident of a local prison, who start this afternoon to be more confused and sleepy than usual. No history of fever, chills, head trauma. Her lactulose dose was increased last week because high ammonia level. Lab work remarkable for elevated ammonia level 104, normal WBC count, elevated BUN and creatinine. No obvious signs of active infection. She looks clinically dry. Allergies No Known Allergies Allergy (Uncoded 09/01/16 01:05) Unknown - Past Medical/Surgical History Has patient received pneumonia vaccine in the past: Yes -: alcoholic cirrhosis -: HTN -: hip fracture - Family History Family History: Reviewed- Non-Contributory - Social History Smoking Status: Current some day smoker Alcohol use: Yes CD- Drugs: No Place of Residence: Assisted Review of Systems 10-point ROS is otherwise unremarkable Physical Examination - Physical Exam General: In no apparent distress, Other (obtunded, jaundice.) HEENT: Atraumatic, PERRLA, Mucous membr. moist/pink, Sclerae nonicteric, Scleral icterus Neck: Supple, 2+ carotid pulse no bruit, No LAD, Without JVD or thyroid abnormality Respiratory: Clear to auscultation bilaterally, Normal air movement Cardiovascular: Regular rate/rhythm, Normal S1 S2 Gastrointestinal: Normal bowel sounds, No tenderness Musculoskeletal: No tenderness Integumentary: No rashes Neurological: Normal strength at 5/5 x4 extr, Normal tone, Normal affect, Abnormal speech (slurred speech) Lymphatics: No axilla or inguinal lymphadenopathy - Studies Laboratory Data (last 24 hrs) 04/11/18 19:15: PT 15.5 H, INR 1.33, APTT 30.2 04/11/18 19:15: WBC 7.6, Hgb 9.8 L, Hct 28.7 L, Plt Count 146 L 04/11/18 19:15: Sodium 139, Potassium 4.6, BUN 61 H, Creatinine 1.73 H, Glucose 92, Total Bilirubin 2.2 H, AST 45 H, ALT 40, Alkaline Phosphatase 108 Assessment and Plan - Problems (Diagnosis) (1) Alcoholic cirrhosis of liver Current Visit: Yes Status: Acute Qualifiers: Ascites presence: unspecified Qualified Code(s): K70.30 - Alcoholic cirrhosis of liver without ascites (2) Hepatic encephalopathy Current Visit: Yes Status: Acute (3) Acute renal injury Current Visit: Yes Status: Acute - Plan Will admit the patient to the hospital due to altered mental status, likely due to hepatic encephalopathy. Will order CT head wo contrast, start oral lactulose , Rifaximin. Start IV fluids for volume depletion which may play a role in her AMS. - Advance Directives Does patient have a Living Will: No Does patient have a Durable POA for Healthcare: No - Code Status/Comfort Care Code Status Assessed: Yes Code Status: Full Code
[2018-04-11] MEDS ORDERED: ONDANSETRON 4 MG/2 ML VIAL IV PRN (22:52)
[2018-04-11] MEDS: NA CHLORIDE 0.9% 1,000 ML IV SCH (23:19)
[2018-04-11 23:33] LABS: Barbiturates NEGATIVE (NEGATIVE); Benzodiazepines NEGATIVE (NEGATIVE); Cocaine NEGATIVE (NEGATIVE); METHAMPHETAM NEGATIVE (NEGATIVE); Methadone NEGATIVE (NEGATIVE); Opiates NEGATIVE (NEGATIVE); Phencyclidine NEGATIVE (NEGATIVE); THC Cannibis NEGATIVE (NEGATIVE)
[2018-04-11 23:50] LABS: Urine Bacteria LOADED /HPF (<20); Urine Culture Reflex Order REFLEXED
[2018-04-11 23:51] LABS: Urine Blood 3+ (NEG); Urine Glucose NEGATIVE (NEG); Urine Protein 2+ (NEG)
[2018-04-12 01:26] VITALS: BMI 19.7
[2018-04-12 04:13] LABS: Absolute Lymphocytes (CBC) 1.5 K/uL (0.7-4.9); Absolute Monocytes 0.8 K/uL (0.1-1.3); Absolute Neutrophil 3.7 K/uL (1.8-8.0); Basophils % 1.1 % (0-1.3); Eosinophils % 11.3 % (0-4.4); Hematocrit 29.2 % (36.0-45.0); Lymphocytes % 22.4 % (15.3-44.8); MPV 8.6 fL (7.6-11.3); Monocytes % 11.4 % (3.3-12.3); RBC Red Blood Cell Count 2.72 M/uL (3.86-4.86)
[2018-04-12 04:53] LABS: Albumin 3.3 g/dL (3.4-5.0); Bilirubin Total 2.3 mg/dL (0.2-1.0); Potassium 4.7 mmol/L (3.5-5.1); Protein, Total 8.7 g/dL (6.4-8.2)
--- NOTE | 2018-04-12 05:54 | EKG ---
Test Date: 2018-04-11 Test Time: 19:19:26 Realtime Reporter: AG3 MEASUREMENT RESULTS: Intervals: Rate: 80 CA: 176 QRSD: 80 QT: 364 QTc: 419 [place]: P: 67 CA: 176 QRS: 73 T: 69 INTERPRETIVE STATEMENTS: Normal sinus rhythm Anterior infarct, age undetermined Abnormal ECG Compared to ECG 02/07/2018 13:06:26 Myocardial infarct finding now present Sinus tachycardia no longer present Electronically Signed On 04-12-18 05:53:20 MACHINE EDGE BANDER by Hu Dent
[2018-04-12] MEDS ORDERED: Rifaximin 550 MG Tab PO SCH (09:00)
[2018-04-12] MEDS: LACTULOSE 20 GM/30 ML UCUP PO SCH ×4 (09:39→20:40)
[2018-04-12] MEDS: NA CHLORIDE 0.9% 1,000 ML IV SCH ×2 (09:46→18:28)
--- NOTE | 2018-04-12 09:52 | RAD REPORT ---
EXAM DESCRIPTION: US - Abdomen Exam Complete - 04/12/2018 9:17 am CLINICAL HISTORY: Cirrhosis, renal disease COMPARISON: CT imaging February 07, 2018, limited abdomen ultrasound August 2016, CT study August 2016 FINDINGS: Gallbladder size is normal. Multiple echogenic foci are present in the gallbladder lumen n ot demonstrating posterior acoustic shadowing. These could be nonshadowing stones or tumefactive slud ge. Common bile duct is normal with no common duct stone identified. Liver is grossly abnormal there liver is 14 cm in maximum dimension with a pronounced capsular nodularity and coarsened, increased pa renchymal echogenicity. This of gross is pattern has been previously detailed. A suspicious liver les ion is not identified. Spleen is 11 cm. There is a nodular contour but no focal splenic lesion. The p ancreas is grossly normal but partially obscured. Doppler evaluation shows normal velocity and flow direction of the portal vein. No portal vein thromb us. No hydronephrosis or suspicious mass in either kidney. The anterior midportion of the left kidney bashir ws a lobulated contour. This is believed to be normal parenchyma. Similar pattern is seen back to 201 7. Renal cortical echogenicity is increased in both kidneys. Aorta and IVC show no suspicious findings. No measurable ascites. IMPRESSION: Prominent cirrhotic liver pattern without new or suspicious parenchymal lesion. Probable tumefactive sludge within the gallbladder lumen. No biliary tree abnormality. Increased renal parenchymal echogenicity consistent with medical renal disease. No suspicious renal l esion. No splenomegaly. No measurable ascites.
--- NOTE | 2018-04-12 10:18 | RAD REPORT ---
ADDENDUM #1 Addendum: Findings were discussed with Dr. Quiroga at 2226 hours 04/11/2018. Electronically signed by: Abel Bryant 04/11/2018 10:27 PM INTERNATIONAL TAX MANAGER End of Addendum EXAM DESCRIPTION: Ct Stroke Brain Wo Cont CLINICAL HISTORY: Altered mental status COMPARISON: None Available TECHNIQUE: Contiguous axial CT images of the head were obtained. Coronal and sagittal reconstructions were created from the axial data. This exam was performed according to our departmental dose-optimization program, which includes autom ated exposure control, adjustment of the mA and/or kV according to patient size and/or use of iterati ve reconstruction technique. FINDINGS: There is no evidence of acute mass, mass effect, midline shift or hemorrhage. The ventricl es and extra-axial CSF spaces are unremarkable. The brain parenchyma appears normal for the patient's age. No acute abnormalities of the bones is seen. IMPRESSION: No acute intracranial abnormality. Electronically signed by: Abel Bryant 04/11/2018 10:16 PM INTERNATIONAL TAX MANAGER Due to temporary technical issues with the PACS/Fluency reporting system, reports are being signed by the in house radiologist as a courtesy to ensure prompt reporting. The interpreting radiologist is f ully responsible for the content of the report.
--- NOTE | 2018-04-12 12:46 | P.PN ---
Subjective Date of Service: 04/12/18 Primary Care Provider: [facility]dc Chief Complaint: hepatic encephalopathy Subjective: Other (confused. family present.) Physical Examination - Vital Signs Temperature: 97.5 F Blood Pressure: 137/68 Pulse: 84 Respirations: 16 Pulse Ox (%): 95 - Physical Exam General: Alert, Confused, Other (Able to converse but confused) HEENT: Atraumatic Neck: Supple Respiratory: Clear to auscultation bilaterally, Normal air movement Cardiovascular: Normal pulses, Regular rate/rhythm Gastrointestinal: Normal bowel sounds, Soft and benign, Non-distended, No ascites, No tenderness, No masses, No rebound, No guarding Musculoskeletal: No erythema, No tenderness, No warmth Neurological: Normal speech, Normal strength at 5/5 x4 extr, Normal tone, Other (Confused) - Studies Laboratory Data (last 24 hrs) 04/11/18 19:15: PT 15.5 H, INR 1.33, APTT 30.2 04/11/18 19:15: WBC 7.6, Hgb 9.8 L, Hct 28.7 L, Plt Count 146 L 04/11/18 19:15: Sodium 139, Potassium 4.6, BUN 61 H, Creatinine 1.73 H, Glucose 92, Total Bilirubin 2.2 H, AST 45 H, ALT 40, Alkaline Phosphatase 108 Medications List Reviewed: Yes Assessment & Plan Discharge Plan: Prison Plan to discharge in: Greater than 2 days - Code Status/Comfort Care Code Status Assessed: Yes (Patient is do not resuscitate as per medical power of railroad crane operator) Physician Review Additional Text: Impression: Hepatic encephalopathy with noted liver cirrhosis Acute on chronic kidney disease, stage IV Anemia of chronic disease with thrombocytopenia likely related to liver cirrhosis Plan: Hepatic encephalopathy with noted liver cirrhosis: Patient is able to take oral lactulose. Will continue with oral lactulose to maintain adequate 3-4 stools per day. Case discussed at length with medical power of railroad crane operator. Over the last 3 months patient has been in the hospital frequently. Sometime in January patient was drinking heavily and fell and broke her left hip. She required transfer to higher level of care center. She had surgery at that time. She was released went back home but then fell after drinking again. She refractured her left hip. She was septic at that time and treated at a higher level center-[facility] [place]. She had repair of the left hip. Since that time she has been transferred to the [facility]dc. Her condition has declined. Medical power of railroad crane operator has considered hospice for the patient. Advanced directives address with medical power of railroad crane operator. Patient is DNR. Patient has [id number] DNR. Medical power of railroad crane operator requests hospice at discharge. Anticipate improvement with hepatic encephalopathy. Will continue to monitor closely. Patient appears dehydrated as well. Continue IV fluids. Will evaluate for infectious process. Acute on chronic kidney disease, stage IV: Continue IV fluids. Renal ultrasound shows chronic kidney disease. Case discussed with nephrology. Anemia of chronic disease with thrombocytopenia likely related to liver cirrhosis: Will obtain iron and B12 studies. Will monitor closely. Time Spent Managing Pts Care (In Minutes): 55
[2018-04-12 13:12] LABS: Ferritin 916.8 ng/mL (8-388); Transferrin 218 mg/dL (200-360)
--- NOTE | 2018-04-12 23:08 | P.CNS ---
Date of Consult: 04/12/18 Reason for Consult: [place] Primary Care Provider: jail Chief Complaint: hepatic encephalopathy History of Present Illness: pt is a poor historian, Hx obtained from chart A 57 years old woman [place] resident with PMhx of of HTN, alcoholic liver cirrhosis. pt was sent from [place] for lethargy and abnormal labs as per family pt was discharged recently from [facility] after she was treated for fracture, last Monday family queenie notified about abnormal labs ,(high cr of 1.7 , low Na and high K) as per daughter pt was started on IVF 50ml/hr in er Cr 1.7, ammonia 103, head Ct -ve currently poor oral intake, no nausea or vomiting unknwo if she had recent contrast exposure or taking NSAID Allergies No Known Allergies Allergy (Uncoded 09/01/16 01:05) Unknown Home Medications: Docusate Sodium 100 mg PO BIDP PRN 04/11/18 Escitalopram [Lexapro] 20 mg PO DAILY 04/11/18 Furosemide [Lasix] 40 mg PO BIDL 04/11/18 Gabapentin 100 mg PO BID 04/11/18 Gabapentin 300 mg PO BEDTIME 04/11/18 Lactose-Reduced Food [Ensure Liquid] 237 ml PO BID 04/11/18 Lactulose 10 gm PO BID 04/11/18 Melatonin 5 mg PO BEDTIME PRN PRN 04/11/18 Pantoprazole [Protonix Tab] 40 mg PO DAILY 04/11/18 Propranolol [Inderal] 20 mg PO Q6H 04/11/18 Rifaximin [Xifaxan] 550 mg PO BID 04/11/18 Spironolactone [Aldactone] 50 mg PO BID 04/11/18 Sucralfate [Carafate -Tab] 1 gm PO QID 04/11/18 Tramadol HCl [Ultram] 50 mg PO Q6HP PRN 04/11/18 - Past Medical/Surgical History Diabetic: No -: alcoholic cirrhosis -: HTN -: hip fracture - Social History Smoking Status: Unknown if ever smoked Alcohol use: Yes CD- Drugs: No Place of Residence: [facility] Physical Examination Temp Pulse Resp BP Pulse Ox 98.4 F 96 H 20 152/74 H 100 04/12/18 20:00 04/12/18 20:00 04/12/18 20:00 04/12/18 20:00 04/12/18 20:00 General: Alert, In no apparent distress, Oriented x2, Oriented x1 HEENT: Atraumatic, Normocephalic Neck: Supple, Without JVD or thyroid abnormality Respiratory: Clear to auscultation bilaterally, Normal air movement Cardiovascular: No edema, Regular rate/rhythm, Normal S1 S2 Gastrointestinal: Normal bowel sounds, Soft and benign, Non-distended Integumentary: No rashes - Problems (1) Acute renal injury Current Visit: Yes Status: Acute (2) Alcoholic cirrhosis of liver Current Visit: Yes Status: Acute Qualifiers: Ascites presence: unspecified Qualified Code(s): K70.30 - Alcoholic cirrhosis of liver without ascites (3) Hepatic encephalopathy Current Visit: Yes Status: Acute Conclusions/Impression: [place] Cr in jau0.9 and 1.8 now reason is unclear now, possibly prerenal vs HRS will cont IVF agree t hold lasix and aldacone renal US: echogenic kidneys UA: +3 bld, +2 prot will send full serology W/u metabolic encephlopathy imprving now cont lactulose anemia Iron sat>20, b12 ok fu folate will send SPEP, UPEP +ve UA f/u procal hold BAx for now will decide as per culture results
[2018-04-13] MEDS: NA CHLORIDE 0.9% 1,000 ML IV SCH (06:07)
[2018-04-13 06:49] LABS: Urine Protein/Creatinine Ratio 1.68 ratio (<0.15)
[2018-04-13 07:38] LABS: Absolute Lymphocytes (CBC) 1.4 K/uL (0.7-4.9); Absolute Monocytes 0.4 K/uL (0.1-1.3); Absolute Neutrophil 2.5 K/uL (1.8-8.0); Basophils % 1.4 % (0-1.3); Hematocrit 29.2 % (36.0-45.0); Lymphocytes % 27.9 % (15.3-44.8); MPV 8.9 fL (7.6-11.3); Monocytes % 8.9 % (3.3-12.3); RBC Red Blood Cell Count 2.69 M/uL (3.86-4.86)
[2018-04-13 07:48] LABS: Albumin 3.2 g/dL (3.4-5.0); Bilirubin Total 2.3 mg/dL (0.2-1.0); Magnesium 1.5 mg/dL (1.8-2.4); Potassium 3.9 mmol/L (3.5-5.1); Protein, Total 8.6 g/dL (6.4-8.2)
[2018-04-13 07:51] LABS: Rheumatoid Factor NEG (NEG)
[2018-04-13] MEDS: LACTULOSE 20 GM/30 ML UCUP PO SCH ×4 (08:01→20:08)
[2018-04-13 08:30] LABS: Creatine Phosphokinase 21 U/L (26-192); Folic Acid, (Folate) > 20.0 ng/mL (3.1-17.5); Uric Acid 8.8 mg/dL (2.6-6.0)
[2018-04-13] MEDS ORDERED: Magnesium Sulfate 2gm IVPB 2 G/50 ML BAG IV ONE (10:43)
--- NOTE | 2018-04-13 11:39 | P.PN ---
Subjective Date of Service: 04/13/18 Primary Care Provider: custodial Chief Complaint: hepatic encephalopathy Subjective: Improving Physical Examination - Vital Signs Temperature: 97.0 F Blood Pressure: 156/69 Pulse: 87 Respirations: 18 Pulse Ox (%): 100 - Physical Exam General: Alert, Cooperative HEENT: Atraumatic Neck: Supple Respiratory: Clear to auscultation bilaterally, Normal air movement Cardiovascular: Normal pulses, Regular rate/rhythm Gastrointestinal: Normal bowel sounds, Soft and benign, Non-distended, No ascites, No tenderness, No masses, No rebound, No guarding Musculoskeletal: No erythema, No tenderness, No warmth Neurological: Normal speech, Normal strength at 5/5 x4 extr, Normal tone, Normal affect - Studies Medications List Reviewed: Yes Assessment & Plan Discharge Plan: Senior Living Plan to discharge in: 48 Hours Physician Review Additional Text: Impression: Hepatic encephalopathy with noted liver cirrhosis Acute on chronic kidney disease, stage IV Anemia of chronic disease with thrombocytopenia likely related to liver cirrhosis Asymptomatic bacteruria Plan: Hepatic encephalopathy with noted liver cirrhosis: Patient has improved. Ammonia level has decreased. Continue with oral lactulose to maintain adequate 3-4 stools per day. Will have physical therapy assess ambulation. Case discussed at length with medical power of trial attorney yesterday. Over the last 3 months patient has been in the hospital frequently. Sometime in January patient was drinking heavily and fell and broke her left hip. She required transfer to higher level of care center. She had surgery at that time. She was released went back home but then fell after drinking again. She refractured her left hip. She was septic at that time and treated at a higher level center-[facility]. She had repair of the left hip. Since that time she has been transferred to the custodial. Her condition has declined. Medical power of trial attorney has considered hospice for the patient. Advanced directives address with medical power of trial attorney. Patient is DNR. Patient has [id number] DNR. Medical power of trial attorney requests hospice at discharge. Anticipate improvement with hepatic encephalopathy. Once improved patient can return to custodial. Will need to determine if the patient is therefore skilled placement for long-term. If long-term hospice can be arranged. Acute on chronic kidney disease, stage IV: Continue IV fluids. Renal ultrasound shows chronic kidney disease. Case discussed with nephrology. Continue Nephrology recommendations. Anemia of chronic disease with thrombocytopenia likely related to liver cirrhosis: Continue monitor closely. Asymptomatic bacteruria: Pro calcitonin negative. Will monitor closely. No need for antibiotic therapy at this time. White count also normal. Time Spent Managing Pts Care (In Minutes): 55
--- NOTE | 2018-04-13 12:39 | P.PN ---
Subjective Date of Service: 04/13/18 Primary Care Provider: senior living Chief Complaint: hepatic encephalopathy Subjective: Improving More alert today Cr stable NAGMA ; diarrhea and saline induced will change fluid to R/l Cont Pt/OT F/U serology W/U Physical Examination - Vital Signs Temperature: 97.0 F Blood Pressure: 156/69 Pulse: 87 Respirations: 18 Pulse Ox (%): 100 - Physical Exam General: Alert, In no apparent distress HEENT: Atraumatic Neck: Supple, JVD not distended, Without JVD or thyroid abnormality Respiratory: Clear to auscultation bilaterally, Normal air movement Cardiovascular: No edema, Regular rate/rhythm, Normal S1 S2 Gastrointestinal: Normal bowel sounds, Soft and benign - Studies Medications List Reviewed: Yes Assessment And Plan - Current Problems (Diagnosis) (1) Acute renal injury Current Visit: Yes Status: Acute (2) Alcoholic cirrhosis of liver Current Visit: Yes Status: Acute Qualifiers: Ascites presence: unspecified Qualified Code(s): K70.30 - Alcoholic cirrhosis of liver without ascites (3) Hepatic encephalopathy Current Visit: Yes Status: Acute - Plan [place] Cr in jau0.9 plateauing at 1.7 likely prerenal will cont IVF agree t hold lasix and aldacone renal US: echogenic kidneys UA: +3 bld, +2 prot F/U serology W/u metabolic encephlopathy improving now cont lactulose anemia Iron sat>20, b12 ok Folate ok will send SPEP, UPEP UTI f/u procal will start on Rocephin
[2018-04-13] MEDS: Ringers Lactate 1,000 ML IV SCH (13:01)
[2018-04-13] MEDS: CEFTRIAXONE/SWI 1gm 1 GM/10 ML SYR IVP SCH (13:03)
[2018-04-13] MEDS ORDERED: POTASSIUM CL SA 10 MEQ TAB PO ONE (14:00)
[2018-04-14] MEDS: Ringers Lactate 1,000 ML IV SCH (00:06)
[2018-04-14] MEDS ORDERED: MAGNESIUM SULFATE 1 gm IVPB 1 GM/100 ML BAG IV ONE (01:00)
[2018-04-14 04:39] VITALS: O2SAT 97
[2018-04-14 06:59] LABS: Absolute Lymphocytes (CBC) 1.3 K/uL (0.7-4.9); Absolute Monocytes 0.5 K/uL (0.1-1.3); Absolute Neutrophil 3.5 K/uL (1.8-8.0); Basophils % 0.8 % (0-1.3); Eosinophils % 11.1 % (0-4.4); Hematocrit 28.3 % (36.0-45.0); Lymphocytes % 21.9 % (15.3-44.8); MPV 8.6 fL (7.6-11.3); Monocytes % 8.8 % (3.3-12.3); RBC Red Blood Cell Count 2.67 M/uL (3.86-4.86)
[2018-04-14 07:02] LABS: Albumin 3.2 g/dL (3.4-5.0); Protein, Total 8.4 g/dL (6.4-8.2)
[2018-04-14] MEDS: CEFTRIAXONE/SWI 1gm 1 GM/10 ML SYR IVP SCH (09:30)
[2018-04-14] MEDS: LACTULOSE 20 GM/30 ML UCUP PO SCH ×2 (09:30→13:19)
--- NOTE | 2018-04-14 11:58 | P.DS ---
Admission Date: 04/11/18 Discharge Date: 04/14/18 Primary Care Provider: care home Disposition: TRANSFER TO SENIOR CARE Discharge Condition: GOOD Reason for Admission: hepatic encephalopathy Consultations: Nephrology-Dr. Melendez Procedures: Medical Problem List: Hepatic encephalopathy with noted liver cirrhosis Acute on chronic kidney disease, stage IV Anemia of chronic disease with thrombocytopenia likely related to liver cirrhosis Asymptomatic bacteruria, urine culture-E coli-ESBL, no need for treatment Depression Brief History of Present Illness: 57-year-old female presented emergency room with hepatic encephalopathy. Patient was admitted for treatment. Hospital Course: Patient admitted for herpetic encephalopathy with known liver cirrhosis. Patient appeared dehydrated upon admission. Over the last 3 months patient has been in the hospital frequently. Sometime in January patient was drinking heavily and fell and broke her left hip. She required transfer to higher level of care center. She had surgery at that time. She was released went back home but then fell after drinking again. She refractured her left hip. She was septic at that time and [place] [place] had repair of the left hip. Since that time she has been transferred to the care home. During hospitalization the patient improved. Patient now back to baseline. She is alert. At discharge she will continue with lactulose 4 times a day to maintain 3-4 bowel movements per day. Patient will also continue with Xifaxan 550 mg 1 pill twice daily and Protonix 40 mg daily. Patient will continue with a 1500 cc per day fluid restriction. Advanced directives readdressed. Patient wishes to be full code. This was discussed in detail with medical power of deputy commonwealth's attorney. Patient not ready for hospice at this time. Patient is committed to no longer drinking alcohol. She plans to improve and go back and see hepatology for possible treatment in the future. At discharge patient will return to the care home for long-term placement. This can be further addressed by the patient and her medical power of deputy commonwealth's attorney in the future. Patient with acute on chronic kidney disease stage 4. Patient receive IV fluids. Renal function stable. Patient seen by nephrology. No intervention needed at this time. Patient with anemia of chronic disease with thrombocytopenia related to liver cirrhosis. This has remained stable. This can be monitored closely at the care home. Patient also had asymptomatic bacteriuria. Pro calcitonin negative. Urinalysis showed no bacteria. Urine culture positive for E coli-ESBL. Case discussed at length with nephrology. After review of lab and since the patient was asymptomatic upon admission and during her stay, no need for treatment at this time. UTI prevention will need to be enforced. Patient with depression. Patient may continue with Lexapro 20 mg daily. Vital Signs/Physical Exam: Temp Pulse Resp BP Pulse Ox 97.9 F 81 16 142/66 H 100 04/14/18 08:00 04/14/18 08:00 04/14/18 08:00 04/14/18 08:00 04/14/18 08:00 General: Alert, In no apparent distress, Oriented x3, Cooperative HEENT: Atraumatic Neck: Supple Respiratory: Clear to auscultation bilaterally, Normal air movement Cardiovascular: Normal pulses, Regular rate/rhythm Gastrointestinal: Normal bowel sounds, Soft and benign, Non-distended, No tenderness, No masses, No rebound, No guarding Musculoskeletal: No erythema, No tenderness, No warmth Integumentary: No tenderness/swelling, No erythema, No warmth, No cyanosis Neurological: Normal speech, Normal strength at 5/5 x4 extr, Normal tone, Normal affect Laboratory Data at Discharge: WBC 6.1 K/uL (4.3-10.9) D 04/14/18 06:14 Hgb 10.0 g/dL (12.0-15.0) L 04/14/18 06:14 Hct 28.3 % (36.0-45.0) L 04/14/18 06:14 Plt Count 129 K/uL (152-406) L 04/14/18 06:14 PT 15.5 SECONDS (9.5-12.5) H 04/11/18 19:15 INR 1.33 04/11/18 19:15 APTT 30.2 SECONDS (24.3-36.9) 04/11/18 19:15 Sodium 136 mmol/L (136-145) 04/14/18 06:14 Potassium 4.0 mmol/L (3.5-5.1) 04/14/18 06:14 BUN 35 mg/dL (7-18) H 04/14/18 06:14 Creatinine 1.64 mg/dL (0.55-1.3) H 04/14/18 06:14 Glucose 90 mg/dL (74-106) 04/14/18 06:14 Uric Acid 8.8 mg/dL (2.6-6.0) H 04/13/18 07:07 Magnesium 2.0 mg/dL (1.8-2.4) 04/14/18 06:14 Total Bilirubin 2.0 mg/dL (0.2-1.0) H 04/14/18 06:14 AST 48 U/L (15-37) H 04/14/18 06:14 ALT 40 U/L (12-78) 04/14/18 06:14 Alkaline Phosphatase 116 U/L (45-117) 04/14/18 06:14 Home Medications: Docusate Sodium 100 mg PO BIDP PRN 04/11/18 Escitalopram [Lexapro*] 20 mg PO DAILY 04/11/18 Pantoprazole [Protonix Tab*] 40 mg PO DAILY 04/11/18 Rifaximin [Xifaxan*] 550 mg PO BID 04/11/18 Lactulose [Cephulac*] 30 ml PO QID #1 bottle 04/14/18 New Medications: Lactulose [Cephulac*] 30 ml PO QID #1 bottle Patient Discharge Instructions: 1. Patient will return to the care home. 2. Patient admitted for herpetic encephalopathy with known liver cirrhosis. Patient appeared dehydrated upon admission. Over the last 3 months patient has been in the hospital frequently. Sometime in January patient was drinking heavily and fell and broke her left hip. She required transfer to higher level of care center. She had surgery at that time. She was released went back home but then fell after drinking again. She refractured her left hip. She was septic at that time and [place] [place] had repair of the left hip. Since that time she has been transferred to the care home. During hospitalization the patient improved. Patient now back to baseline. She is alert. At discharge she will continue with lactulose 4 times a day to maintain 3-4 bowel movements per day. Patient will also continue with Xifaxan 550 mg 1 pill twice daily and Protonix 40 mg daily. Patient will continue with a 1500 cc per day fluid restriction. Advanced directives readdressed. Patient wishes to be full code. This was discussed in detail with medical power of deputy commonwealth's attorney. Patient not ready for hospice at this time. Patient is committed to no longer drinking alcohol. She plans to improve and go back and see hepatology for possible treatment in the future. At discharge patient will return to the care home for long-term placement. This can be further addressed by the patient and her medical power of deputy commonwealth's attorney in the future. 3. Patient with acute on chronic kidney disease stage 4. Patient receive IV fluids. Renal function stable. Patient seen by nephrology. No intervention needed at this time. 4. Patient with anemia of chronic disease with thrombocytopenia related to liver cirrhosis. This has remained stable. This can be monitored closely at the care home. 5. Patient also had asymptomatic bacteriuria. Pro calcitonin negative. Urinalysis showed no bacteria. Urine culture positive for E coli-ESBL. Case discussed at length with nephrology. After review of lab and since the patient was asymptomatic upon admission and during her stay, no need for treatment at this time. UTI prevention will need to be enforced. 6. Patient with depression. Patient may continue with Lexapro 20 mg daily. Diet: Renal Activity: Fall precautions Time spent managing pt's care (in minutes): 55
[2018-04-14 12:11] VITALS: BP 154/73; TEMP 98.8
--- NOTE | 2018-04-14 16:35 | PN ---
Date of Progress Note: 04/14/2018 Subjective: The patient was admitted with altered mental status secondary to hepatic encephalopathy with acute kidney injury secondary to prerenal. Physical Examination: Vital Signs: Blood pressure 142/66, pulse of 81, afebrile. General: The patient had good urine output, voiding. Chest: Clear to auscultation. Heart: S1, S2 regular. Abdomen: Soft, nontender. Extremities: No edema. Laboratory Data: WBC 6.1, H and H 10/28.3, platelets 129. Sodium 136; potassium 4; bicarb 19; chlor zoifa 110; BUN 35; creatinine 1.6, trending down; GFR of 32; calcium 9.6; magnesium of 2. Current Medications: The patient is on include ceftriaxone SR, KCl. Assessment And Plan: 1.Acute kidney injury, normal size kidney, no obstruction, proteinuric, non-nephrotic, on recovery p hase. I am going to go ahead and discontinue IV fluid. 2.Non-anion gap metabolic acidosis secondary to IV fluid. Discontinue IV fluid. 3.Bacteriuria without any leukorrhea, asymptomatic. Culture positive, but the patient is completely asymptomatic. No leukocyte. Again, avoid treating this. It could be just contamination. We will follow up as outpatient. Patient cleared. 4.Hypokalemia. We will supplement. The patient cleared from the renal standpoint for discharge mandeep MARTI Voice ID: [id number] Report ID: [id number]
[2018-04-17 10:58] LABS: HIV 1/2 Antibody Diff Not indicated.; HIV AG/AB 4TH GEN Non-reactive (Non-reactive)
[2018-04-18 21:11] LABS: HBsAG Nonreactive (Nonreactive)
[2018-04-18 22:19] LABS: Albumin, (SPE) 3.8 g/dL (3.8-4.8); Alpha-1-Globulins 0.2 g/dL (0.2-0.3); Alpha-2-Globulins 0.5 g/dL (0.5-0.9); Gamma Globulins 2.7 g/dL (0.8-1.7); INTERPRETATION REPORT
[2018-04-19 09:24] LABS: P-ANCA Anti-Myeloperoxidase Ab <1.0 AI (<1.0)
== END 2018-04-14 14:25 | DRG 433 ==
LOC: ER 19:13 → ERHOLD 21:51 → 4TH 22:28
PROVIDERS: ADMIT Internal Medicine; ATTEND Family Medicine
DX: K70.30 Alcoholic cirrhosis of liver without ascites (principal); N17.9 Acute kidney failure, unspecified; N18.4 Chronic kidney disease, stage 4 (severe); E87.2 Acidosis; K72.90 Hepatic failure, unspecified without coma; F10.10 Alcohol abuse, uncomplicated; F17.210 Nicotine dependence, cigarettes, uncomplicated; I12.9 Hypertensive chronic kidney disease with stage 1 through stage 4 chronic kidney disease, or unspecified chronic kidney disease; D63.8 Anemia in other chronic diseases classified elsewhere; D69.6 Thrombocytopenia, unspecified; E86.0 Dehydration; E87.6 Hypokalemia; R82.71 Bacteriuria
CPT/HCPCS: 36415; 51702; 70450; 76700; 80048; 80053; 80076; 80307; 80320; 80329; 81003; 81015; 82140; 82550; 82570; 82607; 82728; 82746; 83520; 83540; 83735; 84145; 84156; 84165; 84439; 84443; 84466; 84550; 85025; 85610; 85730; 86021; 86038; 86160; 86334; 86335; 86430; 86803; 87040; 87077; 87086; 87088; 87186; 87340; 87389; 93005; 96374; 96375; 97163; 99291; J0696; J2310; J2405; J3475; J7030

== ENCOUNTER 2021-08-24 23:44 | Inpatient (IN) | payer OTHER ==
[2021-08-25] MEDS ORDERED: NA CHLORIDE 0.9% 1,000 ML ONE (00:21)
[2021-08-25 00:50] LABS: Hematocrit 36.3 % (36.0-45.0); MCV 101.7 fL (80-100); Protime INR 1.23; RBC Red Blood Cell Count 3.57 M/uL (3.86-4.86)
[2021-08-25 00:51] LABS: Absolute Lymphocytes (CBC) 0.9 K/uL (0.7-4.9); Lymphocytes % 10.6 % (15.3-44.8); MPV 8.1 fL (7.6-11.3)
[2021-08-25 00:58] LABS: Potassium 3.7 mmol/L (3.5-5.1)
[2021-08-25 01:01] LABS: Albumin 3.6 g/dL (3.4-5.0); Bilirubin Direct 0.5 mg/dL (0-0.2); Bilirubin Total 1.2 mg/dL (0.2-1.0)
--- NOTE | 2021-08-25 02:29 | EDPHYS ---
Physician Documentation [facility] Name: Jami Brewer Age: 61 yrs Sex: Female : 1960 Arrival Date: 08/24/2021 Time: 23:51 Bed 26 Private MD: ED Physician Blake Guzman HPI: 08/25 00:05 This 61 yrs old Female presents to ER via EMS with complaints of Fall Injury. cp 00:05 Details of fall: The patient fell from an upright position, while standing, and struck cp a tile surface. Onset: The symptoms/episode began/occurred just prior to arrival. Associated injuries: The patient sustained right upper leg, decreased range of motion, deformity, ecchymosis, painful injury. Severity of symptoms: in the emergency department the symptoms have improved, moderately. Patient reports slip and fall while mopping floor tonight causing injury to right upper leg. Historical: - Allergies: 00:01 No Known Allergies; ld1 - PMHx: 00:01 Cirrhosis; Depression; Hypertension; Ulcers; ld1 - Immunization history: Last tetanus immunization: unknown. - Social history:: Smoking status: Patient reports the use of cigarette tobacco products, unknown Patient/guardian denies using alcohol. ROS: 00:10 Constitutional: Negative for body aches, chills, fever, poor PO intake. cp 00:10 Eyes: Negative for injury, pain, redness, and discharge. cp 00:10 ENT: Negative for drainage from ear(s), ear pain, sore throat, difficulty swallowing, difficulty handling secretions. 00:10 Cardiovascular: Negative for chest pain, edema, palpitations. 00:10 Respiratory: Negative for cough, shortness of breath, wheezing. 00:10 Abdomen/GI: Negative for abdominal pain, nausea, vomiting, and diarrhea. 00:10 Back: Negative for decreased range of motion. 00:10 MS/extremity: Positive for injury or acute deformity, decreased range of motion, ecchymosis, pain, of the right upper leg, Negative for paresthesias. 00:10 Neuro: Negative for altered mental status, headache, loss of consciousness, syncope, weakness. 00:10 All other systems are negative. Exam: 00:15 Constitutional: The patient appears in no acute distress, alert, awake, cp non-diaphoretic, non-toxic, well developed, well nourished, in obvious pain, uncomfortable. 00:15 Head/Face: Normocephalic, atraumatic. cp 00:15 Eyes: Periorbital structures: appear normal, Pupils: pinpoint, bilaterally, Extraocular movements: intact throughout, Conjunctiva: normal, no exudate, no injection, Sclera: no appreciated abnormality, Lids and lashes: appear normal, bilaterally. 00:15 ENT: External ear(s): are unremarkable, Nose: is normal, Mouth: Lips: moist, Oral mucosa: moist, Posterior pharynx: Airway: no evidence of obstruction, patent. 00:15 Neck: C-spine: vertebral tenderness, is not appreciated, crepitus, is not appreciated, ROM/movement: is normal, is supple, without pain, no range of motions limitations. 00:15 Chest/axilla: Inspection: normal, Palpation: is normal, no crepitus, no tenderness. 00:15 Cardiovascular: Rate: tachycardic, Rhythm: regular, Edema: is not appreciated, JVD: is not appreciated. 00:15 Respiratory: the patient does not display signs of respiratory distress, Respirations: normal, no use of accessory muscles, no retractions, labored breathing, is not present, Breath sounds: are clear throughout, no decreased breath sounds, no stridor, no wheezing. 00:15 Abdomen/GI: Inspection: abdomen appears normal, Bowel sounds: active, all quadrants, Palpation: abdomen is soft and non-tender, in all quadrants. 00:15 Back: vertebral tenderness, is not appreciated. 00:15 Musculoskeletal/extremity: Extremities: grossly normal except: noted in the right hip: decreased ROM, deformity, ecchymosis, pain, ROM: limited passive range of motion, in the right hip, Pulses: noted to be 2+ in the right dorsalis pedis artery and left dorsalis pedis artery, the right hip Severe pain noted. 00:15 Neuro: Orientation: to person, place \\T\\ time. Mentation: is normal. 00:45 ECG was reviewed by the Attending Physician. cp Vital Signs: 08/24 23:53 BP 129 / 70; Pulse 101; Resp 18; Temp 98.1(TE); Pulse Ox 90% on R/A; Weight 65.32 kg; ld1 Height 5 ft. 6 in. (167.64 cm); Pain 10/10; 08/25 02:51 BP 127 / 70; Pulse 102; Resp 17 S; Pulse Ox 96% on R/A; lg3 08/24 23:53 Body Mass Index 23.24 (65.32 kg, 167.64 cm) ld1 Floyd Coma Score: 08/24 23:53 Eye Response: spontaneous(4). Verbal Response: oriented(5). Motor Response: obeys ld1 commands(6). Total: 15. Trauma Score (Adult): 23:53 Eye Response: spontaneous(1); Verbal Response: oriented(1); Motor Response: obeys ld1 commands(2); Systolic BP: > 89 mm Hg(4); Respiratory Rate: 10 to 29 per min(4); Floyd Score: 15; Trauma Score: 12 MDM: 08/25 00:00 Patient medically screened. 02:30 Data reviewed: vital signs, nurses notes, lab test result(s), EKG, radiologic studies, plain films. 02:30 Counseling: I had a detailed discussion with the patient and/or guardian regarding: the historical points, exam findings, and any diagnostic results supporting the discharge/admit diagnosis, lab results, radiology results. 03:04 Physician consultation: Yair Tee MD was called at 03:04, was contacted at 03:04, regarding consult, patient's condition, would like admission per Dr. Raymond Shaver MD. 08/24 23:59 Order name: Basic Metabolic Panel; Complete Time: 01:36 08/25 02:24 Interpretation: Normal except: CL 109; GFR 56. 08/24 23:59 Order name: CBC with Diff; Complete Time: 01:36 08/25 02:25 Interpretation: Normal except: RBC 3.57; MCV 101.7; JAMI% 79.7; LYM% 10.6. 08/24 23:59 Order name: Type And Screen 08/25 00:13 Order name: LFT's; Complete Time: :29 [facility] 08/25 02:25 Interpretation: Normal except: AST 47; BILIT 1.2; BILID 0.5. 08/25 00:13 Order name: ETOH Level; Complete Time: : [facility] 08/25 02:25 Interpretation: Abnormal: ETOH 130. 08/25 00:13 Order name: PT-INR; Complete Time: 01:29 la1 08/25 02:25 Interpretation: Reviewed. cp 08/24 23:58 Order name: XRAY Pelvis cp 08/24 23:58 Order name: XRAY Femur RIGHT cp 08/24 23:59 Order name: CT Traumagram (Head C Spine CAP W Con) cp 08/24 23:59 Order name: XRAY Chest (1 view) 08/25 00:31 Order name: COVID-19 SARS RT PCR (Document "Date of Onset" if Symptomatic) 2 08/25 03:04 Order name: Urine Microscopic Only 08/25 03:11 Order name: Urine Dipstick-Ancillary; Complete Time: 03:11 EDMS 08/25 05:54 Order name: Urine Microscopic Only EDMS 08/24 23:59 Order name: Labs collected and sent; Complete Time: 00:28 cp 08/24 23:59 Order name: EKG; Complete Time: 00:00 08/24 23:59 Order name: EKG - Nurse/Tech; Complete Time: 02:40 cp 08/24 23:59 Order name: IV; Complete Time: 00:04 cp 08/25 02:12 Order name: Bledsoe; Complete Time: 02:13 lg3 08/25 03:04 Order name: Urine Dipstick-Ancillary (obtain specimen); Complete Time: 03:13 cp EC:45 Rate is 93 beats/min. Rhythm is regular. IA interval is normal. QRS interval is normal. cp QT interval is normal. T waves are Inverted in lead aVR. Interpreted by me. Reviewed by me. Administered Medications: 00:28 Drug: NS 0.9% 1000 ml Route: IV; Rate: 1 bolus; Site: right antecubital; lg3 02:51 Follow up: Response: No adverse reaction; IV Status: Completed infusion; IV Intake: lg3 1000ml 03:13 Drug: Rocephin (cefTRIAXone) 1 grams Route: IV; Rate: calculated rate; Site: right tw5 antecubital; 03:13 Follow up: IV Status: Completed infusion tw5 Disposition: 22:07 Co-signature as Attending Physician, Blake Guzman MD I agree with the assessment and rn plan of care. Attestation: The patient's history, exam findings, diagnostics, and a summary of any interventions or procedures was reviewed in detail with Tae LUO. Disposition Summary: 08/25/21 03:09 Hospitalization Ordered Hospitalization Status: Inpatient Admission cp Provider: Raymond Shaver cp Condition: Stable(08/25/21 03:09) cp Problem: new(08/25/21 03:09) cp Symptoms: have improved(08/25/21 03:09) cp Bed/Room Type: Standard cp Location: [facility] ER HOLD(08/25/21 03:43) mw2 Room Assignment: ERHOLD-(08/25/21 03:43) mw2 Diagnosis - Intertrochanteric fracture of femur - right(08/25/21 03:09) cp - Fall on same level, unspecified cp Forms: - Medication Reconciliation Form cp - SBAR form cp Signatures: Dispatcher [employer] EDMS Blake Guzman MD MD rn Attema, Lee, VALET PARKING ATTENDANT-C VALET PARKING ATTENDANT-Cla1 Tae Palacios PA PA cp Aakash Sen mw2 Evy Whitt RN RN lg3 Abbi Gillespie RN RN ld1 Jessica Thomason tw5 Corrections: (The following items were deleted from the chart) 00:01 00:01 PSHx: None; ld1 ld1 02:25 02:25 Normal except: RBC 3.57; MCV 101.7. cp cp 03:07 02:28 DR cp cp 03:07 02:28 [facility] cp cp 03:07 02:28 Higher level of care cp cp 03:07 02:28 Stable cp cp 03:07 02:28 new cp cp 03:07 02:28 have improved cp cp 03:07 02:28 Intertrochanteric fracture of femur - right cp cp 03:43 03:09 Telemetry/MedSurg (Inpatient) cp mw2 03:43 03:09 cp mw2
--- NOTE | 2021-08-25 02:29 | ER ---
Nurse's Notes [facility] Name: Jami Brewer Age: 61 yrs Sex: Female : 1960 Arrival Date: 08/24/2021 Time: 23:51 Bed 26 Private MD: Diagnosis: Intertrochanteric fracture of femur-right;Fall on same level, unspecified Presentation: 08/24 23:53 Chief complaint: Patient states: I was mopping this evening - slipped and fell, denies ld1 hitting head, no blood thinners. Pt reporting pain to right femur and hip. Care prior to arrival: Placed on backboard. Medication(s) given: Fentanyl 300 mcg. Mechanism of Injury: Fall from standing position. Trauma event details: Injury occurred in the [facility]. 23:53 Acuity: PRECIOUS 3 ld1 23:53 Method Of Arrival: EMS: [facility] ld1 08/25 00:00 Coronavirus screen: At this time, the client does not indicate any symptoms associated ld1 with coronavirus-19. Ebola Screen: No symptoms or risks identified at this time. Initial Sepsis Screen: Does the patient meet any 2 criteria? No. Patient's initial sepsis screen is negative. Does the patient have a suspected source of infection? No. Patient's initial sepsis screen is negative. Risk Assessment: Do you want to hurt yourself or someone else? Patient reports no desire to harm self or others. Onset of symptoms was August 25, 2021 at 00:01. Triage Assessment: 00:01 General: Appears. ld1 Trauma Activation: Alert Physician: ED Physician; Name: ; Notified At: 23:45; Arrived At: 23:45 Physician: General Surgeon; Name: ; Notified At: 23:45; Arrived At: Physician: Radiology; Name: ; Notified At: 23:45; Arrived At: Physician: Respiratory; Name: ; Notified At: 23:45; Arrived At: Physician: Lab; Name: ; Notified At: 23:45; Arrived At: 23:56 Historical: - Allergies: 00:01 No Known Allergies; ld1 - PMHx: 00:01 Cirrhosis; Depression; Hypertension; Ulcers; ld1 - Immunization history: Last tetanus immunization: unknown. - Social history:: Smoking status: Patient reports the use of cigarette tobacco products, unknown Patient/guardian denies using alcohol. Screenin/19 23:53 Abuse screen: Denies threats or abuse. Denies injuries from another. Tuberculosis ld1 screening: No symptoms or risk factors identified. 08/25 00:02 Nutritional screening: No deficits noted. Fall Risk None identified. ld1 Primary Survey: 08/24 23:53 NO uncontrolled hemorrhage observed. Breathing/Chest: Spontaneous respiratory effort, ld1 equal unlabored respirations, breath sounds clear bilaterally, regular pattern, symmetrical chest rise and fall. Circulation: No external hemorrhage present. Regular and strong central pulse, skin warm/dry/normal color. Disability Client is alert. Exposure/Environment: All clothing and personal items were removed. Forensic evidence collection is not deemed to be indicated at this time. Items placed in patient belonging bag. Reassessment Alertness and Airway: Awake and alert. The airway is patent. Breathing: Spontaneous respiratory effort, equal unlabored respirations, breath sounds clear bilaterally, regular pattern with symmetrical chest rise and fall. Circulation: No external hemorrhage noted. Regular and strong central pulse, skin warm/dry/normal color. Disability: Alert. Assessment: 23:53 General: Appears in no apparent distress. uncomfortable, Behavior is cooperative, ld1 appropriate for age, anxious, crying, fussy. Pain: Complains of pain in right hip and right leg Pain does not radiate. Pain currently is 10 out of 10 on a pain scale. Quality of pain is described as sharp, shooting, throbbing. Neuro: Level of Consciousness is awake, alert, obeys commands, Oriented to person, place, time, situation. EENT: No signs and/or symptoms were reported regarding the EENT system. Cardiovascular: Capillary refill < 3 seconds Patient's skin is warm and dry. Rhythm is sinus rhythm. Respiratory: Airway is patent Respiratory effort is even, unlabored. GI: Abdomen is flat, non-distended. : No signs and/or symptoms were reported regarding the genitourinary system. Derm: No signs and/or symptoms reported regarding the dermatologic system. Musculoskeletal: No signs and/or symptoms reported regarding the musculoskeletal system. 07/20 02:51 Reassessment: Patient appears in no apparent distress at this time. No changes from lg3 previously documented assessment. Patient and/or family updated on plan of care and expected duration. Pain level reassessed. Patient is alert, oriented x 3, equal unlabored respirations, skin warm/dry/pink. Vital Signs: 08/24 23:53 BP 129 / 70; Pulse 101; Resp 18; Temp 98.1(TE); Pulse Ox 90% on R/A; Weight 65.32 kg; ld1 Height 5 ft. 6 in. (167.64 cm); Pain 11/15; 08/25 02:51 BP 127 / 70; Pulse 102; Resp 17 S; Pulse Ox 96% on R/A; lg3 08/24 23:53 Body Mass Index 23.24 (65.32 kg, 167.64 cm) ld1 [place] Coma Score: 08/24 23:53 Eye Response: spontaneous(4). Verbal Response: oriented(5). Motor Response: obeys ld1 commands(6). Total: 15. Trauma Score (Adult): 23:53 Eye Response: spontaneous(1); Verbal Response: oriented(1); Motor Response: obeys ld1 commands(2); Systolic BP: > 89 mm Hg(4); Respiratory Rate: 10 to 29 per min(4); Ashley Score: 15; Trauma Score: 12 ED Course: 23:51 Patient arrived in ED. tw5 23:53 Abbi Gillespie, RN is Primary Nurse. ld1 23:53 Patient has correct armband on for positive identification. Placed in gown. Bed in low ld1 position. Call light in reach. Side rails up X2. Patient maintains SpO2 saturation greater than 95% on room air. 23:53 Maintain EMS IV. Dressing intact. Good blood return noted. Site clean \\T\\ dry. Gauge \\T\\ ld 1 site: 20G RAC. Patient maintains SpO2 saturation greater than 95% on room air. 23:55 Tae Palacios PA is PHCP. cp 23:55 Blake Guzman MD is Attending Physician. cp 23:56 Triage completed. ld1 08/25 00:02 Arm band placed on right wrist. ld1 00:02 Client placed on continuous cardiac and pulse oximetry monitoring. NIBP monitoring ld1 applied. environmental monitoring technician on. Pulse ox on. NIBP on. Door closed. Noise minimized. Warm blanket given. 00:28 PT-INR Sent. lg3 00:28 ETOH Level Sent. lg3 00:28 LFT's Sent. lg3 00:28 Basic Metabolic Panel Sent. lg3 00:28 CBC with Diff Sent. lg3 00:28 Type And Screen Sent. lg3 00:32 XRAY Pelvis In Process Unspecified. EDMS 00:32 XRAY Femur RIGHT In Process Unspecified. EDMS 02:12 COVID-19 SARS RT PCR (Document "Date of Onset" if Symptomatic) Sent. lg3 02:13 Bledsoe cath inserted, using sterile technique, 18 Fr., by ED staff, balloon inflated, to lg3 gravity drainage, urine specimen collected. 02:[address] Ab Francisco answering service they will call us back. mw2 02:[address] Ab Carrasquillo to have the answering service get a hold of the 2 doctor cotton dispatcher. 03:07 Raymond Shaver MD is Hospitalizing Provider. cp 04:15 No provider procedures requiring assistance completed. Patient admitted, IV remains in lg3 place. intact, No redness/swelling at site. 04:16 Thermoregulation: warm blanket given to patient. lg3 04:26 Lucretia Charla [phone]. mw2 05:25 Primary Nurse role handed off by Abbi Gillespie, RN mw2 Administered Medications: 00:28 Drug: NS 0.9% 1000 ml Route: IV; Rate: 1 bolus; Site: right antecubital; lg3 02:51 Follow up: Response: No adverse reaction; IV Status: Completed infusion; IV Intake: lg3 1000ml 03:13 Drug: Rocephin (cefTRIAXone) 1 grams Route: IV; Rate: calculated rate; Site: right tw5 antecubital; 03:13 Follow up: IV Status: Completed infusion tw5 Medication: 04:16 VIS not applicable for this client. lg3 Intake: 08/24 23:53 PO: 0ml; Total: 0ml. ld1 08/25 02:51 IV: 1000ml; Total: 1000ml. lg3 Outcome: 02:28 ER care complete, transfer ordered by . cp 03:09 Decision to Hospitalize by Provider. cp 04:15 Admitted to ER Hold. Please see [employer] for further documentation. lg3 04:15 Condition: stable 04:15 Instructed on the need for admit, Demonstrated understanding of instructions. 04:16 Patient's length of stay in the Emergency Department was greater than 2 hours. lg3 05:58 Patient left the ED. mw2 Signatures: Dispatcher [employer] EDMS Tae Palacios PA PA cp [place], MyKena mw2 Evy Whitt RN RN lg3 Abbi Gillespie RN RN ld1 Jessica Thomason 5 Corrections: (The following items were deleted from the chart) 00:01 00:01 PSHx: None; ld1 ld1
[2021-08-25 03:11] LABS: Urine Blood Trace-intact (Negative); Urine Glucose Negative (Negative); Urine Protein Negative (Negative); Urine Specific Gravity <=1.005 (1.005-1.030)
[2021-08-25] MEDS ORDERED: CEFTRIAXONE 1000 MG/VIAL ONE (03:19)
[2021-08-25] MEDS ORDERED: D5 0.9 NS 1,000 ML IV ONE (05:10)
[2021-08-25 05:54] LABS: Urine Bacteria >50 /HPF (<20); Urine RBC None Seen /HPF (None Seen)
[2021-08-25] MEDS ORDERED: MORPHINE 4 MG/ML SYR ONE (06:56)
--- NOTE | 2021-08-25 07:20 | EKG ---
Test Date: 2021-08-25 Test Time: 00:39:28 Refrigeration Insulator: [place]MER MEASUREMENT RESULTS: Intervals: Rate: 93 CO: 164 QRSD: 78 QT: 366 QTc: 455 [place]: P: 81 CO: 164 QRS: 70 T: 89 INTERPRETIVE STATEMENTS: Normal sinus rhythm Nonspecific ST abnormality Abnormal ECG Compared to ECG 04/11/2018 19:19:26 ST (T wave) deviation now present Myocardial infarct finding no longer present Electronically Signed On 08-25-21 07:20:22 CDT by Iban Levine
[2021-08-25] MEDS ORDERED: ONDANSETRON 4 MG/2 ML VIAL IV PRN (07:35)
[2021-08-25] MEDS: D5 0.9 NS 1,000 ML IV SCH ×2 (08:00→17:33)
[2021-08-25 10:20] VITALS: BMI 23.2
[2021-08-25] MEDS: MORPHINE 4 MG/ML SYR IV PRN ×3 (11:09→21:26)
[2021-08-25 11:40] LABS: Amylase 51 U/L (25-115); Lipase 163 U/L (73-393)
--- NOTE | 2021-08-25 12:00 | RAD REPORT ---
EXAM DESCRIPTION: 1. CT HEAD without IV contrast. 2. CT CERVICAL SPINE without IV contrast. 3. CT CHEST with IV contrast 4. CT ABDOMEN AND PELVIS with IV contrast CLINICAL HISTORY: 61 years Female status post fall TECHNIQUE: Multiple unenhanced axial CT images of the brain and cervical spine were performed and mu ltiple contrast-enhanced axial CT images of the chest, abdomen and pelvis were performed followed by sagittal and coronal reconstructed images. The CT study is performed according to ALARA (as low as re asonably achievable) or ALARA/IMAGE GENTLY, with automatic adjustment of mA and/or kV according to pa tient size. Performed on: 08/25/2021 at 1:37 AM Comparisons: Prior CT head report from 04/12/2018, MRI lumbar spine report from 10/25/2018 and abdomin al ultrasound report from 08/26/2020. The images were unavailable for review.. FINDINGS: CT HEAD: There is no evidence of mass, acute mass effect or midline shift. There are no acute extra-axial flui d collections. There is no evidence of acute intracranial hemorrhage. The cerebral sulci and ventricles are normal in size and configuration. There are scattered areas of decreased attenuation within the subcortical and periventricular white m atter most likely due to mild chronic microangiopathy. There is mild mucosal thickening of the paranasal sinuses. The mastoid air cells are clear. The orbital contents are grossly unremarkable. No acute osseous abnormalities are identified. No focal soft tissue abnormalities are identified. CT CERVICAL SPINE: The cervical vertebrae are normal in height. There is straightening of the normal cervical lordosis w hich may be due to chronic degenerative changes, patient positioning and/or muscle spasm. There is tr bethel anterolisthesis of C7 relative to T1. There is multilevel disc space narrowing throughout the cer vical spine most pronounced at C7-T1. There are prominent endplate irregularities involving the C7-T1 level likely related to Schmorl's node phenomenon. There is degenerative spurring of the vertebral e ndplates from C3 through T1. Bone mineralization is grossly within normal limits. The atlanto-axi al articulation is preserved and the odontoid process is intact. There is normal alignment of the facet joints on the parasagittal images. There are mild degenerative changes of the facet joints. There is no evidence of acute fracture or subluxation. There is mild to moderate C4-C5 through C6-C7 canal stenosis secondary to prominent disc osteophyte complexes. There is moderate left C4-C5 and C 5-C6 and mild left C6-C7 neural foraminal stenosis secondary to uncovertebral joint and facet joint h ypertrophy. The paravertebral and paraspinal soft tissues are unremarkable. There are mild atheroscle rotic calcifications along the left carotid artery bifurcation. The lung apices are grossly clear. CHEST: Lungs: The lungs are well expanded and are clear. There is minimal fibrosis along the posterior media l right lower lobe. There are no pleural effusions. There is no pneumothorax. The central airways are patent and are unremarkable. Heart: The heart is normal in size. There is no pericardial effusion. Mediastinum: The mediastinum is unremarkable. The mediastinal vessels are normal in caliber and con tour. There are distal esophageal varices. Bones: There is an old healed fracture through the mid body of the sternum. There are irregularities involving the superior endplates of T1, T6, T7 and T8 and inferior endplates of T12. Findings are lik christen related to chronic compression fractures. There are also multiple chronic appearing compression f ractures throughout the lumbar spine. There is a healing fracture of the posterior right 12th rib. Soft tissues: No focal soft tissue abnormalities are identified. Lymphadenopathy: No pathologic hilar, mediastinal or axillary lymphadenopathy is identified. ABDOMEN/PELVIS: Liver: The liver is nodular in contour with cirrhotic morphology. There is a 1.1 cm hypodense lesion in the dome of the right hepatic lobe most consistent with a hepatic cyst. There is an additional sub centimeter hypodensity along the inferolateral aspect of the right hepatic lobe most consistent with an incidental cyst. Otherwise, no additional focal hepatic abnormalities are identified. Liver attenu ation is decreased commonly due to fatty infiltration and/or other hepatocellular disease. The hepati c and portal veins are patent. Spleen: The spleen is normal is size, configuration and attenuation. Gallbladder and bile duct: The gallbladder is well-distended and contains gallstones. There is no b iliary ductal dilatation. Pancreas: The pancreas is grossly normal in size and configuration. Adrenal Glands: The right adrenal gland is grossly normal in size and configuration. The left adrenal gland is not well delineated. There are adjacent splenic varices in the left upper quadrant. Kidneys: The kidneys are normal in size and configuration. There is no evidence of hydronephrosis. Th ere is no evidence of nephrolithiasis. There is an approximately 1.7 cm right renal cortical cyst. No routine follow-up imaging is recommended. Stomach: The stomach is grossly normal. There is no definite hiatal hernia. There are distal esophage al varices. Bowel: The bowel gas pattern is non specific and non obstructive. There is occasional colonic diverti culosis. Appendix: The appendix is normal. Free air: There is no evidence of free air. Free fluid: There is no evidence of free fluid. Vasculature: The aorta is normal in caliber and contour. There are mild atherosclerotic calcification s along the abdominal aorta. The inferior vena cava is grossly unremarkable. Lymphadenopathy: No pathologic lymphadenopathy is identified. Bladder: The bladder is well distended and smooth in contour. There is some streak artifact in the pe lvis related to the patient's total left hip arthroplasty. This results in slight degradation of imag e quality. Reproductive: The uterus is grossly within normal limits. Bones: There is an acute mildly displaced comminuted intertrochanteric fracture of the proximal right femur. A total left hip arthroplasty is present. There are chronic compression fractures involving a ll lumbar vertebrae. There is left lateral recess stenosis at L2-L3. Soft tissues: There is soft tissue swelling surrounding the right hip joint. There is atrophy of the left psoas muscle and left iliopsoas muscle and muscles surrounding the left hip. IMPRESSION: CT HEAD: 1. No evidence of acute intracranial pathology. 2. Mild chronic microangiopathy. CT CERVICAL SPINE: 1. No evidence of acute osseous injury involving the cervical spine. 2. Degenerative changes of the cervical spine as described above with mild to moderate canal stenos is C4-C5 through C6-C7 secondary to prominent disc osteophyte complexes. 3. There is moderate left C4-C5 and C5-C6 and mild left C6-C7 neural foraminal stenosis secondary t o uncovertebral joint and facet joint hypertrophy. CT CHEST: 1. No evidence of acute intrathoracic disease. 2. There are chronic compression fractures involving several thoracic vertebrae. No definite acute fractures are identified. 3. There is a healing fracture of the posterior right 12th rib. 4. There is an old healed fracture through the mid body of the sternum. CT ABDOMEN AND PELVIS: 1. There is an acute mildly displaced comminuted intertrochanteric fracture of the proximal right fem ur with surrounding soft tissue swelling. 2. No evidence of acute intra-abdominal or intrapelvic pathology. There is no evidence of solid organ injury. 3. CT findings compatible with hepatic cirrhosis and portal hypertension with distal esophageal varic es and varices in the left upper quadrant. 4. Cholelithiasis. 5. Occasional colonic diverticulosis. 6. Multiple chronic compression fractures of all lumbar vertebrae. No definite acute lumbar vertebral fractures are identified at this time. Correlate with previous MRI lumbar spine images if they can b e obtained. 7. There is atrophy of the left psoas muscle and left iliopsoas muscle and muscles surrounding the le ft hip. Electronically signed by: Kathrin Barros DO 08/25/2021 3:06 AM CDT Due to temporary technical issues with the PACS/Fluency reporting system, reports are being signed by the in house radiologists without review as a courtesy to insure prompt reporting. The interpreting radiologist is fully responsible for the content of the report.
--- NOTE | 2021-08-25 12:04 | RAD REPORT ---
EXAM DESCRIPTION: X-ray pelvis 1 view CLINICAL HISTORY: 61 years Female fall TECHNIQUE: One x-ray view of the pelvis was performed on 08/25/2021 at 12:01 AM. COMPARISON: None FINDINGS: There is an acutely angulated intertrochanteric fracture of the proximal right femur . The re is partial visualization of a total left hip arthroplasty. No additional fractures are identified. The sacroiliac joints, hip joints and pubic symphysis are grossly intact. No pathologic lytic or scl erotic bone lesions are seen. Bone mineralization is normal. No acute soft tissue abnormalities are identified. IMPRESSION: Acutely angulated intertrochanteric fracture of the proximal right femur. Electronically signed by: Kathrin Barros DO 08/25/2021 1:06 AM CDT Due to temporary technical issues with the PACS/Fluency reporting system, reports are being signed by the in house radiologists without review as a courtesy to insure prompt reporting. The interpreting radiologist is fully responsible for the content of the report.
--- NOTE | 2021-08-25 12:08 | RAD REPORT ---
EXAM DESCRIPTION: Femur Right CLINICAL HISTORY: 61 years Female with pain in right femur TECHNIQUE: 2 x-ray views of the right femur were performed on 08/25/2021 at 12:09 AM. COMPARISON: None FINDINGS: There is a mildly comminuted and mildly displaced intertrochanteric fracture of the proxim al right femur. The hip joint is intact. The knee joint is intact. No additional acute fractures are identified. No pathologic lytic or sclerotic bone lesions are seen. There is a partially visualized l eft hip arthroplasty. The sacroiliac joints and pubic symphysis are grossly intact. Bone mineralization is normal. No acute soft tissue abnormalities are identified. IMPRESSION: 1. Mildly comminuted and mildly displaced intertrochanteric fracture of the proximal r ight femur. 2. Partially visualized left hip arthroplasty. Electronically signed by: Kathrin Barros DO 08/25/2021 1:08 AM CDT Due to temporary technical issues with the PACS/Fluency reporting system, reports are being signed by the in house radiologists without review as a courtesy to insure prompt reporting. The interpreting radiologist is fully responsible for the content of the report.
--- NOTE | 2021-08-25 12:11 | RAD REPORT ---
EXAM DESCRIPTION: Chest Single View CLINICAL HISTORY: 61 years Female, fall TECHNIQUE: 1 view (Single frontal view of the chest) COMPARISON: None. FINDINGS: LINES AND TUBES: None. CARDIOVASCULAR STRUCTURES: ormal heart size. No pulmonary venous congestion. LUNGS: No confluent areas of acute consolidation. PLEURA: No layering pleural effusions. No pneumothorax. BONES: No acute osseous abnormality of the thorax. IMPRESSION: 1. No acute cardiopulmonary disease. Electronically signed by: Mg Jeff MD 08/25/2021 2:08 AM CDT Due to temporary technical issues with the PACS/Fluency reporting system, reports are being signed by the in house radiologists without review as a courtesy to insure prompt reporting. The interpreting radiologist is fully responsible for the content of the report.
[2021-08-25] MEDS: LACTULOSE 20 GM/30 ML UCUP PO SCH ×2 (17:33→21:25)
--- NOTE | 2021-08-25 20:05 | PN ---
The patient is comfortable when seen this afternoon. We will restart her medications. Vital signs a re stable. She is scheduled for surgery sometime tomorrow. However, the patient did ask me, skye may she had a fractured hip in 2018, which was repaired by Dr. Ab Yip, whom she called this morning to see if he could do this one. However, apparently there was no connection made. We will t ry this afternoon and see the availability of beds and the doctor, who has moved since she has done i t at [facility], she is not sure which one. If this is unsuccessful, she should continue with h er treatment here with Dr. Tee and myself. HR/MODL Voice ID: [id number] Report ID: [id number]
--- NOTE | 2021-08-25 20:32 | HP ---
Date of Admission: 08/25/2021 History Of Present Illness: Enters complaint of painful leg. The patient states she was washing her floors during the evening hours and she slipped and sustained a fracture. Past Medical History: The patient has had a fracture repaired a couple of years ago, and since that time, she states she has had some atrophy in the area, and has discussed it and seen by her doctor wh o repaired it, and he did suggest that this could be modified. She also had some fractured vertebrae , which she was unsure when it occurred, but she felt it was secondary to a fall when she was walking her dogs. The patient has a long history of alcoholic cirrhosis. Denies any drinking over the past six months. She has had Fosamax for a number of years for her bone problems as well. She was resta rted on by myself about 2 months ago. She was getting anxious and depressed once again. She apparently underwent an EGD by in [place] in February. She said no specific mentio n was made on the varices or the cirrhosis; however, both of them showed on her CT scan here with bas ically normal liver enzymes, except for slight elevation of bilirubin. However, due to these factors it was felt probably ramos to withhold any blood thinners. She was seen by Dr. Tee, who has sc heduled her for sometime tomorrow for surgical repair. Family History: Noncontributory. Social History: States nondrinker recently and nonsmoker. Physical Examination: General: The patient is a comfortable, elderly female. Vital Signs: Stable. Head and Neck: Normocephalic. Pupils are equal and reactive to light and accommodation. Fundi nega tive. Trachea midline. Thyroid not palpable. ENT: Negative. Chest: Clear to P and A. Cardiovascular: PMI midclavicular line. Heart sounds are normal. Peripheral pulses are present and equal bilaterally. Abdomen: No organomegaly, bowel sounds present. Extremities: Upper extremities normal. Slight deformity of the lower right leg and decreased motion in all directions of the left hip area. Rectal/Pelvic: Deferred. Impression: Fractured hip, left. Fractured hip, right old stable, compression fractures old stable, alcohol cirrhosis, esophageal varices, acute anxiety and depression. Plan: The patient will be admitted, placed on IV fluids, kept n.p.o. in preparation for surgery. Ho wever, this was changed to tomorrow and therefore she was started on some liquids. No anticoagulatio n due to esophageal varices and borderline INR. We will use some compression on the lower extremity, and orthopedic consultation was made in preparation for surgical repair. HR/MODL Voice ID: [id number]
[2021-08-25] MEDS: RIFAXIMIN 550 MG PO SCH (21:00)
[2021-08-25] MEDS: Rifaximin 550 MG Tab PO SCH (21:00)
--- NOTE | 2021-08-26 01:11 | HP ---
Date of Admission: 08/25/2021 Addendum: Diagnoses: Acute mildly displaced comminuted intertrochanteric fracture of the proximal right femur; old healed fracture of the mid body of the sternum, posterior right 12th rib; chronic compression fr acture in the thoracic vertebrae; atrophy of the muscles of the left hip with an old fracture repaire d; total left hip arthroplasty. Use that as diagnoses as well. There may be some confusion as to th e left and to the right, but the right femur has the acute fracture and the left femur has the old on e, not sure if I had reversed in the initial dictation. HR/MODL Voice ID: [id number]
--- NOTE | 2021-08-26 04:02 | CON ---
Date of Consultation: 08/25/2021 History Of Present Illness: This is my first time seeing this patient. To my knowledge, she is a 61 -year-old female who has other medical problems, which were treated by Dr. Shaver in the past, who u nfortunately fell injuring her right lower extremity. She was seen and examined in the Emergency Dep artment where she was ruled out for other injuries; however, an x-ray demonstrated that she appeared to have a fracture of her hip. She was admitted to the hospital under the care of Dr. Shaver and I am consulted. Physical Examination: All of her long bones and joints were palpated without pain or crepitation with the exception of her right hip, which is painful on any movement or manipulation. Imaging: Review of x-rays demonstrate what appears to be a reverse obliquity intertrochanteric fract ure with some comminution and slight displacement. Also noted is a previous left total hip arthropla sty, which was done by another physician that she says was done in 2019 for previous hip fracture. Assessment: This is a 61-year-old female, now with what appears to be a reverse obliquity intertroch anteric fracture on the right. She will see Dr. Shaver. She does have a history of some liver issu es and he will place her on SCD. Let him decide on anticoagulation, but most likely we will plan on closed open reduction of the hip tomorrow, most likely with intramedullary yun fixation. The risks, benefits, and alternatives of this procedure have been discussed with the patient. She says she unde rstands things as presented and wishes to proceed. ROSEMARY Voice ID: [id number] Report ID: [id number]
[2021-08-26] MEDS: D5 0.9 NS 1,000 ML IV SCH ×3 (05:33→23:57)
[2021-08-26] MEDS: MORPHINE 4 MG/ML SYR IV PRN ×2 (06:35→20:14)
[2021-08-26] MEDS: ESCITALOPRAM 20 MG TAB PO SCH (08:57)
[2021-08-26] MEDS: RIFAXIMIN 550 MG PO SCH ×2 (08:57→21:00)
[2021-08-26] MEDS: PANTOPRAZOLE 40MG TABLET PO SCH (08:57)
[2021-08-26] MEDS: LACTULOSE 20 GM/30 ML UCUP PO SCH ×4 (08:57→20:14)
[2021-08-26] MEDS: Rifaximin 550 MG Tab PO SCH ×2 (08:58→20:16)
[2021-08-26] MEDS ORDERED: Ringers Lactate 1,000 ML IV ONE (09:28)
[2021-08-26] MEDS ORDERED: FENTANYL CITR 100 MCG/2 ML ONE (09:34)
[2021-08-26] MEDS ORDERED: LIDOCAINE 1% MPF 5 ML VIAL ONE (09:34)
[2021-08-26] MEDS ORDERED: dexAMETHasone 10 MG/ML VIAL ONE (09:34)
[2021-08-26] MEDS ORDERED: BUPIVACAINE 0.25% PF 30 ML VIAL ONE (09:34)
[2021-08-26] MEDS ORDERED: MIDAZOLAM HCL 2 MG/2 ML INJ ONE (09:34)
[2021-08-26] MEDS ORDERED: TRANEXAMIC ACID 1,000 MG/10 ML VIAL IV ONE (10:40)
[2021-08-26] MEDS ORDERED: propofoL 200 MG/20 ML VIAL IV ONE (10:50)
[2021-08-26] MEDS ORDERED: dexAMETHasone 4 MG/ML VIAL ONE (10:50)
[2021-08-26] MEDS ORDERED: KETOROLAC 30 MG/ML INJ ONE (10:50)
[2021-08-26] MEDS ORDERED: LIDOCAINE 2% MPF 5 ML VIAL ONE (10:50)
[2021-08-26] MEDS ORDERED: ONDANSETRON 4 MG/2 ML VIAL ONE (10:50)
[2021-08-26] MEDS ORDERED: CEFAZOLIN SODIUM 1 GM/VIAL ONE (11:27)
[2021-08-26] MEDS ORDERED: Phenylephrine HCl 10 MG/ML 1 ML VIAL ONE (11:50)
[2021-08-26] MEDS ORDERED: NS 0.9% VIAL 10 ML ONE (11:50)
[2021-08-26] MEDS ORDERED: BUPIVACAINE 0.25% PF 10 ML VIAL ONE (12:13)
--- NOTE | 2021-08-26 12:59 | P.BOP ---
Preoperative diagnosis: Complex proximal femur fracture Postoperative diagnosis: same Primary procedure: OR/SALMA yun fixation right femur Estimated blood loss: 100ccs Anesthesia: General Complications: None Transferred to: Recovery Room Condition: Good
[2021-08-26] MEDS: MEPERIDINE HCL 25 MG/ML SYR ONE ×2 (13:31→13:37)
--- OUTSIDE RECORDS SUMMARY | 2021-08-26 14:57 | XMS REPORT | Continuity of Care Document ---
:1960 Author Organization [facility] t Address [address] [place] [address] Care Team Providers Name Role Phone Lab, Fam Pob I Attending Clinician Unavailable Mary Kay GARCIA Attending Clinician MERCADO Attending Clinician Unavailable Doctor Unassigned, Name Attending Clinician Unavailable ZULMA Attending Clinician Unavailable ZULMA Admitting Clinician Unavailable Problems This patient has no known problems. Allergies, Adverse Reactions, Alerts Allergy Allergy Status Severity Reaction(s) Onset Inactive Treating Comm ents Source Name Type Date Date Clinician NO KNOWN Drug [facility] Social History Social Habit Start Date Stop Date Quantity Comments Source [facility] to [facility] Smoking Status Start Date Stop Date Source Unknown if ever smoked [facility] Medications This patient has no known medications. Procedures This patient has no known procedures. Encounters Start End Encounter Admission Attending Care Care Encounter Source Date/Time Date/Time Type Type Clinicians Facility Department ID 2018-02-07 Inpatient E [facility] [address] [facility] 19:22:00 2018-01-27 Inpatient E [facility] [address] [facility] H 06:41:00 2020-05-06 2020-05-06 Outpatient [facility] [id number] Univers 11:40:00 11:40:00 [facility] 2019-08-27 2019-08-27 Laboratory Lab, Adc Fam Pob I [facility] [id number] Univers 11:45:25 12:05:25 Only Mary Kay [id number] [id number] Adrian as Professio [phone] [facility] [address] 2019-08-27 2019-08-27 Outpatient R TULIO MERCADO [facility] [id number] Univers 11:00:00 11:00:00 ity of [facility] 2019-08-27 2019-08-27 Letter Doctor LOLI [id number] Univers 00:00:00 00:00:00 (Out) Unassigned, LIANNE [id number] ity of New Site [facility] [id number] [facility] as [phone] [facility] [address] Results Test Description Test Time Test Comments Results Result Comments Source BLOOD CULTURE 2016-09-06 11:00:00 Test Item Value Reference Range Interpretation Comme nts CULTURE (BEAKER) (test code = 1095) No growth in 5 days BLOOD [id number] 11:00:00 Test Item Value Reference Range Interpretation Comments CULTURE (BEAKER) (test No growth in 5 days code = 1095) CBC W/PLT COUNT & AUTO [id number] 08:38:00 Test Item Value Reference Range Interpretation Comments WHITE BLOOD CELL COUNT (BEAKER) 9.6 K/ L 3.5-10.5 (test code = 775) RED BLOOD CELL COUNT (BEAKER) 3.00 M/ L 3.93-5.22 L (test code = 761) HEMOGLOBIN (BEAKER) (test code = 7.4 GM/DL 11.2-15.7 L 410) HEMATOCRIT (BEAKER) (test code = 24.4 % 34.1-44.9 L 411) MEAN CORPUSCULAR VOLUME (BEAKER) 81.3 fL 79.4-94.8 (test code = 753) MEAN CORPUSCULAR HEMOGLOBIN 24.7 pg 25.6-32.2 L (BEAKER) (test code = 751) MEAN CORPUSCULAR HEMOGLOBIN CONC 30.3 GM/DL 32.2-35.5 L (BEAKER) (test code = 752) RED CELL DISTRIBUTION WIDTH 22.5 % 11.7-14.4 H (BEAKER) (test code = 412) PLATELET COUNT (BEAKER) (test code 91 K/CU MM 150-450 L = 756) MEAN PLATELET VOLUME (BEAKER) 10.3 fL 9.4-12.3 (test code = 754) NUCLEATED RED BLOOD CELLS (BEAKER) 0 /100 WBC 0-0 (test code = 413) NEUTROPHILS RELATIVE PERCENT 71 % (BEAKER) (test code = 429) LYMPHOCYTES RELATIVE PERCENT 15 % (BEAKER) (test code = 430) MONOCYTES RELATIVE PERCENT 10 % (BEAKER) (test code = 431) EOSINOPHILS RELATIVE PERCENT 4 % (BEAKER) (test code = 432) BASOPHILS RELATIVE PERCENT 1 % (BEAKER) (test code = 437) NEUTROPHILS ABSOLUTE COUNT 6.82 K/ L 1.56-6.13 H (BEAKER) (test code = 670) LYMPHOCYTES ABSOLUTE COUNT 1.39 K/ L 1.18-3.74 (BEAKER) (test code = 414) MONOCYTES ABSOLUTE COUNT (BEAKER) 0.92 K/ L 0.24-0.36 H (test code = 415) EOSINOPHILS ABSOLUTE COUNT 0.37 K/ L 0.04-0.36 H (BEAKER) (test code = 416) BASOPHILS ABSOLUTE COUNT (BEAKER) 0.06 K/ L 0.01-0.08 (test code = 417) IMMATURE GRANULOCYTES-RELATIVE 1 % 0-1 PERCENT (BEAKER) (test code = 2801) COMPREHENSIVE METABOLIC [id number] 07:11:00 Test Item Value Reference Range Interpretation Comments TOTAL PROTEIN 6.5 gm/dL 6.0-8.3 (BEAKER) (test code = 770) ALBUMIN (BEAKER) 2.2 g/dL 3.5-5.0 L (test code = 1145) ALKALINE PHOSPHATASE 111 U/L 40-150 (BEAKER) (test code = 346) BILIRUBIN TOTAL 3.2 mg/dL 0.2-1.2 H (BEAKER) (test code = 377) SODIUM (BEAKER) (test 139 meq/L 136-145 code = 381) POTASSIUM (BEAKER) 3.2 meq/L 3.5-5.1 L (test code = 379) CHLORIDE (BEAKER) 105 meq/L 98-107 (test code = 382) CO2 (BEAKER) (test 27 meq/L 22-29 code = 355) BLOOD UREA NITROGEN 4 mg/dL 7-21 L (BEAKER) (test code = 354) CREATININE (BEAKER) 0.63 mg/dL 0.57-1.25 (test code = 358) GLUCOSE RANDOM 107 mg/dL 70-105 H (BEAKER) (test code = 652) CALCIUM (BEAKER) 7.7 mg/dL 8.4-10.2 L (test code = 697) AST (SGOT) (BEAKER) 55 U/L 5-34 H (test code = 353) ALT (SGPT) (BEAKER) 17 U/L 6-55 (test code = 347) EGFR (BEAKER) (test 98 mL/min/1.73 ESTIMA MARY GFR IS code = 1092) sq m NOT ACCURATE CREATININE CLEARANCE IN PREDICTING GLOMERULAR FILTRATION RATE . ESTIMATED GFR I S NOT APPLICABLE FOR DIALYSIS PATIEN TS. Specimen slightly ictericPROTHROMBIN [id number] 06:07:00 Test Item Value Reference Range Interpretation Comments PROTIME (BEAKER) (test code = 23.2 seconds 11.7-14.7 H 759) INR (BEAKER) (test code = 370) 2.1 <=5.9 RECOMMENDED COUMADIN/WARFARIN INR THERAPY RANGESSTANDARD DOSE: 2.0 - 3.0 Includes: PROPHYLAXIS forvenous thrombosis, systemic embolization; TREATMENT for venous thrombosis and/or pulmonary embolus.HIGH RISK: Target INR is 2.5-3.5 for patients with mechanical heart valves.BODY FLUID CULTURE + GRAM [id number] 00:14:00 Test Item Value Reference Range Interpretation Comments CULTURE (BEAKER) (test code No growth = 1095) GRAM STAIN RESULT (BEAKER) No WBCs (test code = 1123) GRAM STAIN RESULT (BEAKER) No organisms seen (test code = 72200) HEMOGLOBIN AND [id number] 23:16:00 Test Item Value Reference Range Interpretation Comments HEMOGLOBIN (BEAKER) (test code = 7.4 GM/DL 11.2-15.7 L 410) HEMATOCRIT (BEAKER) (test code = 24.6 % 34.1-44.9 L 411) HEMOGLOBIN AND [id number] 10:55:00 Test Item Value Reference Range Interpretation Comments HEMOGLOBIN (BEAKER) (test code = 8.2 GM/DL 11.2-15.7 L 410) HEMATOCRIT (BEAKER) (test code = 27.2 % 34.1-44.9 L 411) CBC W/PLT COUNT & AUTO [id number] 09:09:00 Test Item Value Reference Range Interpretation Comments WHITE BLOOD CELL COUNT 7.7 K/ L 3.5-10.5 (BEAKER) (test code = 775) RED BLOOD CELL COUNT 3.02 M/ L 3.93-5.22 L (BEAKER) (test code = 761) HEMOGLOBIN (BEAKER) 7.4 GM/DL 11.2-15.7 L (test code = 410) HEMATOCRIT (BEAKER) 24.0 % 34.1-44.9 L (test code = 411) MEAN CORPUSCULAR VOLUME 79.5 fL 79.4-94.8 (BEAKER) (test code = 753) MEAN CORPUSCULAR 24.5 pg 25.6-32.2 L HEMOGLOBIN (BEAKER) (test code = 751) MEAN CORPUSCULAR 30.8 GM/DL 32.2-35.5 L HEMOGLOBIN CONC (BEAKER) (test code = 752) RED CELL DISTRIBUTION 22.2 % 11.7-14.4 H WIDTH (BEAKER) (test code = 412) PLATELET COUNT (BEAKER) 77 K/CU MM 150-450 L (test code = 756) MEAN PLATELET VOLUME fL 9.4-12.3 Unable to report due (BEAKER) (test code = to abn ormal Platelet 754) population distribution. NUCLEATED RED BLOOD 0 /100 WBC 0-0 CELLS (BEAKER) (test code = 413) NEUTROPHILS RELATIVE 69 % PERCENT (BEAKER) (test code = 429) LYMPHOCYTES RELATIVE 15 % PERCENT (BEAKER) (test code = 430) MONOCYTES RELATIVE 11 % PERCENT (BEAKER) (test code = 431) EOSINOPHILS RELATIVE 4 % PERCENT (BEAKER) (test code = 432) BASOPHILS RELATIVE 1 % PERCENT (BEAKER) (test code = 437) NEUTROPHILS ABSOLUTE 5.26 K/ L 1.56-6.13 COUNT (BEAKER) (test code = 670) LYMPHOCYTES ABSOLUTE 1.16 K/ L 1.18-3.74 L COUNT (BEAKER) (test code = 414) MONOCYTES ABSOLUTE 0.84 K/ L 0.24-0.36 H COUNT (BEAKER) (test code = 415) EOSINOPHILS ABSOLUTE 0.30 K/ L 0.04-0.36 COUNT (BEAKER) (test code = 416) BASOPHILS ABSOLUTE 0.06 K/ L 0.01-0.08 COUNT (BEAKER) (test code = 417) IMMATURE 1 % 0-1 GRANULOCYTES-RELATIVE PERCENT (BEAKER) (test code = 2801) COMPREHENSIVE METABOLIC [id number] 07:08:00 Test Item Value Reference Range Interpretation Comments TOTAL PROTEIN 6.8 gm/dL 6.0-8.3 (BEAKER) (test code = 770) ALBUMIN (BEAKER) 2.3 g/dL 3.5-5.0 L (test code = 1145) ALKALINE PHOSPHATASE 116 U/L 40-150 (BEAKER) (test code = 346) BILIRUBIN TOTAL 3.3 mg/dL 0.2-1.2 H (BEAKER) (test code = 377) SODIUM (BEAKER) (test 137 meq/L 136-145 code = 381) POTASSIUM (BEAKER) 3.0 meq/L 3.5-5.1 L (test code = 379) CHLORIDE (BEAKER) 103 meq/L 98-107 (test code = 382) CO2 (BEAKER) (test 27 meq/L 22-29 code = 355) BLOOD UREA NITROGEN 5 mg/dL 7-21 L (BEAKER) (test code = 354) CREATININE (BEAKER) 0.61 mg/dL 0.57-1.25 (test code = 358) GLUCOSE RANDOM 112 mg/dL 70-105 H (BEAKER) (test code = 652) CALCIUM (BEAKER) 7.5 mg/dL 8.4-10.2 L (test code = 697) AST (SGOT) (BEAKER) 55 U/L 5-34 H (test code = 353) ALT (SGPT) (BEAKER) 17 U/L 6-55 (test code = 347) EGFR (BEAKER) (test 102 ESTIMATE D GFR IS code = 1092) mL/min/1.73 sq NOT ACCURA TE m CREATININE CLEARANCE IN PREDICTING GLOMERULAR FILTRATION RATE . ESTIMATED GFR I S NOT APPLICABLE FOR DIALYSIS PATIEN TS. Specimen slightly ictericPROTHROMBIN [id number] 06:40:00 Test Item Value Reference Range Interpretation Comments PROTIME (BEAKER) (test code = 23.1 seconds 11.7-14.7 H 759) INR (BEAKER) (test code = 370) 2.0 <=5.9 RECOMMENDED COUMADIN/WARFARIN INR THERAPY RANGESSTANDARD DOSE: 2.0 - 3.0 Includes: PROPHYLAXIS forvenous thrombosis, systemic embolization; TREATMENT for venous thrombosis and/or pulmonary embolus.HIGH RISK: Target INR is 2.5-3.5 for patients with mechanical heart valves.HEMOGLOBIN AND [id number] 21:22:00 Test Item Value Reference Range Interpretation Comments HEMOGLOBIN (BEAKER) (test code = 8.0 GM/DL 11.2-15.7 L 410) HEMATOCRIT (BEAKER) (test code = 26.2 % 34.1-44.9 L 411) ANTI-NUCLEAR ANTIBODY (FLORES)2016-09-02 13:41:00 Test Item Value Reference Range Interpretation Comments ANTI-NUCLEAR ANTIBODY (FLORES) (BEAKER) Negative Negative (test code = 418) CBC W/PLT COUNT & AUTO [id number] 06:28:00 Test Item Value Reference Range Interpretation Comments WHITE BLOOD CELL COUNT (BEAKER) 5.6 K/ L 3.5-10.5 (test code = 775) RED BLOOD CELL COUNT (BEAKER) 2.98 M/ L 3.93-5.22 L (test code = 761) HEMOGLOBIN (BEAKER) (test code = 7.4 GM/DL 11.2-15.7 L 410) HEMATOCRIT (BEAKER) (test code = 23.7 % 34.1-44.9 L 411) MEAN CORPUSCULAR VOLUME (BEAKER) 79.5 fL 79.4-94.8 (test code = 753) MEAN CORPUSCULAR HEMOGLOBIN 24.8 pg 25.6-32.2 L (BEAKER) (test code = 751) MEAN CORPUSCULAR HEMOGLOBIN CONC 31.2 GM/DL 32.2-35.5 L (BEAKER) (test code = 752) RED CELL DISTRIBUTION WIDTH 21.3 % 11.7-14.4 H (BEAKER) (test code = 412) PLATELET COUNT (BEAKER) (test code 77 K/CU MM 150-450 L = 756) MEAN PLATELET VOLUME (BEAKER) 10.4 fL 9.4-12.3 (test code = 754) NUCLEATED RED BLOOD CELLS (BEAKER) 0 /100 WBC 0-0 (test code = 413) NEUTROPHILS RELATIVE PERCENT 63 % (BEAKER) (test code = 429) LYMPHOCYTES RELATIVE PERCENT 21 % (BEAKER) (test code = 430) MONOCYTES RELATIVE PERCENT 12 % (BEAKER) (test code = 431) EOSINOPHILS RELATIVE PERCENT 3 % (BEAKER) (test code = 432) BASOPHILS RELATIVE PERCENT 1 % (BEAKER) (test code = 437) NEUTROPHILS ABSOLUTE COUNT 3.53 K/ L 1.56-6.13 (BEAKER) (test code = 670) LYMPHOCYTES ABSOLUTE COUNT 1.15 K/ L 1.18-3.74 L (BEAKER) (test code = 414) MONOCYTES ABSOLUTE COUNT (BEAKER) 0.68 K/ L 0.24-0.36 H (test code = 415) EOSINOPHILS ABSOLUTE COUNT 0.17 K/ L 0.04-0.36 (BEAKER) (test code = 416) BASOPHILS ABSOLUTE COUNT (BEAKER) 0.05 K/ L 0.01-0.08 (test code = 417) IMMATURE GRANULOCYTES-RELATIVE 1 % 0-1 PERCENT (BEAKER) (test code = 2801) COMPREHENSIVE METABOLIC [id number] 05:34:00 Test Item Value Reference Range Interpretation Comments TOTAL PROTEIN 7.0 gm/dL 6.0-8.3 (BEAKER) (test code = 770) ALBUMIN (BEAKER) 2.4 g/dL 3.5-5.0 L (test code = 1145) ALKALINE PHOSPHATASE 120 U/L 40-150 (BEAKER) (test code = 346) BILIRUBIN TOTAL 2.7 mg/dL 0.2-1.2 H (BEAKER) (test code = 377) SODIUM (BEAKER) (test 137 meq/L 136-145 code = 381) POTASSIUM (BEAKER) 3.7 meq/L 3.5-5.1 (test code = 379) CHLORIDE (BEAKER) 106 meq/L 98-107 (test code = 382) CO2 (BEAKER) (test 25 meq/L 22-29 code = 355) BLOOD UREA NITROGEN 9 mg/dL 7-21 (BEAKER) (test code = 354) CREATININE (BEAKER) 0.61 mg/dL 0.57-1.25 (test code = 358) GLUCOSE RANDOM 135 mg/dL 70-105 H (BEAKER) (test code = 652) CALCIUM (BEAKER) 7.3 mg/dL 8.4-10.2 L (test code = 697) AST (SGOT) (BEAKER) 67 U/L 5-34 H (test code = 353) ALT (SGPT) (BEAKER) 21 U/L 6-55 (test code = 347) EGFR (BEAKER) (test 102 ESTIMATE D GFR IS code = 1092) mL/min/1.73 sq NOT ACCURA TE m CREATININE CLEARANCE IN PREDICTING GLOMERULAR FILTRATION RATE . ESTIMATED GFR I S NOT APPLICABLE FOR DIALYSIS PATIEN TS. Specimen slightly ictericPROTHROMBIN [id number] 05:31:00 Test Item Value Reference Range Interpretation Comments PROTIME (BEAKER) (test code = 21.1 seconds 11.7-14.7 H 759) INR (BEAKER) (test code = 370) 1.8 <=5.9 RECOMMENDED COUMADIN/WARFARIN INR THERAPY RANGESSTANDARD DOSE: 2.0 - 3.0 Includes: PROPHYLAXIS forvenous thrombosis, systemic embolization; TREATMENT for venous thrombosis and/or pulmonary embolus.HIGH RISK: Target INR is 2.5-3.5 for patients with mechanical heart valves.HEMOGLOBIN AND [id number] 05:26:00 Test Item Value Reference Range Interpretation Comments HEMOGLOBIN (BEAKER) (test code = 7.4 GM/DL 11.2-15.7 L 410) HEMATOCRIT (BEAKER) (test code = 23.7 % 34.1-44.9 L 411) HEMOGLOBIN AND [id number] 23:31:00 Test Item Value Reference Range Interpretation Comments HEMOGLOBIN (BEAKER) (test code = 7.1 GM/DL 11.2-15.7 L 410) HEMATOCRIT (BEAKER) (test code = 22.9 % 34.1-44.9 L 411) URINALYSIS W/ [id number] 22:47:00 Test Item Value Reference Range Interpretation Comments COLOR (BEAKER) (test code = Yellow 470) CLARITY (BEAKER) (test code = Clear 469) SPECIFIC GRAVITY UA (BEAKER) 1.017 1.001-1.035 (test code = 468) PH UA (BEAKER) (test code = 6.0 5.0-8.0 467) PROTEIN UA (BEAKER) (test code Negative Negative = 464) GLUCOSE UA (BEAKER) (test code Negative Negative = 365) KETONES UA (BEAKER) (test code Negative Negative = 371) BILIRUBIN UA (BEAKER) (test Negative Negative code = 462) BLOOD UA (BEAKER) (test code = Trace Negative A 461) NITRITE UA (BEAKER) (test code Positive Negative A = 465) LEUKOCYTE ESTERASE UA (BEAKER) Negative Negative (test code = 466) UROBILINOGEN UA (BEAKER) (test 0.2 mg/dL 0.2-1.0 code = 463) RBC UA (BEAKER) (test code = 1 /HPF 519) WBC UA (BEAKER) (test code = 5 /HPF 520) BACTERIA (BEAKER) (test code = Rare 517) MUCUS (BEAKER) (test code = Rare 1574) SQUAMOUS EPITHELIAL (BEAKER) 1 /HPF (test code = 516) SOURCE(BEAKER) (test code = Urine, Voided 7095) BODY FLUID CELL COUNT WITH [id number] 20:32:00 Test Item Value Reference Range Interpretation Comments APPEARANCE FLUID (BEAKER) Slightly Hazy Clear A (test code = 510) COLOR FLUID (BEAKER) (test Straw Colorless, Straw code = 511) RBC FLUID (BEAKER) (test code 230 /cu mm <=1 H = 513) ADJUSTED WBC FLUID (BEAKER) 105 /cu mm <=5 H (test code = 1691) LINING CELLS (BEAKER) (test 5 /cu mm <=1 H code = 1590) NEUTROPHILS FLUID (BEAKER) 11 % (test code = 1656) LYMPHS FLUID (BEAKER) (test 8 % code = 488) MONO/MACROPHAGE FLUID (BEAKER) 81 % (test code = 489) EOSINOPHILS FLUID (BEAKER) 0 % (test code = 491) BASO FLUID (BEAKER) (test code 0 % = 492) CONTAINER BODY FLUID (BEAKER) EDTA Tube (test code = 2873) HEMOGLOBIN AND [id number] 17:45:00 Test Item Value Reference Range Interpretation Comments HEMOGLOBIN (BEAKER) (test code = 7.0 GM/DL 11.2-15.7 L 410) HEMATOCRIT (BEAKER) (test code = 22.5 % 34.1-44.9 L 411) ALBUMIN, BODY [id number] 17:14:00 Test Item Value Reference Range Interpretation Comments ALBUMIN FLUID (BEAKER) (test code = < gm/dL 501) Reference Range: No Normals Assay performance has not been validated for this type of specimen.PROTEIN, BODY [id number] 17:14:00 Test Item Value Reference Range Interpretation Comments PROTEIN FLUID (BEAKER) (test code = < g/dL 579) Absence of reference range indicates that normals have not been defined.Assay performance has not been validated for this type of specimen.TRIGLYCERIDES, BODY [id number] 17:10:00 Test Item Value Reference Range Interpretation Comments TRIGLYCERIDES FLUID (BEAKER) (test 12 mg/dL code = 539) Reference Range: No Normals Assay performance has not been validated for this type of specimen.HEMOGLOBIN AND [id number] 13:36:00 Test Item Value Reference Range Interpretation Comments HEMOGLOBIN (BEAKER) (test code = 7.0 GM/DL 11.2-15.7 L 410) HEMATOCRIT (BEAKER) (test code = 22.5 % 34.1-44.9 L 411) CBC W/PLT COUNT & AUTO [id number] 09:05:00 Test Item Value Reference Range Interpretation Comments WHITE BLOOD CELL COUNT (BEAKER) 6.2 K/ L 3.5-10.5 (test code = 775) RED BLOOD CELL COUNT (BEAKER) 3.12 M/ L 3.93-5.22 L (test code = 761) HEMOGLOBIN (BEAKER) (test code = 7.7 GM/DL 11.2-15.7 L 410) HEMATOCRIT (BEAKER) (test code = 25.4 % 34.1-44.9 L 411) MEAN CORPUSCULAR VOLUME (BEAKER) 81.4 fL 79.4-94.8 (test code = 753) MEAN CORPUSCULAR HEMOGLOBIN 24.7 pg 25.6-32.2 L (BEAKER) (test code = 751) MEAN CORPUSCULAR HEMOGLOBIN CONC 30.3 GM/DL 32.2-35.5 L (BEAKER) (test code = 752) RED CELL DISTRIBUTION WIDTH 21.4 % 11.7-14.4 H (BEAKER) (test code = 412) PLATELET COUNT (BEAKER) (test code 90 K/CU MM 150-450 L = 756) MEAN PLATELET VOLUME (BEAKER) 10.1 fL 9.4-12.3 (test code = 754) NUCLEATED RED BLOOD CELLS (BEAKER) 0 /100 WBC 0-0 (test code = 413) NEUTROPHILS RELATIVE PERCENT 58 % (BEAKER) (test code = 429) LYMPHOCYTES RELATIVE PERCENT 27 % (BEAKER) (test code = 430) MONOCYTES RELATIVE PERCENT 13 % (BEAKER) (test code = 431) EOSINOPHILS RELATIVE PERCENT 1 % (BEAKER) (test code = 432) BASOPHILS RELATIVE PERCENT 1 % (BEAKER) (test code = 437) NEUTROPHILS ABSOLUTE COUNT 3.57 K/ L 1.56-6.13 (BEAKER) (test code = 670) LYMPHOCYTES ABSOLUTE COUNT 1.69 K/ L 1.18-3.74 (BEAKER) (test code = 414) MONOCYTES ABSOLUTE COUNT (BEAKER) 0.79 K/ L 0.24-0.36 H (test code = 415) EOSINOPHILS ABSOLUTE COUNT 0.06 K/ L 0.04-0.36 (BEAKER) (test code = 416) BASOPHILS ABSOLUTE COUNT (BEAKER) 0.04 K/ L 0.01-0.08 (test code = 417) IMMATURE GRANULOCYTES-RELATIVE 1 % 0-1 PERCENT (BEAKER) (test code = 2801) (MANUAL DIFFERENTIAL)2016-09-01 09:05:00 Test Item Value Reference Range Interpretation Comments TOTAL COUNTED (BEAKER) (test code = 1351) WBC MORPHOLOGY (BEAKER) (test code = Normal 487) PLT MORPHOLOGY (BEAKER) (test code = Normal 486) HYPOCHROMIA (BEAKER) (test code = 963) 1+ few POLYCHROMATOPHILLIC RBCS(BEAKER) (test 1+ few code = 478) TARGET CELLS (BEAKER) (test code = 1+ few 480) TEAR DROP CELLS (BEAKER) (test code = 1+ few 481) [id number] 07:47:00 Test Item Value Reference Range Interpretation Comments FERRITIN (BEAKER) (test code = 361) 17 ng/mL 5-275 Effective 12/24/2013: Reference Range ChangeNew: Male 5-275 Previous: Male 22-322 Female 5-275 Female 10-291ALPHA FETOPROTEIN (AFP), TUMOR [id number] 07:47:00 Test Item Value Reference Range Interpretation Comments ALPHA-FETOPROTEIN (BEAKER) (test 3.0 ng/mL <10.0 code = 1094) Effective 12/24/2013: Reference Range ChangeNew: <10.0 Previous: 0.0-8.0 IRON, TIBC, % SAT. (WITHOUT FERRITIN)2016-09-01 07:34:00 Test Item Value Reference Range Interpretation Comments IRON (BEAKER) (test code = 547) 25 ug/dL 40-160 L TOTAL IRON BINDING CAPACITY 276 ug/dL 250-450 (BEAKER) (test code = 769) IRON % SATURATION (2) (BEAKER) 9 % 20-55 L (test code = 2590) LACTIC ACID, VENOUS, WHOLE [id number] 07:10:00 Test Item Value Reference Range Interpretation Comments LACTATE BLOOD VENOUS 3.2 mmol/L 0.5-2.2 H Specime n slightly (2) (BEAKER) (test hemolyzed code = 2872) Effective 06/10/2015: Units/Reference Range ChangeNew: 0.5-2.2 mmol/L Previous: 5-20 mg/dLHEMOGLOBIN AND [id number] 06:51:00 Test Item Value Reference Range Interpretation Comments HEMOGLOBIN (BEAKER) (test code = 7.2 GM/DL 11.2-15.7 L 410) HEMATOCRIT (BEAKER) (test code = 23.3 % 34.1-44.9 L 411) HEPATITIS A [id number] 04:15:00 Test Item Value Reference Range Interpretation Comments HEPATITIS A IGM ANTIBODY (BEAKER) Nonreactive Nonreactive (test code = 498) HEPATITIS A IGG ANTIBODY (BEAKER) Reactive Nonreactive A (test code = 2797) CARCINOEMBRYONIC ANTIGEN (CEA)2016-09-01 04:05:00 Test Item Value Reference Range Interpretation Comments CARCINOEMBRYONIC ANTIGEN (BEAKER) 8.6 ng/mL 0.0-5.0 H (test code = 685) TSH/FREE T4 IF [id number] 04:05:00 Test Item Value Reference Range Interpretation Comments THYROID STIMULATING HORMONE 0.43 uIU/mL 0.35-4.94 (BEAKER) (test code = 772) HEPATITIS PANEL, [id number] 04:01:00 Test Item Value Reference Range Interpretation Comments HEPATITIS A IGM ANTIBODY (BEAKER) Nonreactive Nonreactive (test code = 498) HEPATITIS B CORE IGM ANTIBODY Nonreactive Nonreactive (BEAKER) (test code = 645) HEPATITIS C ANTIBODY (BEAKER) Nonreactive Nonreactive (test code = 367) HEPATITIS B SURFACE ANTIGEN (2) Nonreactive Nonreactive (BEAKER) (test code = 2585) HEPATITIS B [id number] 04:01:00 Test Item Value Reference Range Interpretation Comments HEPATITIS B CORE TOTAL ANTIBODY Nonreactive Nonreactive (BEAKER) (test code = 497) HEPATITIS B SURFACE ANTIBODY 24.0 mIU/mL <8.0 H (BEAKER) (test code = 647) HEPATITIS B SURFACE ANTIGEN (2) Nonreactive Nonreactive (BEAKER) (test code = 2585) HIV-1 ANTIGEN WITH HIV-1/2 [id number] 04:01:00 Test Item Value Reference Range Interpretation Comments HIV-1 ANTIGEN WITH HIV 1\T\2 Nonreactive Nonreactive ANTIBODY (2) (BEAKER) (test code = 2586) [id number] 03:45:00 Test Item Value Reference Range Interpretation Comments AMMONIA (BEAKER) (test code = 348) 80 mol/L 18-72 H LACTIC ACID, VENOUS, WHOLE [id number] 03:45:00 Test Item Value Reference Range Interpretation Comments LACTATE BLOOD VENOUS 3.7 mmol/L 0.5-2.2 H Specime n slightly (2) (BEAKER) (test hemolyzed code = 2872) Effective 06/10/2015: Units/Reference Range ChangeNew: 0.5-2.2 mmol/L Previous: 5-20 mg/dLCOMPREHENSIVE METABOLIC [id number] 03:35:00 Test Item Value Reference Range Interpretation Comments TOTAL PROTEIN 7.0 gm/dL 6.0-8.3 (BEAKER) (test code = 770) ALBUMIN (BEAKER) 2.4 g/dL 3.5-5.0 L (test code = 1145) ALKALINE PHOSPHATASE 123 U/L 40-150 (BEAKER) (test code = 346) BILIRUBIN TOTAL 1.8 mg/dL 0.2-1.2 H (BEAKER) (test code = 377) SODIUM (BEAKER) (test 139 meq/L 136-145 code = 381) POTASSIUM (BEAKER) 4.9 meq/L 3.5-5.1 (test code = 379) CHLORIDE (BEAKER) 109 meq/L 98-107 H (test code = 382) CO2 (BEAKER) (test 21 meq/L 22-29 L code = 355) BLOOD UREA NITROGEN 11 mg/dL 7-21 (BEAKER) (test code = 354) CREATININE (BEAKER) 0.72 mg/dL 0.57-1.25 (test code = 358) GLUCOSE RANDOM 90 mg/dL 70-105 (BEAKER) (test code = 652) CALCIUM (BEAKER) 7.1 mg/dL 8.4-10.2 L (test code = 697) AST (SGOT) (BEAKER) 74 U/L 5-34 H (test code = 353) ALT (SGPT) (BEAKER) 21 U/L 6-55 (test code = 347) EGFR (BEAKER) (test 84 mL/min/1.73 ESTIMA MARY GFR IS code = 1092) sq m NOT ACCURATE CREATININE CLEARANCE IN PREDICTING GLOMERULAR FILTRATION RATE . ESTIMATED GFR I S NOT APPLICABLE FOR DIALYSIS PATIEN TS. [id number] 03:28:00 Test Item Value Reference Range Interpretation Comments PHOSPHORUS (BEAKER) (test code = 3.8 mg/dL 2.3-4.7 604) [id number] 03:28:00 Test Item Value Reference Range Interpretation Comments MAGNESIUM (BEAKER) (test code = 1.5 mg/dL 1.6-2.6 L 627) PROTHROMBIN [id number] 03:18:00 Test Item Value Reference Range Interpretation Comments PROTIME (BEAKER) (test code = 22.6 seconds 11.7-14.7 H 759) INR (BEAKER) (test code = 370) 2.0 <=5.9 RECOMMENDED COUMADIN/WARFARIN INR THERAPY RANGESSTANDARD DOSE: 2.0 - 3.0 Includes: PROPHYLAXIS forvenous thrombosis, systemic embolization; TREATMENT for venous thrombosis and/or pulmonary embolus.HIGH RISK: Target INR is 2.5-3.5 for patients with mechanical heart valves.
--- NOTE | 2021-08-26 16:21 | RAD REPORT ---
EXAM DESCRIPTION: RAD - Fluoroscopy <1 Hour - 08/26/2021 1:01 pm CLINICAL HISTORY: RT HIP RODDING COMPARISON: No comparisons FINDINGS/IMPRESSION: Five intraoperative fluoroscopic images were submitted demonstrating placement of an intramedullary yun and 2 screws in the right hip. This is for an intertrochanteric hip fracture . Cumulative dose: 32.2 mGy Fluoro time: 3.1 minutes
[2021-08-26 19:57] LABS: Urine Bacteria <20 /HPF (<20); Urine RBC <5 /HPF (None Seen)
[2021-08-26] MEDS ORDERED: dexAMETHasone 4 MG/ML VIAL IV ONE (20:48)
[2021-08-26] MEDS ORDERED: DIPHENHYDRAMINE 25 MG TAB/CAP PO PRN (20:49)
[2021-08-26 21:29] LABS: Urine Bilirubin Negative (Negative); Urine Blood 1+ (Negative); Urine Clarity Clear (Clear); Urine Color Yellow (Yellow); Urine Glucose Negative (Negative); Urine Protein Negative (Negative); Urine Urobilinogen 0.2 mg/dL (0.2-1.0)
[2021-08-26 21:30] LABS: Urine Bacteria <20 /HPF (<20); Urine RBC <5 /HPF (None Seen)
--- NOTE | 2021-08-26 23:50 | OP ---
Date of Procedure: 08/26/2021 Surgeon: Yair Tee MD Preoperative Diagnosis: Complex proximal right femur fracture consistent with a reverse obliquity in tertrochanteric fracture. Postoperative Diagnosis: Complex proximal right femur fracture consistent with a reverse obliquity i ntertrochanteric fracture. Procedure: Combination of closed reduction with the use of intramedullary yun fixation using the Bio met Affixus nail. Estimated Blood Loss: 100 cc. Complications: There were no complications. Indications: Ms. Brewer is a 61-year-old female who unfortunately fell injuring her right lower extre mity. She was seen and examined in the Emergency Department where x-rays were taken, which demonstra cade a complex comminuted displaced right proximal femur fracture that appeared to be primarily consis tent with a reverse obliquity intertrochanteric fracture. Risks, benefits, and alternatives of diffe rent methods of treating this were discussed with the patient. Also discussed with her that this was a quite a difficult fracture pattern to manage, however, we would proceed with fixation. She says s he understands things as presented and wishes to proceed. Description Of Procedure: The patient was taken to the operating room and placed in supine position. General anesthesia was obtained by the staff. Following this, she was then placed on the fracture table and appropriately positioned. The use of the fracture table and C-arm demonstrated that it was best reduced with some traction as well as some external rotation and perhaps very slight abduction. The right lower extremity was then prepped and draped in usual sterile fashion for procedure. An i ncision is marked out, which demonstrate the greater trochanter is quite a bit further posterior than normally seen. It was taken down carefully through skin and through the fascia. The greater trocha nter was palpated. Care was taken to place the starting awl fairly medial. She has excellent bone i n this area and it is difficult to proceed with a starting awl, however, this is passed without furth er difficulty. This was followed by placement of the guide yun, which passes easily down the shaft. The waste hand is then used down to the level of fracture site. The yun selected is a 130 x 11. I t was then held up over the femur with the use of the gold cannulated guide to demonstrate the probab le location of the cephalomedullary screw incision. This incision was then taken down carefully thro ugh skin and fascia. A finger was placed within the fracture site area and a bone hook was placed on the more distal aspect. It was then pulled laterally to help match. There was internal and externa l rotation done of the foot to help align the fracture site as much as possible; however, it did appe ar that the lateral cortex was fractured in multiple places making absolute reduction extremely diffi cult. Decision was made to move forward with placement of the nail, with care being taken to closely observe the medial aspect of the fracture. This appeared to be the least involved and wanted to moshe ntain reduction of this area as this is more of the weightbearing area. The yun was then placed with some difficulty to appropriate depth. This was followed by placement of cephalomedullary screw, whi ch abuts the nail as the lateral cortex is somewhat blown apart. However, the screws were appropriat christen placed within the head and neck. An antirotation screw was then placed in the same manner. This was followed by placement of a distal dynamic interlocking screw. The fracture itself is viewed as well as placement of the yun and screws appears to be ideal. However, the lateral fracture wall is s omewhat displaced; however, the medial fracture wall appears to be very well reduced. The wounds wer e then irrigated and the fascia was closed in a watertight fashion followed by closure of the skin us ing Vicryl followed by ashley. The patient was then placed in Aquacel dressing, awakened, and taken to recovery room in good condition. No complications. /JASMYN Voice ID: [id number] Report ID: [id number]
[2021-08-27] MEDS: HYDROCODONE/APAP 10/325 TAB PO PRN ×4 (00:03→21:28)
[2021-08-27 03:27] LABS: Absolute Lymphocytes (CBC) 0.4 K/uL (0.7-4.9); Hematocrit 29.9 % (36.0-45.0); Lymphocytes % 9.9 % (15.3-44.8); MCV 101.3 fL (80-100); MPV 7.9 fL (7.6-11.3); RBC Red Blood Cell Count 2.95 M/uL (3.86-4.86)
[2021-08-27 03:47] LABS: Albumin 2.7 g/dL (3.4-5.0); Bilirubin Total 0.8 mg/dL (0.2-1.0); Potassium 3.6 mmol/L (3.5-5.1); Protein, Total 6.3 g/dL (6.4-8.2)
[2021-08-27] MEDS ORDERED: CEFTRIAXONE 1,000 MG in NA CHLORIDE 0.9% 50 ML IVPB SCH (09:00)
[2021-08-27] MEDS: RIFAXIMIN 550 MG PO SCH ×2 (09:00→19:53)
[2021-08-27] MEDS: LACTULOSE 20 GM/30 ML UCUP PO SCH ×4 (09:06→19:52)
[2021-08-27] MEDS: ESCITALOPRAM 20 MG TAB PO SCH (09:07)
[2021-08-27] MEDS: PANTOPRAZOLE 40MG TABLET PO SCH (09:07)
[2021-08-27] MEDS: Rifaximin 550 MG Tab PO SCH ×2 (09:09→19:52)
[2021-08-27] MEDS: APIXABAN 2.5 MG TABLET PO SCH ×2 (10:25→19:52)
[2021-08-28] MEDS: HYDROCODONE/APAP 10/325 TAB PO PRN ×3 (07:42→23:04)
[2021-08-28] MEDS: RIFAXIMIN 550 MG PO SCH ×2 (09:00→21:00)
[2021-08-28] MEDS: ESCITALOPRAM 20 MG TAB PO SCH (09:31)
[2021-08-28] MEDS: levoFLOXacin 500 MG TAB PO SCH (09:31)
[2021-08-28] MEDS: APIXABAN 2.5 MG TABLET PO SCH ×2 (09:31→20:53)
[2021-08-28] MEDS: LACTULOSE 20 GM/30 ML UCUP PO SCH ×4 (09:31→20:54)
[2021-08-28] MEDS: PANTOPRAZOLE 40MG TABLET PO SCH (09:32)
--- NOTE | 2021-08-28 12:08 | PN ---
Date of Progress Note: 08/28/2021 The patient continues to improve both clinically and has no problems urinating since the catheter is out. Appetite has improved. Good intake. Physical therapy has improved as well. Now just awaiting placement. HR/MODL Voice ID: [id number] Report ID: [id number]
[2021-08-28] MEDS: Rifaximin 550 MG Tab PO SCH (20:53)
[2021-08-29] MEDS: HYDROCODONE/APAP 10/325 TAB PO PRN (03:22)
[2021-08-29 03:46] LABS: Absolute Lymphocytes (CBC) 0.9 K/uL (0.7-4.9); Hematocrit 32.3 % (36.0-45.0); Lymphocytes % 12.3 % (15.3-44.8); MCV 101.4 fL (80-100); MPV 7.6 fL (7.6-11.3); RBC Red Blood Cell Count 3.19 M/uL (3.86-4.86)
[2021-08-29 04:05] LABS: Potassium 2.8 mmol/L (3.5-5.1)
[2021-08-29] MEDS ORDERED: NA CHLORIDE 0.9% 500 ML ONE (04:36)
[2021-08-29] MEDS: KCL 20 MEQ/100 mL IVPB 20 MEQ/100 ML BAG IV SCH ×3 (04:36→09:00)
[2021-08-29] MEDS: PANTOPRAZOLE 40MG TABLET PO SCH (08:48)
[2021-08-29] MEDS: LACTULOSE 20 GM/30 ML UCUP PO SCH ×2 (08:48→21:43)
[2021-08-29] MEDS: ESCITALOPRAM 20 MG TAB PO SCH (08:48)
[2021-08-29] MEDS: APIXABAN 2.5 MG TABLET PO SCH ×2 (08:48→21:43)
[2021-08-29] MEDS: levoFLOXacin 500 MG TAB PO SCH (08:48)
[2021-08-29] MEDS: Rifaximin 550 MG Tab PO SCH ×2 (08:49→21:43)
[2021-08-29] MEDS ORDERED: ONDANSETRON 4 MG/2 ML VIAL IV PRN (15:06)
[2021-08-29] MEDS ORDERED: LORAZEPAM 1 MG TABLET PO PRN (16:33)
[2021-08-30 04:11] LABS: Magnesium 1.7 mg/dL (1.8-2.4)
[2021-08-30 04:15] LABS: Potassium 2.9 mmol/L (3.5-5.1)
[2021-08-30] MEDS ORDERED: MAGNESIUM SULFATE 1 gm IVPB 1 GM/100 ML BAG IV ONE (06:02)
[2021-08-30] MEDS ORDERED: POTASSIUM CL SA 10 MEQ TAB PO ONE (06:54)
[2021-08-30] MEDS: PANTOPRAZOLE 40MG TABLET PO SCH (09:30)
[2021-08-30] MEDS: LACTULOSE 20 GM/30 ML UCUP PO SCH ×2 (09:30→21:45)
[2021-08-30] MEDS: ESCITALOPRAM 20 MG TAB PO SCH (09:30)
[2021-08-30] MEDS: HYDROCODONE/APAP 10/325 TAB PO PRN ×2 (09:31→21:48)
[2021-08-30] MEDS: APIXABAN 2.5 MG TABLET PO SCH ×2 (09:31→21:45)
[2021-08-30] MEDS: Rifaximin 550 MG Tab PO SCH ×2 (09:31→21:45)
[2021-08-30] MEDS: levoFLOXacin 500 MG TAB PO SCH (09:32)
[2021-08-30] MEDS ORDERED: POTASSIUM 25 MEQ EFFERV TAB PO ONE ×2 (17:00→21:00)
[2021-08-31 04:40] LABS: Magnesium 2.1 mg/dL (1.8-2.4); Potassium 3.3 mmol/L (3.5-5.1)
[2021-08-31] MEDS ORDERED: POTASSIUM 25 MEQ EFFERV TAB PO ONE ×2 (06:00→14:29)
[2021-08-31] MEDS: HYDROCODONE/APAP 10/325 TAB PO PRN ×2 (06:39→20:17)
--- NOTE | 2021-08-31 07:50 | PN ---
Date of Progress Note: 08/27/2021 The patient seems to be doing quite well. Vital signs are stable. Discussion was held as far as her disposition is concerned. A SNF is probably what is indicated. We will discontinue her Rocephin an d start Levaquin and discontinue her Bledsoe in the a.m. I have started a low-dose Eliquis and we will continue to monitor her blood work. HR/MODL Voice ID: [id number] Report ID: [id number]
[2021-08-31] MEDS: Rifaximin 550 MG Tab PO SCH ×2 (09:45→20:17)
[2021-08-31] MEDS: ESCITALOPRAM 20 MG TAB PO SCH (09:45)
[2021-08-31] MEDS: APIXABAN 2.5 MG TABLET PO SCH ×2 (09:46→20:17)
[2021-08-31] MEDS: levoFLOXacin 500 MG TAB PO SCH (09:46)
[2021-08-31] MEDS: PANTOPRAZOLE 40MG TABLET PO SCH (09:46)
[2021-08-31] MEDS: LACTULOSE 20 GM/30 ML UCUP PO SCH ×2 (09:46→20:17)
--- NOTE | 2021-08-31 12:38 | EKG ---
Test Date: 2021-08-30 Test Time: 14:39:14 Saxophone Assembler: JUAN MEASUREMENT RESULTS: Intervals: Rate: 115 WA: 148 QRSD: 82 QT: 336 QTc: 464 [place]: P: 44 WA: 148 QRS: 36 T: 22 INTERPRETIVE STATEMENTS: Sinus tachycardia Otherwise normal ECG Compared to ECG 08/25/2021 00:39:28 Sinus rhythm no longer present ST (T wave) deviation no longer present Electronically Signed On 08-31-21 12:37:10 CDT by Alec Dowd
--- NOTE | 2021-08-31 18:41 | PN ---
Date of Progress Note: 08/30/2021 The patient seems to be fine as far as the surgical procedure is concerned; however, she has difficul ty at this time of maintaining her potassium. Numerous replacement of methods has been tried to redu ce significant anorexia and nausea. We will continue with smaller doses. Magnesium also be replaced , so waiting placement as well. HR/MODL Voice ID: [id number] Report ID: [id number]
--- NOTE | 2021-08-31 19:05 | PN ---
The patient is doing considerably better today as far as her potassium diet and nausea. Her potassiu m is up to 3.5. We will continue with some replacement. Her magnesium is now normal, so waiting mandeep cement. PT shows progression. Perhaps, she will be notified of her disposition by the morning. HR/MODL Voice ID: [id number] Report ID: [id number]
[2021-09-01 06:23] LABS: Potassium 3.1 mmol/L (3.5-5.1)
[2021-09-01] MEDS ORDERED: POTASSIUM 25 MEQ EFFERV TAB PO ONE ×2 (07:00→14:44)
[2021-09-01] MEDS: PANTOPRAZOLE 40MG TABLET PO SCH (08:12)
[2021-09-01] MEDS: APIXABAN 2.5 MG TABLET PO SCH ×2 (08:12→21:03)
[2021-09-01] MEDS: ESCITALOPRAM 20 MG TAB PO SCH (08:12)
[2021-09-01] MEDS: levoFLOXacin 500 MG TAB PO SCH (08:12)
[2021-09-01] MEDS: HYDROCODONE/APAP 10/325 TAB PO PRN ×3 (08:12→22:08)
[2021-09-01] MEDS: LACTULOSE 20 GM/30 ML UCUP PO SCH ×2 (08:12→21:03)
[2021-09-01] MEDS: Rifaximin 550 MG Tab PO SCH ×2 (08:36→21:03)
--- NOTE | 2021-09-01 18:04 | RAD REPORT ---
EXAM DESCRIPTION: RAD - Abdomen W Erect - 09/01/2021 3:47 pm CLINICAL HISTORY: abdominal pain Pain COMPARISON: No comparisons FINDINGS: There is significant distention of the colon present with of large amount of stool is note d. Curvilinear air density involving the wall of the colon also seen which could be pneumatosis coli. Free intraperitoneal air is not identified. 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 Recommend followup CT abdomen/pelvis imaging for further evaluation.
--- NOTE | 2021-09-01 22:09 | PN ---
Date of Progress Note: 09/01/2021 The patient has continued to improve as far as her therapy is concerned. She does complain of some i ntermittent lower abdominal discomfort associated with some loose stools, slightly tender in right mi d and lower abdomen. We will obtain a KUB just to make sure there was no ileus, if in fact is negati ve, arrangements can be made she could be discharged tomorrow [facility] to [facility]. Potassium i s normal as well and I feel she will be better while being monitored in a SNF unit than she would goi ng home alone. Will follow up with nursing home social worker in a.m. HR/MODL Voice ID: [id number] Report ID: [id number]
[2021-09-02] MEDS: HYDROCODONE/APAP 10/325 TAB PO PRN (07:30)
[2021-09-02 08:20] LABS: Albumin 2.7 g/dL (3.4-5.0); Protein, Total 6.6 g/dL (6.4-8.2)
[2021-09-02] MEDS: Rifaximin 550 MG Tab PO SCH ×2 (08:20→21:00)
[2021-09-02] MEDS: LACTULOSE 20 GM/30 ML UCUP PO SCH (08:20)
[2021-09-02] MEDS: ESCITALOPRAM 20 MG TAB PO SCH (08:20)
[2021-09-02] MEDS: PANTOPRAZOLE 40MG TABLET PO SCH (08:21)
[2021-09-02] MEDS: APIXABAN 2.5 MG TABLET PO SCH ×2 (08:21→20:11)
[2021-09-02] MEDS: levoFLOXacin 500 MG TAB PO SCH (08:21)
[2021-09-02] MEDS: NA CHLORIDE 0.9% 1,000 ML IV SCH ×2 (12:00→20:30)
--- NOTE | 2021-09-02 16:05 | RAD REPORT ---
EXAM DESCRIPTION: CT - Abdomen Pelvis W Contrast - 09/02/2021 3:26 pm CLINICAL HISTORY: pneumotosis coli COMPARISON: Ct Stroke Brain Wo Cont dated 05/07/2021bdomen Pelvis W Contrast dated 08/31/2016 TECHNIQUE: Biphasic, helical CT imaging of the abdomen and pelvis was performed following 100 ml non -ionic IV contrast. Oral contrast was given. All CT scans are performed using dose optimization technique as appropriate and may include automated exposure control or mA/KV adjustment according to patient size. FINDINGS: No cardiomegaly or pericardial effusion. Right base atelectasis is present. Lung base scar ring changes are seen. Liver is grossly abnormal mass as been previously seen. There is a small liver with a grossly lobulat ed contour. A worrisome focal liver lesion of the liver is not clearly defined. A few small cysts are present. Numerous upper abdominal varices are present. No bleeding or leakage from the varices confi rmed on this study. A very small, narrow portal vein is present with normal enhancement. The spleen and pancreas show no suspicious findings. Several gallstones are present in a normal size gallbladder. No biliary tree dilatation. Symmetric renal function is seen with no hydronephrosis or suspicious renal mass. No pyelonephritis o r acute parenchymal process. A 2 centimeter posterior mid pole right renal cyst is present. No adrena l abnormalities. Urinary bladder is only partially filled limiting detail. No uterine or ovarian proc ess suspected. Pelvic floor assessment is limited due to the spray artifact created by the bilateral hip surgical hardware. No gastric dilatation or gastric wall thickening. No dilated small bowel loops. The oral contrast has reached the terminal ileum with a minimal amount of contrast extending into the cecum. There is significant dilatation of the colon from cecum through descending colon. Over the length of the cecum of the bowel tapers back to a normal diameter. The distal most rectum is distended. Air and stool are present throughout the colon. There is a prominent pneumatosis coli pattern. Additionally, there are multiple areas of extraluminal free air. Small amount of free fluid is present in the righ t upper quadrant. Torres of the colon are not thickened or edematous. Central mesenteric arteries enha nce normally. No atherosclerotic calcifications at the mesenteric artery origins. Inferior mesenteric artery is patent. No hernia, mass or bulky lymphadenopathy. Disc and bone degenerative changes are present. IMPRESSION: Dilated colon from cecum through descending colon with extensive pneumatosis coli. There is extraluminal free air along the margins of the colon with a small amount of free fluid in the rig ht upper quadrant. The colon torres do not appear thickened, edematous or abnormally enhancing. There is no finding of m esenteric artery thrombosis. No obstructing colon mass. Advanced cirrhotic liver changes. Numerous varices of the upper abdomen are present with no bleeding or leakage identified. Multi stone cholelithiasis without acute gallbladder or biliary tree finding.
[2021-09-02] MEDS ORDERED: POTASSIUM CL 40 MEQ in NA CHLORIDE 0.9% 500 ML IV SCH (17:00)
--- NOTE | 2021-09-02 17:24 | PN ---
Date of Progress Note: 09/02/2021 Patient does seem comfortable. Today, she is up walking, improved on her therapy. Still has a littl e discomfort in her abdomen, however, a KUB did show some pneumatosis coli of questionable significan ce. They recommended a followup CT, which we will do this afternoon. Keep her n.p.o. and give her s ome IV fluids. Therefore, obviously hold her discharge. If in fact the CT scan is negative, holli watson could be discharged tomorrow. The other change, we will discontinue the morphine and hydrocodone, which she takes on occasions, possibly contributing to ileus. We will supervisor records change to tramadol and brown ve discuss the case with both the surgeon and hospitalist and obviously depending on the results and depending on the disposition. Potassium was also dropped somewhat and this will be replaced as usual by the protocol. HR/MODL Voice ID: [id number] Report ID: [id number]
[2021-09-02] MEDS: METRONIDAZOLE 500mg IVPB 500 MG/100 ML BAG IV SCH (17:38)
[2021-09-02] MEDS: KCL 20 MEQ/100 mL IVPB 100 ML IV SCH ×2 (18:10→20:12)
--- NOTE | 2021-09-02 22:39 | CON ---
Date of Consultation: 09/02/2021 Reason For Consultation: Pneumatosis coli. History Of Present Illness: The patient is a 61-year-old female, who presented to the emergency room approximately a week ago after a fall and was found to have a right femur fracture. She underwent s urgical repair by Dr. Tee postoperatively. She has been slow to progress and as was awaiting d ischarge; however, she had some abdominal distention and pain up until yesterday. Dr. Shaver ordere d an x-ray, which showed pneumatosis coli and he ordered a CAT scan, which confirmed the finding and dilated colon and therefore I was consulted. The patient is awake and alert. She does not complain of that much pain today. She did have breakfast this morning and she tolerated it well. She is havi ng bowel movements every day. No nausea or vomiting. There is no fever or chills. Review of Systems: Otherwise unremarkable. Past Medical History: Significant for cirrhosis, depression, hypertension, and varices. Allergies: NO ALLERGIES. Social History: The patient does smoke cigarettes currently and has been counseled by the primary te am. She denies using any alcohol recently. Physical Examination: Vital Signs: Currently are pulse rate of 101 and 104. Her other vitals are stable. She is currentl y afebrile. General: She is awake, alert, and oriented x3. Head and Neck: Cranial nerves 2 through 12 are grossly within normal limits. No neck masses. No JV D. Throat clear. Neck is supple. Chest: Clear. Heart: S1, S2. Abdomen: Soft. Enlarged liver is palpated. There is minimal distention, but no tenderness. No darcy ound rigidity or guarding noted. Extremities: Adequately perfused and nontender. Neuro: Nonfocal. Laboratory Data: Reviewed. Her last white count was 6.9 on the . MCV is elevated at 101.4 and platelets are 175. There is slight left shift. Her INR is 1.23. Chemistry reviewed. The patient h ad hypokalemia, which is being replaced right now. Total bilirubin is 2. Her albumin is 2.7. Imaging: CT of the abdomen and pelvis reviewed with Dr. Barron. It shows dilated colon from cecum through descending colon, with extensive pneumatosis coli. There is extraluminal free air along the margins of the colon with small amount of free fluid in the right upper quadrant. The colon torres do not appear thickened, edematous, or abnormally enhancing. There is no finding of mesenteric artery thrombosis. There is no obstructing colon mass. The patient has advanced cirrhotic liver changes. Numerous varices in the upper abdomen are present with no bleeding or leakage identified. The patien t also has multi stone cholelithiasis. Assessment: A 61-year-old female with pneumatosis coli and contained free air in the wall of the col on with minimal fluid in the pelvis, but does not have peritonitis at this time. Recommendations: At this time, I would recommend the patient be kept n.p.o. We will add Flagyl to h er antibiotic regimen. We will get an abdominal x-ray in the morning. We will also do serial abdomi nal exams and check labs in the morning. If medical management does not work, the patient will need intervention. The patient is very high risk for surgical intervention, but we may not have a choice at that point. We will follow this patient closely. AUGUSTINE/JASMYN Voice ID: [id number] Report ID: [id number]
[2021-09-03] MEDS: METRONIDAZOLE 500mg IVPB 500 MG/100 ML BAG IV SCH ×3 (00:32→17:16)
[2021-09-03 07:29] LABS: Absolute Lymphocytes (CBC) 0.7 K/uL (0.7-4.9); Hematocrit 32.9 % (36.0-45.0); Lymphocytes % 10.2 % (15.3-44.8); MCV 99.8 fL (80-100); MPV 7.7 fL (7.6-11.3)
--- NOTE | 2021-09-03 07:34 | RAD REPORT ---
EXAM DESCRIPTION: RAD - Abdomen W Erect - 09/03/2021 6:55 am CLINICAL HISTORY: Follow up pneumotosis COMPARISON: Abdomen W Erect dated 09/01/2021; Abdomen Pelvis W Contrast dated 09/02/2021 FINDINGS: Re- demonstrated severely dilated colon. Large volume of stool at the cecum. Pneumatosis i s again noted. No acute osseous abnormality.Visualized lungs are unremarkable.Cholelithiasis. Intrame dullary yun in the right femur. Left hip arthroplasty. IMPRESSION: Re- demonstrated severely dilated colon with pneumatosis. This is presumably secondary t o an adynamic colonic ileus. Small volume of free air was present on the CT from 09/02/2021 but not w ell demonstrated on this radiograph.
[2021-09-03 07:43] LABS: Magnesium 1.9 mg/dL (1.8-2.4)
[2021-09-03 07:45] LABS: Albumin 2.6 g/dL (3.4-5.0); Bilirubin Total 1.6 mg/dL (0.2-1.0); Protein, Total 6.4 g/dL (6.4-8.2)
[2021-09-03] MEDS ORDERED: POTASSIUM CL SA 10 MEQ TAB PO ONE (07:52)
[2021-09-03] MEDS: NA CHLORIDE 0.9% 1,000 ML IV SCH ×2 (08:00→20:29)
[2021-09-03] MEDS: ESCITALOPRAM 20 MG TAB PO SCH (09:00)
[2021-09-03] MEDS: PANTOPRAZOLE 40MG TABLET PO SCH (09:00)
[2021-09-03] MEDS: Rifaximin 550 MG Tab PO SCH ×2 (09:00→20:35)
[2021-09-03] MEDS: levoFLOXacin 500 MG TAB PO SCH (09:00)
[2021-09-03] MEDS: APIXABAN 2.5 MG TABLET PO SCH ×2 (09:00→20:34)
--- NOTE | 2021-09-03 09:13 | P.PN ---
Subjective Date of Service: 09/03/21 Chief Complaint: Adynamic ileus Subjective: Improving (Patient is improving she denies any complaints mild tenderness no diarrhea) Review of Systems General: Weakness Gastrointestinal: Abdominal Pain Physical Examination - Vital Signs Temperature: 98.1 F Blood Pressure: 120/64 Pulse: 102 Respirations: 17 Pulse Ox (%): 96 - Physical Exam General: Alert, In no apparent distress, Oriented x3 Respiratory: Clear to auscultation bilaterally Cardiovascular: No edema, Regular rate/rhythm Gastrointestinal: Hypoactive, Tenderness (Mild generalized tenderness there is no distention) Assessment And Plan - Current Problems (Diagnosis) (1) Adynamic ileus Current Visit: Yes Status: Acute Plan: Patient has severely dilated descending colon seen by Dr. Urbina on antibiotics IV fluids n.p.o. (2) Hypokalemia Current Visit: Yes Status: Acute Plan: Replace potassium
[2021-09-03] MEDS ORDERED: POTASSIUM CL 40 MEQ in NA CHLORIDE 0.9% 500 ML IV SCH (10:00)
[2021-09-03] MEDS: Levofloxacin500mg IV 500 MG/100 ML BAG IV SCH (15:44)
--- NOTE | 2021-09-03 17:44 | PN ---
Date of Progress Note: 09/03/2021 Subjective: The patient is awake, alert, and having bowel movements. No nausea or vomiting. Some n onspecific abdominal pain associated with a little bit of distention. She is thirsty. Objective: Vital Signs: Stable. She is afebrile. Abdomen: Soft, slightly distended. Hypoactive bowel sounds. Mild tenderness but no rebound, rigidi ty, or guarding. Laboratory Data: White count is 7.3. There is no left shift. H and H are stable. Chemistry shows potassium 3.0 which is being replaced. Assessment: Adynamic colonic ileus with pneumatosis coli and contained free air in the wall of the c olon. Recommendations: Continue n.p.o. IV fluids, IV antibiotics consisting of Levaquin and Flagyl. Seria l abdominal exam and we will repeat the abdominal x-ray and blood work in the morning. Hopefully, th e patient can improve with conservative medical management. Should she not, she may require surgical intervention. Plan of care discussed in detail with Dr. Story as well as the patient. /MODL Voice ID: [id number] Report ID: [id number]
[2021-09-03 21:52] LABS: Potassium 2.6 mmol/L (3.5-5.1)
[2021-09-04] MEDS: METRONIDAZOLE 500mg IVPB 500 MG/100 ML BAG IV SCH ×3 (00:04→16:55)
[2021-09-04] MEDS: KCL 20 MEQ/100 mL IVPB 20 MEQ/100 ML BAG IV SCH ×3 (00:35→05:25)
[2021-09-04] MEDS: NA CHLORIDE 0.9% 1,000 ML IV SCH ×2 (04:00→14:08)
[2021-09-04 05:49] LABS: Absolute Lymphocytes (CBC) 0.6 K/uL (0.7-4.9); Hematocrit 29.2 % (36.0-45.0); Lymphocytes % 10.2 % (15.3-44.8); MCV 97.9 fL (80-100); MPV 7.7 fL (7.6-11.3); RBC Red Blood Cell Count 2.98 M/uL (3.86-4.86)
[2021-09-04 06:18] LABS: Magnesium 1.7 mg/dL (1.8-2.4)
[2021-09-04] MEDS ORDERED: MAGNESIUM SULFATE 1 gm IVPB 1 GM/100 ML BAG IV ONE (09:00)
--- NOTE | 2021-09-04 10:18 | P.PN ---
Date of Service: 09/04/21 Subjective: Patient feels much better and is hungry. Patient is having bowel movement and passing gas. Patient does not have any pain. Objective: Vital signs are stable and patient is afebrile. Laboratory data reviewed. Abdominal x-ray is pending. Abdomen: Soft, nondistended, positive bowel sounds and completely nontender Assessment: Adynamic colonic ileusclinically improving Plan: We will check the abdominal x-ray, and if its improved radiographically we will begin trial of clear liquid diet. Continue IV antibiotics and replace electrolytes. Patient is clinically improving. CC:
--- NOTE | 2021-09-04 10:26 | RAD REPORT ---
EXAM DESCRIPTION: RAD - Abdomen W Erect - 09/04/2021 10:02 am CLINICAL HISTORY: Abdominal pain FINDINGS: The colonic dilatation has diminished since September 03, 2021 and is normal caliber. Pneumatosis has diminished. Free air beneath the diaphragm is not visualized
[2021-09-04] MEDS: Rifaximin 550 MG Tab PO SCH ×2 (10:45→20:32)
[2021-09-04] MEDS: APIXABAN 2.5 MG TABLET PO SCH ×2 (10:45→20:32)
[2021-09-04] MEDS: PANTOPRAZOLE 40MG TABLET PO SCH (10:45)
[2021-09-04] MEDS: ESCITALOPRAM 20 MG TAB PO SCH (10:45)
--- NOTE | 2021-09-04 11:17 | P.PN ---
Subjective Date of Service: 09/04/21 Subjective: No new changes, No C/O voiced, Improving Review of Systems 10-point ROS is otherwise unremarkable Physical Examination - Vital Signs Temperature: 97.8 F Blood Pressure: 137/65 Pulse: 85 Respirations: 14 Pulse Ox (%): 98 - Physical Exam General: Alert, In no apparent distress HEENT: Atraumatic, PERRLA, EOMI Neck: Supple, JVD not distended Respiratory: Clear to auscultation bilaterally, Normal air movement Cardiovascular: Regular rate/rhythm, Normal S1 S2 Gastrointestinal: Normal bowel sounds, No tenderness Musculoskeletal: No tenderness Integumentary: No rashes Neurological: Normal speech, Normal tone, Normal affect Lymphatics: No axilla or inguinal lymphadenopathy - Studies Medications List Reviewed: Yes Assessment & Plan - Problems (Diagnosis) (1) Acute renal injury Current Visit: No Status: Acute (2) Right femoral fracture Current Visit: Yes Status: Acute Qualifiers: Encounter type: subsequent encounter Fracture type: closed Fracture alignment: displaced (3) Hypokalemia Current Visit: Yes Status: Acute (4) Pneumatosis coli Current Visit: Yes Status: Acute - Plan -aggressive IV hydration -IV antibiotics -outpatient colonoscopy -pain controlled -stool studies -monitor for possible perforation -surgery consultation appreciate an -continue with physical therapy -patient has been accepted to swing the swing bed and once patient is medically stable plan to discharge in the next 24-48 hours. Discharge Plan: [facility] Plan to discharge in: 48 Hours - Advance Directives Does patient have a Living Will: No Does patient have a Durable POA for Healthcare: No - Code Status/Comfort Care Code Status Assessed: Yes Code Status: Full Code Critical Care: No Time Spent Managing PTS Care (In Minutes): 35
[2021-09-04] MEDS: Levofloxacin500mg IV 500 MG/100 ML BAG IV SCH (11:53)
[2021-09-04] MEDS ORDERED: KCL 20 MEQ/100 mL IVPB 20 MEQ/100 ML BAG IV SCH (15:00)
[2021-09-04] MEDS ORDERED: POTASSIUM CL SA 10 MEQ TAB PO ONE (16:48)
[2021-09-04 20:54] VITALS: O2SAT 98
[2021-09-04] MEDS: CODEINE 30MG/APAP 300MG TAB PO PRN (21:18)
[2021-09-05] MEDS: NA CHLORIDE 0.9% 1,000 ML IV SCH ×3 (00:53→20:12)
[2021-09-05] MEDS: METRONIDAZOLE 500mg IVPB 500 MG/100 ML BAG IV SCH ×2 (00:53→09:07)
[2021-09-05] MEDS: KCL 20 MEQ/100 mL IVPB 20 MEQ/100 ML BAG IV SCH ×3 (04:32→09:07)
[2021-09-05] MEDS: CODEINE 30MG/APAP 300MG TAB PO PRN ×3 (05:49→20:11)
[2021-09-05 06:26] LABS: Absolute Lymphocytes (CBC) 0.7 K/uL (0.7-4.9); Hematocrit 29.6 % (36.0-45.0); Lymphocytes % 12.1 % (15.3-44.8); MPV 7.9 fL (7.6-11.3); RBC Red Blood Cell Count 2.99 M/uL (3.86-4.86)
[2021-09-05 06:49] LABS: Albumin 2.3 g/dL (3.4-5.0); Bilirubin Total 1.5 mg/dL (0.2-1.0); Magnesium 1.7 mg/dL (1.8-2.4); Phosphorus 1.6 mg/dL (2.5-4.9); Protein, Total 5.5 g/dL (6.4-8.2)
[2021-09-05 06:50] LABS: Potassium 2.8 mmol/L (3.5-5.1)
[2021-09-05] MEDS: APIXABAN 2.5 MG TABLET PO SCH ×2 (09:07→20:12)
[2021-09-05] MEDS: PANTOPRAZOLE 40MG TABLET PO SCH (09:07)
[2021-09-05] MEDS: ESCITALOPRAM 20 MG TAB PO SCH (09:07)
[2021-09-05] MEDS: Rifaximin 550 MG Tab PO SCH ×2 (09:07→20:12)
[2021-09-05] MEDS ORDERED: MAGNESIUM SULFATE 1 gm IVPB 1 GM/100 ML BAG IV ONE (10:00)
[2021-09-05] MEDS: Levofloxacin500mg IV 500 MG/100 ML BAG IV SCH (11:06)
[2021-09-05] MEDS: metroNIDAZOLE 500 MG TABLET PO SCH ×2 (14:48→20:12)
[2021-09-05] MEDS ORDERED: POTASSIUM PHOS 30 MM in NA CHLORIDE 0.9% 500 ML IV ONE (15:00)
[2021-09-05] MEDS ORDERED: POTASSIUM 25 MEQ EFFERV TAB PO ONE ×2 (15:00→23:25)
--- NOTE | 2021-09-05 18:30 | P.PN ---
Date of Service: 09/05/21 Subjective Subjective: Patient is doing well and tolerating diet. She has been tolerating a full liquid. Patient should be cleared to go to [facility]. Review of Systems 10-point ROS is otherwise unremarkable Physical Examination - Vital Signs reviewed - Physical Exam General: Alert, In no apparent distress HEENT: Atraumatic, PERRLA, EOMI Neck: Supple, JVD not distended Respiratory: Clear to auscultation bilaterally, Normal air movement Cardiovascular: Regular rate/rhythm, Normal S1 S2 Gastrointestinal: Normal bowel sounds, No tenderness Neurological: Normal speech, Normal tone, Normal affect Assessment & Plan - Problems (Diagnosis) (1) Acute renal injury Current Visit: No Status: Acute (2) Right femoral fracture Current Visit: Yes Status: Acute Qualifiers: Encounter type: subsequent encounter Fracture type: closed Fracture alignment: displaced (3) Hypokalemia Current Visit: Yes Status: Acute (4) Pneumatosis coli Current Visit: Yes Status: Acute - Plan -Continue with full liquid diet; will stay on full liquids for the time being. Abdominal film pending in the morning. -IV antibiotics -outpatient colonoscopy -pain controlled -monitor for possible perforation -surgery consultation appreciated -continue with physical therapy -patient has been accepted to [facility] and once patient is medically stable plan to discharge in the next 24-48 hours. Discharge Plan: [facility] Plan to discharge in: 48 Hours - Advance Directives Does patient have a Living Will: No Does patient have a Durable POA for Healthcare: No - Code Status/Comfort Care Code Status Assessed: Yes Code Status: Full Code Critical Care: No Time Spent Managing PTS Care (In Minutes): 35
[2021-09-06] MEDS: CODEINE 30MG/APAP 300MG TAB PO PRN ×2 (05:53→14:15)
[2021-09-06] MEDS: NA CHLORIDE 0.9% 1,000 ML IV SCH (06:00)
[2021-09-06 06:30] LABS: Absolute Lymphocytes (CBC) 0.8 K/uL (0.7-4.9); Hematocrit 30.8 % (36.0-45.0); Lymphocytes % 12.1 % (15.3-44.8); MCV 96.9 fL (80-100); RBC Red Blood Cell Count 3.18 M/uL (3.86-4.86)
[2021-09-06 06:43] LABS: Phosphorus 1.8 mg/dL (2.5-4.9)
[2021-09-06 06:45] LABS: Magnesium 1.6 mg/dL (1.8-2.4); Potassium 3.8 mmol/L (3.5-5.1)
--- NOTE | 2021-09-06 07:43 | RAD REPORT ---
EXAM DESCRIPTION: RAD - Abdomen W Erect - 09/06/2021 7:02 am CLINICAL HISTORY: Abdominal pain FINDINGS: Bowel gas caliber is normal. Free air is not seen beneath the diaphragm. The patient's previously described pneumatosis intestinalis is not clearly visualized on this exam
--- NOTE | 2021-09-06 08:31 | P.DS ---
Admission Date: 08/25/21 Discharge Date: 09/06/21 Primary Care Provider: Raymond Shaver M.D. Disposition: TRANSFER TO LONG-TERM Discharge Condition: GOOD Reason for Admission: Adynamic ileus Consultations: 1. Orthopedic Surgery 2. 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 Jami Brewer is a 61-year-old female with a past medical history significant for alcoholic cirrhosis complicated by esophageal varices, anxiety, and depression who was admitted to the [facility] on 08/25/2021 following a traumatic groundlevel fall. She was found to have a right intertrochanteric femur fracture. She was admitted to the Medicine service, and Orthopedic Surgery was consulted. On 08/26/2021, she underwent a combination of closed reduction with the use of intramedullary godfrey fixation using Biomet Affixus Nail. Her post-operative course was complicated by abdominal pain and a KUB revealed, "significant distention of the colon is present with probable pneumatosis coli." Subsequent CT abdomen/pelvis revealed, "dilated colon from cecum through descending colon with extensive pneumatosis coli. There is extraluminal free air along the margins of the colon with a small amount of free fluid in the right upper quadrant. The colon torres do not appear thickened, edematous or abnormally enhancing. There is no finding of mesenteric artery thrombosis. No obstructing colon mass. Advanced cirrhotic liver changes. Numerous varices of the upper abdomen are present with no bleeding or leakage identified. Multi stone cholelithiasis without acute gallbladder or biliary tree finding." General Surgery was consulted and Dr. Urbina evaluated her. It was thought that her symptoms may have been exacerbated by lactulose, and it was recommended that this be discontinued. Over the course of her hospitalization, her serial KUB examinations improved and her abdominal examinations improved as well. Today, she reports passing flatus and bowel movements, without any issues. General Surgery has cleared her for discharge. With the assistance of case management, she was accepted to [facility] for continued physical therapy. Incidentally, her urinalysis returned positive for Klebsiella Pneumoniae and Streptococcus Bovis. She was discharged with 7 days of levlofloxacin + metronidazole to treat this as well as any other possible intra-abdominal infection, which may have contributed to her pneumatosis coli. She was advised to schedule a colonoscopy at her earliest convenience as S. Bovis is associated with colonic malignancy. On 09/06/2021, she was seen on morning rounds and deemed medically stable for discharge. She was discharged with instructions to schedule a follow-up with her PCP (Dr. Shaver) 3-5 days following discharge from [facility]. She was given the opportunity to ask questions and reported no further questions. Furthermore, all questions were answered to the best of my ability. Today, I personally spent 25 minutes on her case, of which greater than 50% of the time was spent in patient education, counseling, and coordination of care as described above. Vital Signs/Physical Exam: Temp Pulse Resp BP Pulse Ox 97.9 F 79 14 125/68 98 09/06/21 08:00 09/06/21 08:00 09/06/21 08:00 09/06/21 08:00 09/06/21 08:00 General: Alert, In no apparent distress, Oriented x3 HEENT: Atraumatic, Mucous membr. moist/pink Neck: Supple, JVD not distended Respiratory: Clear to auscultation bilaterally, Normal air movement Cardiovascular: No edema, Regular rate/rhythm, Normal S1 S2, No gallops, No rubs, No murmurs Gastrointestinal: Normal bowel sounds, Soft and benign, Non-distended, No ascites, No tenderness, No rebound, No guarding Musculoskeletal: No clubbing, Other (s/p right femur surgery) Integumentary: No rashes Neurological: Normal speech, Normal affect Laboratory Data at Discharge: WBC 6.9 K/uL (4.3-10.9) 09/06/21 06:10 Hgb 10.6 g/dL (12.0-15.0) L 09/06/21 06:10 Hct 30.8 % (36.0-45.0) L 09/06/21 06:10 Plt Count 130 K/uL (152-406) L 09/06/21 06:10 PT 13.6 SECONDS (9.5-12.5) H 08/25/21 00:25 INR 1.23 08/25/21 00:25 Sodium 143 mmol/L (136-145) 09/06/21 06:10 Potassium 3.8 mmol/L (3.5-5.1) 09/06/21 06:10 BUN 7 mg/dL (7-18) 09/06/21 06:10 Creatinine 0.94 mg/dL (0.55-1.3) 09/06/21 06:10 Glucose 89 mg/dL (74-106) 09/06/21 06:10 Phosphorus 1.8 mg/dL (2.5-4.9) L 09/06/21 06:10 Magnesium 1.6 mg/dL (1.8-2.4) L 09/06/21 06:10 Total Bilirubin 1.5 mg/dL (0.2-1.0) H 09/05/21 06:03 AST 28 U/L (15-37) 09/05/21 06:03 ALT 27 U/L (12-78) 09/05/21 06:03 Alkaline Phosphatase 79 U/L (45-117) 09/05/21 06:03 Amylase 51 U/L (25-115) 08/25/21 11:05 Lipase 163 U/L (73-393) 08/25/21 11:05 Home Medications: Escitalopram [Lexapro*] 20 mg PO DAILY 04/11/18 Pantoprazole [Protonix Tab*] 40 mg PO DAILY 04/11/18 Rifaximin [Xifaxan*] 550 mg PO BID 04/11/18 Apixaban [Eliquis *] 2.5 mg PO BID 09/06/21 Codeine/APAP [Tylenol #3*] 1 tab PO Q4H PRN tab 09/06/21 Ondansetron [Zofran*] 4 mg IV Q4H PRN vial 09/06/21 levoFLOXacin [Levaquin*] 500 mg PO DAILY 6 Days #6 tab 09/06/21 metroNIDAZOLE [Flagyl*] 500 mg PO TID 7 Days #21 09/06/21 Diet: Regular Activity: Per PT Followup: Yair Tee MD [ACTIVE - CAN ADMIT] - (Call to schedule appointment) Raymond Shaver MD [Primary Care Provider] - (Call to schedule appointment.)
[2021-09-06] MEDS ORDERED: MAGNESIUM OXIDE 400 MG TAB PO ONE (08:37)
[2021-09-06] MEDS: APIXABAN 2.5 MG TABLET PO SCH (08:58)
[2021-09-06] MEDS: ESCITALOPRAM 20 MG TAB PO SCH (08:58)
[2021-09-06] MEDS: PANTOPRAZOLE 40MG TABLET PO SCH (08:58)
[2021-09-06] MEDS: metroNIDAZOLE 500 MG TABLET PO SCH ×2 (08:59→14:02)
[2021-09-06] MEDS ORDERED: POTASSIUM 25 MEQ EFFERV TAB PO ONE (09:00)
[2021-09-06] MEDS ORDERED: levoFLOXacin 500 MG TAB PO SCH (09:00)
[2021-09-06] MEDS: POTASS/SODIUM PHOSPHATE 1 PKT POWD.PACK PO SCH ×3 (09:05→11:32)
[2021-09-06] MEDS: Rifaximin 550 MG Tab PO SCH (10:13)
[2021-09-06 12:31] VITALS: BP 125/69; TEMP 97.2
== END 2021-09-06 16:14 | DRG 481 ==
LOC: ER 23:44 → ERHOLD 08-25 03:25 → 4TH 08-25 05:46 → 2ND 08-30 19:43
PROVIDERS: ADMIT Family Medicine; ATTEND Internal Medicine
PROC: 0T9B70Z Drainage of Bladder with Drainage Device, Via Natural or Artificial Opening (ICD-10-PCS; 2021-08-25)
PROC: 0QS636Z Reposition Right Upper Femur with Intramedullary Internal Fixation Device, Percutaneous Approach (ICD-10-PCS; principal; 2021-08-26 11:30)
DX: S72.141A Displaced intertrochanteric fracture of right femur, initial encounter for closed fracture (principal); I85.10 Secondary esophageal varices without bleeding; K56.0 Paralytic ileus; N17.9 Acute kidney failure, unspecified; N39.0 Urinary tract infection, site not specified; K76.6 Portal hypertension; K91.89 Other postprocedural complications and disorders of digestive system; K70.30 Alcoholic cirrhosis of liver without ascites; F41.8 Other specified anxiety disorders; R63.0 Anorexia; K63.89 Other specified diseases of intestine; F17.210 Nicotine dependence, cigarettes, uncomplicated; E87.6 Hypokalemia; B96.1 Klebsiella pneumoniae [K. pneumoniae] as the cause of diseases classified elsewhere; B95.4 Other streptococcus as the cause of diseases classified elsewhere; W19.XXXA Unspecified fall, initial encounter; S22.20XG Unspecified fracture of sternum, subsequent encounter for fracture with delayed healing; S22.31XG Fracture of one rib, right side, subsequent encounter for fracture with delayed healing; Z20.822 Contact with and (suspected) exposure to COVID-19; Z68.23 Body mass index [BMI] 23.0-23.9, adult; Z71.6 Tobacco abuse counseling; Y83.1 Surgical operation with implant of artificial internal device as the cause of abnormal reaction of the patient, or of later complication, without mention of misadventure at the time of the procedure; Y92.239 Unspecified place in hospital as the place of occurrence of the external cause
CPT/HCPCS: 36415; 51702; 70450; 71045; 71260; 72125; 72170; 74019; 74177; 76000; 80048; 80053; 80076; 80320; 81001; 81003; 81015; 82140; 82150; 83605; 83690; 83735; 83880; 84100; 84132; 85025; 85610; 86850; 86900; 86901; 87077; 87086; 87088; 87186; 93005; 96361; 96374; 97110; 97116; 97161; 97530; 99285; J0690; J1100; J2175; J2250; J2370; J2405; J2704; J3010; J3475; J3480; J7030; J7040; J7042; J7120; Q9967; U0003

== ENCOUNTER 2024-02-02 17:52 | Emergency (ER) | payer OTHER ==
[2024-02-02] MEDS ORDERED: IBUPROFEN 200 MG TAB PO ONE (18:55)
[2024-02-02] MEDS ORDERED: IBUPROFEN 400 MG TAB ONE (18:55)
--- NOTE | 2024-02-02 19:44 | RAD REPORT ---
EXAM: CT CHEST, ABDOMEN AND PELVIS WITHOUT CONTRAST CLINICAL INDICATION: Female, 63 years old. [facility] MAIN PAIN Bed: TECHNIQUE: CT chest, abdomen and pelvis was performed, without IV contrast, as per department protoco l. Axial, sagittal and coronal reconstructions were obtained. One or more of the following dose reduction techniques were used: Automated exposure control, adjustment of the mA and/or kV according to the patient size, and/or iterative reconstruction. Unless otherwise specified, incidental findings do not require dedicated imaging follow-up. COMPARISON: 09/02/2021. FINDINGS: The lack of intravenous contrast limits the sensitivity of this exam for evaluation of solid visceral organs, vascular structures, and retroperitoneum. Chest: LOWER NECK/CHEST WALL: Visualized thyroid gland and soft tissues are normal. LUNGS AND AIRWAYS: Airways are clear. No evidence of airspace or interstitial process. No nodules. PLEURA: No pleural effusion. No pneumothorax. Hemidiaphragms are normally positioned. MEDIASTINUM AND LYMPH NODES: No mediastinal mass or fluid collection. Normal size mediastinal, hilar, and axillary lymph nodes. THORACIC AORTA: Normal caliber and configuration. PULMONARY ARTERIES: Normal caliber. HEART: Unremarkable. Abdomen/Pelvis LIVER: Nodular contour of the liver, with progressive right lobe atrophy slightly 22 compatible with liver cirrhosis. No focal lesions within limits of noncontrast evaluation. GALLBLADDER/BILE DUCTS: Gallbladder is contracted over multiple stones. Prominent portosystemic varic osities along the gastroesophageal junction,. Grossly stable. PANCREAS: No mass, ductal dilation, or ming-pancreatic fluid. SPLEEN: Normal size. No focal lesion. ADRENALS: Stable left adrenal nodules largest measuring 2.3 cm. KIDNEYS AND URETERS: Normal size and contour. No hydronephrosis. GASTROINTESTINAL TRACT: Stomach is non-dilated. Small bowel has normal course and caliber. Mild fat s tranding in the region of the samantha hepatis and second part of duodenum No colonic wall thickening or pericolonic inflammatory changes. Mild distal colonic diverticulosis. PERITONEUM: No free fluid. LYMPH NODES: No lymphadenopathy. ABDOMINAL AORTA AND OTHER VESSELS: Normal caliber aorta and IVC. URINARY BLADDER: Normal contour. REPRODUCTIVE ORGANS: No pathologic process. MUSCULOSKELETAL: Healing left lateral fifth and sixth rib fractures. Multilevel thoracic and lumbar s pine compression deformities, with mild interval progression of compression deformities at T8 and T9, now up to moderate, worse at T8. Endplate remodeling with some retropulsion at L2-3, stable. Bila teral femoral hardware results in streak artifact which somewhat limits evaluation. ADDITIONAL FINDINGS: None IMPRESSION: Healing or healed left lateral fifth and sixth rib fractures. Mildly progressive vertebral body compression deformities at T8 and T9. Other multilevel lumbar spine compression deformities appear stable. Nonspecific mild fat stranding near the samantha hepatis and along the second part of duodenum, may rela te to sequelae of portal hypertension/arthropathy, for mild duodenitis. Other stable chronic findings as above.
--- NOTE | 2024-02-02 19:59 | EDPHYS ---
Physician Documentation [facility] Name: Jami Brewer Age: 63 yrs Sex: Female : 1960 Arrival Date: 02/02/2024 Time: 17:52 Bed 13 Private MD: ED Physician Tae Barba HPI: 02/01 18:45 This 63 yrs old Female presents to ER via Ambulatory with complaints of Back weston Pain. 18:45 The patient presents with pain that is acute, and decreased range of motion, and an weston injury. The symptoms are located in the low back. Onset: The symptoms/episode began/occurred 3 day(s) ago. The pain does not radiate. Associated signs and symptoms: The patient has no apparent associated signs or symptoms. The problem was sustained from a direct blow, during a fall, while standing. Modifying factors: The patient symptoms are alleviated by remaining still, the patient symptoms are aggravated by any movement, bending. Severity of symptoms: At their worst the symptoms were moderate, in the emergency department the symptoms are unchanged. The patient has not experienced similar symptoms in the past. Historical: - PMHx: 18:18 Cirrhosis; Depression; Hypertension; Ulcers; Osteoarthritis; Osteoporosis; db - Immunization history:: Adult Immunizations unknown. - Infectious Disease History:: Denies. - Social history:: Smoking status: Patient denies any tobacco usage or history of. - Family history:: not pertinent. ROS: 18:45 Constitutional: Negative for fever, chills, and weight loss, Eyes: Negative for injury, weston pain, redness, and discharge, ENT: Negative for injury, pain, and discharge, Neck: Negative for injury, pain, and swelling, Cardiovascular: Negative for chest pain, palpitations, and edema, Respiratory: Negative for shortness of breath, cough, wheezing, and pleuritic chest pain, Abdomen/GI: Negative for abdominal pain, nausea, vomiting, diarrhea, and constipation, : Negative for injury, bleeding, discharge, and swelling, MS/Extremity: Negative for injury and deformity, Skin: Negative for injury, rash, and discoloration, Neuro: Negative for headache, weakness, numbness, tingling, and seizure, Psych: Negative for depression, anxiety, suicide ideation, homicidal ideation, and hallucinations, Allergy/Immunology: Negative for hives, rash, and allergies, Endocrine: Negative for neck swelling, polydipsia, polyuria, polyphagia, and marked weight changes, Hematologic/Lymphatic: Negative for swollen nodes, abnormal bleeding, and unusual bruising, 18:45 Back: Positive for injury or acute deformity, decreased range of motion, pain at rest, pain with movement, of the lumbar area, left low back and right low back, Exam: 18:45 Constitutional: This is a well developed, well nourished patient who is awake, alert, weston and in no acute distress. Head/Face: Normocephalic, atraumatic. Eyes: Pupils equal round and reactive to light, extra-ocular motions intact. Lids and lashes normal. Conjunctiva and sclera are non-icteric and not injected. Cornea within normal limits. Periorbital areas with no swelling, redness, or edema. ENT: Nares patent. No nasal discharge, no septal abnormalities noted. Tympanic membranes are normal and external auditory canals are clear. Oropharynx with no redness, swelling, or masses, exudates, or evidence of obstruction, uvula midline. Mucous membranes moist. Neck: Trachea midline, no thyromegaly or masses palpated, and no cervical lymphadenopathy. Supple, full range of motion without nuchal rigidity, or vertebral point tenderness. No Meningismus. Chest/axilla: Normal chest wall appearance and motion. Nontender with no deformity. No lesions are appreciated. Cardiovascular: Regular rate and rhythm with a normal S1 and S2. No gallops, murmurs, or rubs. Normal PMI, no JVD. No pulse deficits. Respiratory: Lungs have equal breath sounds bilaterally, clear to auscultation and percussion. No rales, rhonchi or wheezes noted. No increased work of breathing, no retractions or nasal flaring. Abdomen/GI: Soft, non-tender, with normal bowel sounds. No distension or tympany. No guarding or rebound. No evidence of tenderness throughout. Female : Normal external genitalia. Skin: Warm, dry with normal turgor. Normal color with no rashes, no lesions, and no evidence of cellulitis. MS/ Extremity: Pulses equal, no cyanosis. Neurovascular intact. Full, normal range of motion., bilateral aka Neuro: Awake and alert, GCS 15, oriented to person, place, time, and situation. Cranial nerves II-XII grossly intact. Motor strength 5/5 in all extremities. Sensory grossly intact. Cerebellar exam normal. Normal gait. Psych: Awake, alert, with orientation to person, place and time. Behavior, mood, and affect are within normal limits. 18:45 Back: pain, that is mild, that is moderate, ROM is painful, with flexion, with extension, normal spinal alignment noted, CVA tenderness, is absent, vertebral tenderness, is not appreciated, muscle spasm, is appreciated in the left low back, left mid back, right mid back and right low back, Vital Signs: 18:10 BP 141 / 89; Pulse 120; Resp 18; Temp 98.3; Pulse Ox 95% ; Weight 62.6 kg; Height 5 ft. db 6 in. ; Pain 9/10; 18:30 BP 137 / 84; Pulse 110; Resp 17; Pulse Ox 97% on R/A; rs5 18:55 BP 128 / 79; Pulse 117; Resp 16; Pulse Ox 96% ; rs5 19:10 BP 138 / 77; Pulse 110; Resp 17; Temp 98; Pulse Ox 100% on R/A; Pain 3/10; rg5 20:00 BP 138 / 79; Pulse 109; Resp 17; Pulse Ox 100% on R/A; Pain 3/10; rg5 18:10 Body Mass Index 22.27 (62.60 kg, 167.64 cm) db 18:10 Pain Scale: Adult db 19:10 Pain Scale: Adult rg5 20:00 Pain Scale: Adult rg5 MDM: 18:02 Medical Screening Exam initiated weston 18:47 Differential diagnosis: Fatigue Fracture Obesity ruptured disc, Scoliosis sprain, weston Ureterolithiasis. Data reviewed: vital signs, nurses notes, lab test result(s), radiologic studies, CT scan. Consideration of Admission/Observation Escalation of care including admission/observation considered. I considered the following discharge prescriptions or medication management in the emergency department Medications were administered in the Emergency Department. See MAR. Independent interpretation of the following test(s) in the Emergency Department CT Scan: My interpretation is CT LUMBAR. Test considered but Not performed: MRI: NO MRI L SPINE. Historians other than the Patient: PT WELL INFORMED. Care significantly affected by the following chronic conditions: Hypertension, Liver Disease, ULCERS, CIRRHOSIS, DEPRESSION. 20:02 ED course: PT WANTS NO LABS DONE, WILL SEE DR SMILEY. [facility] 02/01 18:02 Order name: CT Chest Abdomen Pelvis W/O Contrast; Complete Time: 19:50 weston Administered Medications: 18:53 Not Given (Patient Refused): ns 0.9% 1000 ml IV at 1000 ml once; to be given as a bolus rs5 over 60 minutes 19:01 Drug: Ibuprofen PO 600 mg PO once Route: PO; rg5 19:59 Follow up: Response: No adverse reaction; Pain is decreased rg5 19:51 CANCELLED (Duplicate Order): [id number] mg IVP once weston 20:00 Drug: Pantoprazole PO 40 mg PO once Route: PO; rg5 20:09 Follow up: Response: No adverse reaction rg5 Disposition Summary: 02/02/24 19:58 Discharge Ordered Notes: Location: Home weston Problem: new weston Symptoms: have improved weston Condition: Stable weston Diagnosis - Fall on same level, unspecified weston - Low back pain weston - Other injury of muscle, fascia and tendon of lower back weston - Multiple fractures of ribs - HEALING weston - Unspecified cirrhosis of liver weston - Wedge compression fracture of unspecified thoracic vertebra - T8 AND T9 weston - Other cirrhosis of liver weston Followup: weston - With: Private Physician - When: 2 - 3 days - Reason: Recheck today's complaints, Continuance of care, Re-evaluation by your physician Followup: weston - With: Sai Bazzi MD - When: 2 - 3 days - Reason: Recheck today's complaints, Continuance of care, Re-evaluation by your physician Discharge Instructions: - Discharge Summary Sheet weston - Acute Back Pain, Adult weston - Cirrhosis weston - Thoracic Spine Fracture weston - Fall Prevention in the Home, Adult weston - Musculoskeletal Pain weston - Fall Prevention in the Home, Adult, [id number] weston - Thoracic Spine Fracture, [id number] weston - Rib Fracture, [id number] [facility] Forms: - Medication Reconciliation Form [facility] - Antibiotic Education [facility] - Prescription Opioid Use [facility] - Patient Portal Instructions [facility] - Leadership Thank You Letter [facility] Prescriptions: - Protonix 40 mg Oral Tablet - take 1 tablet ORAL route once daily; 30 tablet; Refills: 0, Product Selection weston Permitted - Tylenol 325 mg Oral tablet - take 2 tablets ORAL route every 6 hours as needed; 40 tablet; Refills: 0, [facility] Product Selection Permitted - methocarbamol 750 mg Oral tablet - take 1 tablet ORAL route 4 times per day; 30 tablet; Refills: 0, Product weston Selection Permitted Signatures: Dispatcher [employer] EDTae Keating MD MD cha Benton, Danielle RN RN db Derek Villarreal RN RN rg5 Gucci Mckeon RN rs5 Corrections: (The following items were deleted from the chart) 19:51 19:51 Pantoprazole IVP 40 mg IVP once ordered. weston ontiveros
--- NOTE | 2024-02-02 19:59 | ER ---
Nurse's Notes [facility] Name: Jami Brewer Age: 63 yrs Sex: Female : 1960 Arrival Date: 02/02/2024 Time: 17:52 Bed 13 Private MD: Diagnosis: Fall on same level, unspecified;Low back pain;Other injury of muscle, fascia and tendon of lower back;Multiple fractures of ribs-HEALING;Unspecified cirrhosis of liver;Wedge compression fracture of unspecified thoracic vertebra-T8 AND T9;Other cirrhosis of liver Presentation: 02/01 18:10 Chief complaint: Patient states: LOWER BACK PAIN X 3 DAYS STATES HIT LOWER BACK ON A db RAIL WHEN LOST BALANCE. STATES FELT BETTER 2 DAYS AGO THEN STARTED CLEANING YESTERDAY AND NOW PAIN IS WORSE. PATIENT AMBULATORY WITH [facility]. Coronavirus screen: Client denies travel out of the [place] in the last 14 days. At this time, the client does not indicate any symptoms associated with coronavirus-19. Ebola Screen: Patient negative for fever greater than or equal to 101.5 degrees Fahrenheit, and additional compatible Ebola Virus Disease symptoms Patient denies exposure to infectious person. Patient denies travel to an Ebola-affected area in the 21 days before illness onset. No symptoms or risks identified at this time. Initial Sepsis Screen: Does the patient meet any 2 criteria? HR > 90 bpm. No. Patient's initial sepsis screen is negative. Does the patient have a suspected source of infection? No. Patient's initial sepsis screen is negative. Risk Assessment: Do you want to hurt yourself or someone else? Patient reports no desire to harm self or others. Onset of symptoms was February 02, 2024. 18:10 Method Of Arrival: Ambulatory db 18:10 Acuity: PRECIOUS 3 db Triage Assessment: 18:18 General: Appears in no apparent distress. uncomfortable, Behavior is calm, cooperative. db Pain: Complains of pain in back. Neuro: Level of Consciousness is awake, alert, obeys commands, Oriented to person, place, time, situation. Respiratory: Airway is patent Respiratory effort is even, unlabored, Respiratory pattern is regular, symmetrical. Musculoskeletal: Circulation, motion, and sensation intact. Capillary refill < 3 seconds. Historical: - PMHx: 18:18 Cirrhosis; Depression; Hypertension; Ulcers; Osteoarthritis; Osteoporosis; db - Immunization history:: Adult Immunizations unknown. - Infectious Disease History:: Denies. - Social history:: Smoking status: Patient denies any tobacco usage or history of. - Family history:: not pertinent. Screenin:06 [facility] ED Fall Risk Assessment (Adult) History of falling in the last 3 months, rs5 including since admission No falls in past 3 months (0 pts) Confusion or Disorientation No (0 pts) Intoxicated or Sedated No (0 pts) Impaired Gait No (0 pts) Mobility Assist Device Used No (0 pt) Altered Elimination No (0 pt) Score/Fall Risk Level 0 - 2 = Low Risk Oriented to surroundings, Maintained a safe environment. Abuse screen: Denies threats or abuse. Nutritional screening: No deficits noted. Tuberculosis screening: No symptoms or risk factors identified. Assessment: 18:07 General: Appears in no apparent distress. uncomfortable, Behavior is calm, cooperative. rs5 Pain: Complains of pain in lower back Pain currently is 4 out of 10 on a pain scale. Quality of pain is described as aching, Is continuous. Neuro: Level of Consciousness is awake, alert, obeys commands, Oriented to person, place, time, situation, Moves all extremities. Cardiovascular: Patient's skin is warm and dry. Respiratory: Airway is patent Respiratory effort is even, unlabored, Respiratory pattern is regular, symmetrical. GI: Abdomen is round non-distended, Abd is soft and non tender X 4 quads. : No signs and/or symptoms were reported regarding the genitourinary system. EENT: No signs and/or symptoms were reported regarding the EENT system. Derm: Skin is intact, Skin is pink, warm \T\ dry. Musculoskeletal: Range of motion: intact in all extremities. 18:22 Reassessment: provider notified of elevated pulse. rs5 19:10 General: Appears in no apparent distress. comfortable, Behavior is calm, cooperative, rg5 appropriate for age. 19:10 Pain: Complains of pain in back Pain currently is 3 out of 10 on a pain scale. Quality rg5 of pain is described as aching. Neuro: Level of Consciousness is awake, alert, obeys commands, Oriented to person, place, time. Cardiovascular: Patient's skin is warm and dry. Cardiovascular: Rhythm is sinus tachycardia. Respiratory: Airway is patent Respiratory effort is even, Respiratory pattern is regular, symmetrical. Respiratory: Airway is patent. GI: Abdomen is round non-distended. : No signs and/or symptoms were reported regarding the genitourinary system. Derm: Skin is intact, Skin is normal. Musculoskeletal: Circulation, motion, and sensation intact. Range of motion: intact in all extremities. Vital Signs: 18:10 BP 141 / 89; Pulse 120; Resp 18; Temp 98.3; Pulse Ox 95% ; Weight 62.6 kg; Height 5 ft. db 6 in. ; Pain 9/10; 18:30 BP 137 / 84; Pulse 110; Resp 17; Pulse Ox 97% on R/A; rs5 18:55 BP 128 / 79; Pulse 117; Resp 16; Pulse Ox 96% ; rs5 19:10 BP 138 / 77; Pulse 110; Resp 17; Temp 98; Pulse Ox 100% on R/A; Pain 3/10; rg5 20:00 BP 138 / 79; Pulse 109; Resp 17; Pulse Ox 100% on R/A; Pain 3/10; rg5 18:10 Body Mass Index 22.27 (62.60 kg, 167.64 cm) db 18:10 Pain Scale: Adult db 19:10 Pain Scale: Adult rg5 20:00 Pain Scale: Adult rg5 ED Course: 17:55 Patient arrived in ED. mr 18:01 Tae Barba MD is Attending Physician. [facility] 18:06 Gucci Mckeon, ALEXI is Primary Nurse. rs5 18:06 Patient has correct armband on for positive identification. Placed in gown. Bed in low rs5 position. Call light in reach. Side rails up X2. 18:06 No provider procedures requiring assistance completed. rs5 18:18 Triage completed. db 18:18 Arm band placed on Patient placed in an exam room. db 18:42 CT Chest Abdomen Pelvis W/O Contrast In Process Unspecified. EDMS 19:57 Sai Bazzi MD is Referral Physician. [facility] 20:12 Provided Education on: post er care. rg5 20:12 Patient did not have IV access during this emergency room visit. rg5 Administered Medications: 18:53 Not Given (Patient Refused): ns 0.9% 1000 ml IV at 1000 ml once; to be given as a bolus rs5 over 60 minutes 19:01 Drug: Ibuprofen PO 600 mg PO once Route: PO; rg5 19:59 Follow up: Response: No adverse reaction; Pain is decreased rg5 19:51 CANCELLED (Duplicate Order): [id number] mg IVP once [facility] 20:00 Drug: Pantoprazole PO 40 mg PO once Route: PO; rg5 20:09 Follow up: Response: No adverse reaction rg5 Medication: 18:55 VIS not applicable for this client. rs5 Outcome: 19:58 Discharge ordered by . [facility] 20:12 Discharged to home ambulatory, rg5 20:12 Condition: stable 20:12 Discharge instructions given to patient, family, Instructed on discharge instructions, follow up and referral plans. Demonstrated understanding of instructions, follow-up care, medications, Prescriptions given X 3, 20:14 Patient left the ED. rg5 Signatures: Dispatcher [employer] EDTae Keating MD MD cha Rivera, Mary, Reg Reg mr Delores Ribeiro, RN Gucci Fink RN RN rs5 Derek Villarreal RN RN rg5
[2024-02-02] MEDS ORDERED: PANTOPRAZOLE 40MG TABLET PO ONE (20:05)
[2024-02-02 20:22] VITALS: TEMP 98; O2SAT 100
[2024-02-02 20:24] VITALS: BP 138/79
== END 2024-02-02 20:14 | disposition home or self-care (01) ==
LOC: ER 17:52
DX: S39.82XA Other specified injuries of lower back, initial encounter (principal); S22.42XA Multiple fractures of ribs, left side, initial encounter for closed fracture; S22.060A Wedge compression fracture of T7-T8 vertebra, initial encounter for closed fracture; S22.070A Wedge compression fracture of T9-T10 vertebra, initial encounter for closed fracture; K74.69 Other cirrhosis of liver; W18.30XA Fall on same level, unspecified, initial encounter
CPT/HCPCS: 71250; 74176; 99283